=== PATIENT | female | born 1945 | race Caucasian/White ===

== ENCOUNTER → 2019-02-02 | Day surgery (SDC) | payer OTHER | LOC: DS 09:48 | PROVIDERS: ATTEND Internal Medicine | DX: R92.8 Other abnormal and inconclusive findings on diagnostic imaging of breast (principal) ==

== ENCOUNTER 2019-04-12 10:21 | Emergency (ER) | payer OTHER ==
[2019-04-12] MEDS ORDERED: LIDOCAINE 1% MPF 5 ML VIAL ONE (11:06)
[2019-04-12] MEDS ORDERED: TETANUS & DIPHTHERIA TOX,ADULT 0.5 ML VIAL ONE (11:06)
--- NOTE | 2019-04-12 11:23 | RAD REPORT ---
EXAM DESCRIPTION: CT - Head Brain Wo Cont - 04/12/2019 11:11 am CLINICAL HISTORY: TRAUMA Fall, trauma, head injury COMPARISON: Facial Bones W/ Mpr dated 04/12/2019 TECHNIQUE: All CT scans are performed using dose optimization technique as appropriate and may inclu de automated exposure control or mA/KV adjustment according to patient size. FINDINGS: No intracranial hemorrhage, hydrocephalus or extra-axial fluid collection.Mild generalized brain atrophy is present with mild periventricular and deep white matter chronic microvascular ische bull changes.No areas of brain edema or evidence of midline shift. The paranasal sinuses and mastoids are clear. The calvarium is intact. IMPRESSION: No acute intracranial abnormality.
--- NOTE | 2019-04-12 11:27 | RAD REPORT ---
EXAM DESCRIPTION: CT - CTFB CLINICAL HISTORY: FACIAL PAIN Trauma to face with pain and swelling. COMPARISON: No comparisons TECHNIQUE: Axial 2 mm thick images of the face were obtained with sagittal and coronal reconstructio n images. All CT scans are performed using dose optimization technique as appropriate and may include automated exposure control or mA/KV adjustment according to patient size. FINDINGS: Minimal nasal bone fracture is seen with adjacent soft tissue swelling.No additional facia l bone fracture is evident.The mandible is intact. The globes and orbital contents are grossly unremarkable.The paranasal sinuses and mastoids are clear . Carotid atherosclerosis seen. IMPRESSION: Minimal nasal bone fracture.
--- NOTE | 2019-04-12 11:39 | RAD REPORT ---
EXAM DESCRIPTION: RAD - Knee Right 2 View - 04/12/2019 11:05 am CLINICAL HISTORY: PAIN COMPARISON: No comparisons FINDINGS: Subtle lucency is seen in the patella which could represent a hairline fracture if the pat ient is point tender in this region. Elsewhere, no evidence of fracture or joint effusion seen.
--- NOTE | 2019-04-12 11:43 | RAD REPORT ---
EXAM DESCRIPTION: RAD - Knee Left 2 View - 04/12/2019 11:06 am CLINICAL HISTORY: PAIN Trauma, pain COMPARISON: <Comparisons> FINDINGS: No acute fracture or dislocation seen. Trace suprapatellar joint effusion.
--- NOTE | 2019-04-12 12:25 | EDPHYS ---
Physician Documentation [facility] Name: Michela Mata Age: 73 yrs Sex: Female : 1945 Arrival Date: 04/12/2019 Time: 10:24 Bed 13 Private MD: Je Juares F ED Physician Ward Matthews HPI: 04/12 12:25 This 73 yrs old Female presents to ER via Ambulatory with complaints of Fall kb Injury. 12:25 Details of fall: The patient fell from an upright position, while walking. Onset: The kb symptoms/episode began/occurred just prior to arrival. Associated injuries: The patient sustained upper lip, laceration, right knee, abrasion, left knee, abrasion, ecchymosis, swelling, nose, ecchymosis, painful injury, swelling. Severity of symptoms: At their worst the symptoms were moderate, in the emergency department the symptoms are unchanged. The patient has not experienced similar symptoms in the past. The patient has not recently seen a physician. Pt reports she had a nosebleed, slipped in the blood and fell in the bathroom causing laceration to lip and bruising/swelling to nose. Reports she tripped over curb in parking lot and landed on her knees scraping those up as well. Denies LOC, headahce. Historical: - Allergies: 10:40 No Known Allergies; hb - Home Meds: 10:40 aspirin 81 mg Oral chew 1 tab once daily [Active]; hb - Immunization history:: Adult Immunizations up to date. - Social history:: Smoking status: Patient/guardian denies using tobacco. - Ebola Screening: : No symptoms or risks identified at this time. ROS: 12:10 Constitutional: Negative for fever, chills, and weight loss, Eyes: Negative for injury, kb pain, redness, and discharge, Cardiovascular: Negative for chest pain, palpitations, and edema, Respiratory: Negative for shortness of breath, cough, wheezing, and pleuritic chest pain, Abdomen/GI: Negative for abdominal pain, nausea, vomiting, diarrhea, and constipation, Back: Negative for injury and pain, : Negative for injury, bleeding, discharge, and swelling, Neuro: Negative for headache, weakness, numbness, tingling, and seizure. 12:10 ENT: Positive for injury or acute deformity, nose bleed. 12:10 Skin: Positive for abrasion(s), ecchymosis, laceration(s), swelling. Exam: 12:14 Constitutional: This is a well developed, well nourished patient who is awake, alert, kb and in no acute distress. Head/Face: Normocephalic, atraumatic. Chest/axilla: Normal chest wall appearance and motion. Nontender with no deformity. No lesions are appreciated. Cardiovascular: Regular rate and rhythm with a normal S1 and S2. No gallops, murmurs, or rubs. Normal PMI, no JVD. No pulse deficits. Respiratory: Lungs have equal breath sounds bilaterally, clear to auscultation and percussion. No rales, rhonchi or wheezes noted. No increased work of breathing, no retractions or nasal flaring. Abdomen/GI: Soft, non-tender, with normal bowel sounds. No distension or tympany. No guarding or rebound. No evidence of tenderness throughout. MS/ Extremity: Pulses equal, no cyanosis. Neurovascular intact. Full, normal range of motion. Neuro: Awake and alert, GCS 15, oriented to person, place, time, and situation. Cranial nerves II-XII grossly intact. Motor strength 5/5 in all extremities. Sensory grossly intact. Cerebellar exam normal. Normal gait. 12:14 ENT: Nose: clotted blood, in left nare, ecchymosis and swelling noted to bridge ofnose. 12:14 Skin: injury, abrasion(s), small abrasion noted, moderate sized abrasion noted, of the right knee and left knee, laceration(s), the wound is approximately 2 cm(s), of the upper lip, that can be described as clean, no foreign body, irregular, without bleeding. Vital Signs: 10:39 BP 119 / 108; Pulse 110; Resp 16; Temp 98; Pulse Ox 100% ; Weight 83.91 kg; Height 5 hb ft. 6 in. (167.64 cm); Pain 1/10; 10:39 Body Mass Index 29.86 (83.91 kg, 167.64 cm) hb Frontier Coma Score: 10:39 Eye Response: spontaneous(4). Verbal Response: oriented(5). Motor Response: obeys hb commands(6). Total: 15. Trauma Score (Adult): 10:39 Eye Response: spontaneous(1); Verbal Response: oriented(1); Motor Response: obeys hb commands(2); Systolic BP: > 89 mm Hg(4); Respiratory Rate: 10 to 29 per min(4); Frontier Score: 15; Trauma Score: 12 Laceration: 12:23 Wound Repair of 1.5cm ( 0.6in ) subcutaneous laceration to upper lip. Irregularly jr8 shaped.. Minimal bleeding noted.. Distal neuro/vascular/tendon intact. Anesthesia: Local anesthetic administered with 1 mls of 1% lidocaine. Wound prep: Simple cleansing with hibiclenz by ny, Wound irrigation with saline by ny. Skin closed with 4 4-0 Vicryl using simple sutures and sterile technique. Patient tolerated well. MDM: 10:31 Patient medically screened. kb 12:09 Data reviewed: vital signs, nurses notes. Data interpreted: Pulse oximetry: on room air kb is 100 %. Interpretation: normal. Counseling: I had a detailed discussion with the patient and/or guardian regarding: the historical points, exam findings, and any diagnostic results supporting the discharge/admit diagnosis, radiology results, the need for outpatient follow up, an ENT specialist, a family practitioner, to return to the emergency department if symptoms worsen or persist or if there are any questions or concerns that arise at home. 12:27 ED course: No point tenderness on right patella. kb 04/12 10:37 Order name: Knee Right 2 View XRAY; Complete Time: 11:43 kb 04/12 10:37 Order name: Knee Left 2 View XRAY; Complete Time: 11:45 kb 04/12 10:37 Order name: CT Head Brain wo Cont; Complete Time: 11:28 kb 04/12 10:37 Order name: CT Facial Bones W/O Con; Complete Time: 11:28 kb 04/12 10:37 Order name: Vicryl, Sutures; Complete Time: 11:02 kb 04/12 10:37 Order name: Dressing - Wound; Complete Time: 11:02 kb 04/12 10:37 Order name: Gloves, Sterile; Complete Time: 11:03 kb 04/12 10:37 Order name: Setup Suture Tray; Complete Time: 11:03 kb Administered Medications: 11:00 Drug: Tetanus-Diphtheria Toxoid Adult 0.5 ml {Catcher Filter Tip: [employer]. Exp: sg 12/10/2020. Lot #: [id number]. } Route: IM; Site: right deltoid; 11:42 Follow up: Response: No adverse reaction 11:01 Drug: Lidocaine (1 %) 1 vials {Note: medication administered by Dena JC.} Volume: sg 5 ml; Route: Infiltration; 12:36 Drug: Augmentin 875 mg Route: PO; sg Disposition: 17:20 Co-signature as Attending Physician, Ward Matthews MD. rn Disposition: 04/12/19 12:24 Discharged to Home. Impression: Laceration without foreign body of lip, Abrasion of knee, Fracture of nasal bones, Epistaxis, Fall on same level from slipping, tripping and stumbling. - Condition is Stable. - Discharge Instructions: Mouth Laceration, Irab-dp-Hkfe, Fall Prevention in the Home, Decf-jv-[id number], Nasal Fracture, Kgok-py-Vuob, Nosebleed, Loxu-qa-Rkmt. - Prescriptions for Augmentin 875- 125 mg Oral Tablet - take 1 tablet by ORAL route every 12 hours for 10 days; 20 tablet. - Medication Reconciliation Form, Thank You Letter, Antibiotic Education, Prescription Opioid Use form. - Follow up: Private Physician; When: 2 - 3 days; Reason: Recheck today's complaints, Continuance of care, Re-evaluation by your physician. Follow up: Emergency Department; When: As needed; Reason: Worsening of condition. Follow up: Arabella Mahmood MD; When: 2 - 3 days; Reason: Recheck today's complaints. Signatures: Dispatcher [employer] EDMA Kay Chaparro, ELVIE JC-Deondre Fox RN RN Ward Matthews MD MD rn Roszak, Josh, PA PA jr8 Yoli Trotter RN RN hb Corrections: (The following items were deleted from the chart) 13:49 12:24 04/12/2019 12:24 Discharged to Home. Impression: Laceration without foreign body hb of lip; Abrasion of knee; Fracture of nasal bones; Epistaxis; Fall on same level from slipping, tripping and stumbling. Condition is Stable. Forms are Medication Reconciliation Form, Thank You Letter, Antibiotic Education, Prescription Opioid Use. Follow up: Private Physician; When: 2 - 3 days; Reason: Recheck today's complaints, Continuance of care, Re-evaluation by your physician. Follow up: Emergency Department; When: As needed; Reason: Worsening of condition. Follow up: Arabella Mahmood; When: 2 - 3 days; Reason: Recheck today's complaints. kb
--- NOTE | 2019-04-12 12:25 | ER ---
Nurse's Notes [facility] Name: Michela Mata Age: 73 yrs Sex: Female : 1945 Arrival Date: 04/12/2019 Time: 10:24 Bed 13 Private MD: Je Juares F Diagnosis: Laceration without foreign body of lip;Abrasion of knee;Fracture of nasal bones;Epistaxis;Fall on same level from slipping, tripping and stumbling Presentation: 04/12 10:36 Presenting complaint: Had a nosebleed, slipped in the blood, hit face on floor, then hb slipped of a curb landing on knees. Laceration to upper lip and abrasions to bilateral knees noted. Bleeding controlled. Denies LOC. Take ASA. Care prior to arrival: None. Mechanism of Injury: Fall from standing position. Trauma event details: Injury occurred in the [facility], Injury occurred: at home. Injury occurred: April 12, 2019. 10:36 Acuity: ENOCH 2 hb 10:36 Method Of Arrival: Ambulatory hb Trauma Activation: Alert Physician: ED Physician; Name: ; Notified At: ; Arrived At: Physician: General Surgeon; Name: ; Notified At: ; Arrived At: Physician: Radiology; Name: ; Notified At: ; Arrived At: Physician: Respiratory; Name: ; Notified At: ; Arrived At: Physician: Lab; Name: ; Notified At: ; Arrived At: Historical: - Allergies: 10:40 No Known Allergies; hb - Home Meds: 10:40 aspirin 81 mg Oral chew 1 tab once daily [Active]; hb - Immunization history:: Adult Immunizations up to date. - Social history:: Smoking status: Patient/guardian denies using tobacco. - Ebola Screening: : No symptoms or risks identified at this time. Screenin:39 Abuse screen: Denies threats or abuse. Denies injuries from another. Tuberculosis hb screening: No symptoms or risk factors identified. Primary Survey: 10:38 NO uncontrolled hemorrhage observed. A: The patient is alert. Airway: patent, No hb supplemental oxygen in use on arrival. Oral cavity: clear, Trachea midline. Breathing/Chest: Respiratory pattern: regular, Respiratory effort: spontaneous, unlabored, Chest inspection: symmetrical rise and fall of the chest. Circulation: Skin color: pink, Skin temperature: warm, dry. Disability Alert. Exposure/Environment: Obvious injury(ies) are noted at this time: Upper lip laceration, bilateral knee abreasions. Assessment: 11:00 Reassessment: xray at bedside at this time. sg Vital Signs: 10:39 BP 119 / 108; Pulse 110; Resp 16; Temp 98; Pulse Ox 100% ; Weight 83.91 kg; Height 5 hb ft. 6 in. (167.64 cm); Pain 1/10; 10:39 Body Mass Index 29.86 (83.91 kg, 167.64 cm) hb Gildardo Coma Score: 10:39 Eye Response: spontaneous(4). Verbal Response: oriented(5). Motor Response: obeys hb commands(6). Total: 15. Trauma Score (Adult): 10:39 Eye Response: spontaneous(1); Verbal Response: oriented(1); Motor Response: obeys hb commands(2); Systolic BP: > 89 mm Hg(4); Respiratory Rate: 10 to 29 per min(4); Gildardo Score: 15; Trauma Score: 12 ED Course: 10:24 Patient arrived in ED. mr 10:24 Je Juares MD is Private Physician. mr 10:28 Kay Chaparro FNP-C [facility]. kb 10:28 Wrad Matthews MD is Attending Physician. kb 10:37 Triage completed. hb 10:39 Patient has correct armband on for positive identification. hb 10:39 Patient maintains SpO2 saturation greater than 95% on room air. hb 10:40 Deondre Thompson, RN is Primary Nurse. sg 11:06 Knee Right 2 View XRAY In Process Unspecified. EDMS 11:06 Knee Left 2 View XRAY In Process Unspecified. EDMS 11:11 CT Head Brain wo Cont In Process Unspecified. EDMS 11:11 CT Facial Bones W/O Con In Process Unspecified. EDMS 12:24 Arabella Mahmood MD is Referral Physician. kb Administered Medications: 11:00 Drug: Tetanus-Diphtheria Toxoid Adult 0.5 ml {Spool Sander: [employer]. Exp: sg 12/10/2020. Lot #: [id number]. } Route: IM; Site: right deltoid; 11:42 Follow up: Response: No adverse reaction sg 11:01 Drug: Lidocaine (1 %) 1 vials {Note: medication administered by Dena ACUÑA} Volume: sg 5 ml; Route: Infiltration; 12:36 Drug: Augmentin 875 mg Route: PO; sg Outcome: 12:24 Discharge ordered by MD. choudhary 13:49 Patient left the ED. hb Signatures: Dispatcher [employer] EDNC Kay Chaparro FNP-C FNP-Ckb Gay, Steven, RN RN [facility] Yoli Trotter RN RN hb
[2019-04-12] MEDS ORDERED: AMOX/K CLAV 875 MG TAB ONE (12:48)
== END 2019-04-12 13:49 | disposition home or self-care (01) ==
LOC: ER 10:21
PROC: 0CQ03ZZ Repair Upper Lip, Percutaneous Approach (ICD-10-PCS; principal; 2019-04-12)
DX: S01.511A Laceration without foreign body of lip, initial encounter (principal); S80.212A Abrasion, left knee, initial encounter; S80.211A Abrasion, right knee, initial encounter; S02.2XXA Fracture of nasal bones, initial encounter for closed fracture; W01.0XXA Fall on same level from slipping, tripping and stumbling without subsequent striking against object, initial encounter; Y92.002 Bathroom of unspecified non-institutional (private) residence as the place of occurrence of the external cause; Y93.01 Activity, walking, marching and hiking; Y92.481 Parking lot as the place of occurrence of the external cause; R04.0 Epistaxis; Z23 Encounter for immunization
CPT/HCPCS: 70450; 70486; 76377; 90471; 90714; 99284

== ENCOUNTER 2019-08-07 10:59 | Emergency (ER) | payer OTHER ==
[2019-08-07] MEDS ORDERED: ASPIRIN 81 MG CHEWABLE TABLET ONE (11:29)
[2019-08-07] MEDS ORDERED: METOPROLOL TAR 50 MG TAB ONE (11:30)
[2019-08-07 11:35] LABS: Absolute Lymphocytes (CBC) 2.3 K/uL (0.7-4.9); Basophils % 0.7 % (0-1.3); Lymphocytes % 18.3 % (15.3-44.8); MPV 7.4 fL (7.6-11.3); RBC Red Blood Cell Count 4.58 M/uL (3.86-4.86)
[2019-08-07 11:45] LABS: Protime INR 0.96
[2019-08-07 11:56] LABS: ALT/SGPT 22 U/L (12-78); AST/SGOT 20 U/L (15-37); Albumin 3.9 g/dL (3.4-5.0); Alkaline Phosphatase 84 U/L (45-117); BUN Blood Urea Nitrogen 13 mg/dL (7-18); Bicarbonate 26 mmol/L (21-32); Bilirubin Direct 0.2 mg/dL (0-0.2); Bilirubin Total 0.7 mg/dL (0.2-1.0); Glucose Level 120 mg/dL (74-106); Lipase 166 U/L (73-393); NT PRO-BNP 2666 pg/mL (<125); Sodium Level 131 mmol/L (136-145); Troponin (Emerg Dept Use Only) < 0.02 ng/mL (0.0-0.045)
--- NOTE | 2019-08-07 12:07 | RAD REPORT ---
EXAM DESCRIPTION: RAD - Chest Single View - 08/07/2019 11:55 am CLINICAL HISTORY: CHEST PAIN Chest pain. COMPARISON: CHEST PA AND LAT 2 VIEW dated 08/03/2011 FINDINGS: Portable technique limits examination quality. 2-3 cm rounded density is present in the left mid lung, new since comparative study. Differential wou ld include a lung mass or less likely round pneumonia. The heart is upper limit of normal in size. No displaced fractures.CT chest followup assessment suggested.
--- NOTE | 2019-08-07 13:09 | RAD REPORT ---
EXAM DESCRIPTION: CT - Thorax W/ Con - 08/07/2019 12:54 pm CLINICAL HISTORY: Intermittent left-sided chest pain, hypertension, abnormal chest film COMPARISON: Portable chest same date TECHNIQUE: Dynamically enhanced 5 mm thick images of the chest were obtained during administration o f 100 mL non-ionic IV contrast. All CT scans are performed using dose optimization technique as appropriate and may include automated exposure control or mA/KV adjustment according to patient size. FINDINGS: In the anterior mid left lung field there is a 6 centimeter lobulated solid mass. This abu ts the pleura. No chest wall invasion. There are no air bronchograms or calcifications. Mass encircle s vasculature in the anterior mid lung field. This is the correlate to the chest film finding. The ap pearance is that of a malignancy rather than round pneumonia. No adjacent satellite lesions. No abnor mal hilar lymphadenopathy seen. No pleural thickening or pleural effusion. No pneumothorax. No chest wall mass or abnormal axillary lymphadenopathy. No abnormal mediastinal or hilar mass or lymphadenopathy seen. Aortic vascular calcifications are pre sent. Aorta and pulmonary arterial tree enhance normally. No pericardial thickening or effusion. Bony degenerative changes are present. No pathologic bone process seen. IMPRESSION: A lobulated 6 centimeter solid mass is present in the anterior midlung field as a correl ate to the plain film finding. Lateral margin abuts the pleura but is without clear chest wall inva galo. The solid mass has the appearance of malignancy rather than round pneumonia. No abnormal mediastinal or hilar lymphadenopathy.
--- NOTE | 2019-08-07 14:07 | ER ---
Nurse's Notes [facility] Name: Michela Mata Age: 74 yrs Sex: Female : 1945 Arrival Date: 08/07/2019 Time: 11:03 Bed 6 Private MD: Je Juares F Diagnosis: Essential (primary) hypertension;Chest pain on breathing;Chest pain, unspecified-6 cm left chest mass,anterior mid lung field;Tobacco abuse counseling;Tobacco use Presentation: 08/07 11:06 Presenting complaint: Intermittent left sided chest pain x 4 days. Denies hb nausea/cough/SOB. Transition of care: patient was not received from another setting of care. Onset of symptoms was August 03, 2019. Risk Assessment: Do you want to hurt yourself or someone else? Patient reports no desire to harm self or others. Initial Sepsis Screen: Does the patient meet any 2 criteria? No. Patient's initial sepsis screen is negative. Does the patient have a suspected source of infection? No. Patient's initial sepsis screen is negative. Care prior to arrival: None. 11:06 Method Of Arrival: Ambulatory hb 11:06 Acuity: ENOCH 3 hb Historical: - Allergies: 11:10 No Known Allergies; hb - Home Meds: 11:10 aspirin 81 mg Oral chew 1 tab once daily [Active]; hb - PMHx: 11:10 Hypertension; hb - Immunization history:: Adult Immunizations up to date. - Social history:: Smoking status: Patient uses tobacco products, smokes one pack cigarettes per day. - Ebola Screening: : No symptoms or risks identified at this time. - Family history:: not pertinent. Screenin:17 Abuse screen: Denies threats or abuse. Nutritional screening: No deficits noted. tw2 Tuberculosis screening: No symptoms or risk factors identified. Fall Risk Secondary diagnosis (15 points) impaired mobility, Ambulatory Aid- Crutches/Cane/Walker (15 pts). Assessment: 11:16 General: Appears in no apparent distress. Behavior is calm, cooperative, appropriate tw2 for age. Pain: Complains of pain in chest Pain does not radiate. Pain began 2-3 days ago. 11:16 Neuro: Level of Consciousness is awake, alert, obeys commands, Oriented to person, tw2 place, time, situation. Cardiovascular: Reports chest pain, Denies shortness of breath, Heart tones S1 S2 Patient's skin is warm and dry. Respiratory: Airway is patent Respiratory effort is even, unlabored, Respiratory pattern is regular, symmetrical, Breath sounds are clear bilaterally. GI: No signs and/or symptoms were reported involving the gastrointestinal system. Abdomen is flat, Bowel sounds present X 4 quads. : No signs and/or symptoms were reported regarding the genitourinary system. EENT: No signs and/or symptoms were reported regarding the EENT system. Derm: No signs and/or symptoms reported regarding the dermatologic system. Musculoskeletal: Range of motion: intact in all extremities. 12:19 Reassessment: Patient appears in no apparent distress at this time. No changes from tw2 previously documented assessment. Patient and/or family updated on plan of care and expected duration. Pain level reassessed. Patient is alert, oriented x 3, equal unlabored respirations, skin warm/dry/pink. 13:13 Reassessment: Patient appears in no apparent distress at this time. No changes from tw2 previously documented assessment. Patient and/or family updated on plan of care and expected duration. Pain level reassessed. Patient is alert, oriented x 3, equal unlabored respirations, skin warm/dry/pink. Vital Signs: 11:10 BP 198 / 98; Pulse 67; Resp 20; Temp 97.8; Pulse Ox 100% on R/A; Weight 89.36 kg; hb Height 5 ft. 5 in. (165.10 cm); Pain 0/10; 11:38 BP 142 / 95; Pulse 90; Resp 18; Pulse Ox 100% on R/A; sg 12:19 BP 129 / 91; Pulse 77; Resp 20; Pulse Ox 96% on R/A; tw2 13:13 BP 156 / 88; Pulse 76; Resp 19; Pulse Ox 95% on R/A; tw2 14:28 BP 145 / 77; Pulse 71; Resp 19; Pulse Ox 95% on R/A; tw2 11:10 Body Mass Index 32.78 (89.36 kg, 165.10 cm) hb ED Course: 11:03 Patient arrived in ED. mr 11:03 Je Juares MD is Private Physician. mr 11:08 Triage completed. hb 11:10 Arm band placed on. hb 11:16 Cinthya Delarosa, RON is Primary Nurse. tw2 11:17 Bed in low position. Call light in reach. comb tender on. Pulse ox on. NIBP on. tw2 11:17 Patient maintains SpO2 saturation greater than 95% on room air. tw2 11:20 Angel Roe MD is Attending Physician. [facility] 11:20 EKG done, by tool grinding technician. reviewed by Angel Roe MD. at1 11:22 Inserted saline lock: 22 gauge in right forearm, using aseptic technique. Blood tw2 collected. 11:54 XRAY Chest (1 view) In Process Unspecified. EDMS 12:56 CT Chest W/ Con In Process Unspecified. EDMS 14:02 Je Juares MD is Referral Physician. [facility] 14:02 Unruly Tavera MD is Referral Physician. [facility] 14:21 Urine collected: clean catch specimen, clear, cloudy. ms 14:28 No provider procedures requiring assistance completed. IV discontinued, intact, tw2 bleeding controlled, No redness/swelling at site. Pressure dressing applied. Administered Medications: 11:35 Drug: Aspirin 162 mg Route: PO; sg 12:19 Follow up: Response: No adverse reaction tw2 11:38 Drug: Lopressor (metoprolol TARTRATE) 50 mg Route: PO; sg 12:20 Follow up: Response: No adverse reaction; Blood pressure is lowered tw2 14:27 Not Given (Patient Refused): Augmentin 875 mg PO once tw2 14:28 Not Given (Patient Refused): Rocephin 1 grams IV at per protocol once; Given slow IV tw2 push per pharmacy instructions Outcome: 14:06 Discharge ordered by . [facility] 14:28 Discharged to home ambulatory, with family. tw2 14:28 Condition: stable 14:28 Discharge instructions given to patient, family, Instructed on discharge instructions, follow up and referral plans. no drinking with medication, no driving heavy equipment, medication usage, Demonstrated understanding of instructions, follow-up care, medications, Prescriptions given X 3. 14:29 Patient left the ED. tw2 Signatures: Dispatcher [employer] Deondre Pardo, RN Angel Johnson MD MD cha Rivera, Cynthia mr Key, Molly StephensonRobyn, agribusiness professor EKG Tat1 Yoli Trotter RN RN Cinthya Delarosa RN RN tw2
--- NOTE | 2019-08-07 14:07 | EDPHYS ---
Physician Documentation [facility] Name: Michela Mata Age: 74 yrs Sex: Female : 1945 Arrival Date: 08/07/2019 Time: 11:03 Bed 6 Private MD: Je Juares F ED Physician Angel Roe HPI: 08/07 12:43 This 74 yrs old Female presents to ER via Ambulatory with complaints of Chest aaron Pain. 12:43 This 74 yrs old Female presents to ER via Ambulatory with complaints of Chest aaron Pain. 12:43 The patient or guardian reports chest pain that is located primarily in the anterior aaron chest wall, left. Onset: 5 day(s) ago. The pain does not radiate. Associated signs and symptoms: The patient has no apparent associated signs or symptoms. The chest pain is described as a pressure. Duration: The patient or guardian reports multiple episodes, that have now resolved. Severity of pain: At its worst the pain was mild moderate in the emergency department the pain has resolved. The patient has experienced a previous episode, last night. Historical: - Allergies: 11:10 No Known Allergies; hb - Home Meds: 11:10 aspirin 81 mg Oral chew 1 tab once daily [Active]; hb - PMHx: 11:10 Hypertension; hb - Immunization history:: Adult Immunizations up to date. - Social history:: Smoking status: Patient uses tobacco products, smokes one pack cigarettes per day. - Ebola Screening: : No symptoms or risks identified at this time. - Family history:: not pertinent. ROS: 12:43 Constitutional: Negative for fever, chills, and weight loss, Eyes: Negative for injury, aaron pain, redness, and discharge, ENT: Negative for injury, pain, and discharge, Neck: Negative for injury, pain, and swelling, Respiratory: Negative for shortness of breath, cough, wheezing, and pleuritic chest pain, Abdomen/GI: Negative for abdominal pain, nausea, vomiting, diarrhea, and constipation, Back: Negative for injury and pain, : Negative for injury, bleeding, discharge, and swelling, MS/Extremity: Negative for injury and deformity, Skin: Negative for injury, rash, and discoloration, Neuro: Negative for headache, weakness, numbness, tingling, and seizure, Psych: Negative for depression, anxiety, suicide ideation, homicidal ideation, and hallucinations, Allergy/Immunology: Negative for hives, rash, and allergies, Endocrine: Negative for neck swelling, polydipsia, polyuria, polyphagia, and marked weight changes, Hematologic/Lymphatic: Negative for swollen nodes, abnormal bleeding, and unusual bruising. 12:43 Cardiovascular: Positive for chest pain, of the left lateral posterior chest and left lateral anterior chest. Exam: 12:43 Constitutional: This is a well developed, well nourished patient who is awake, alert, aaron and in no acute distress. Head/Face: Normocephalic, atraumatic. Eyes: Pupils equal round and reactive to light, extra-ocular motions intact. Lids and lashes normal. Conjunctiva and sclera are non-icteric and not injected. Cornea within normal limits. Periorbital areas with no swelling, redness, or edema. ENT: Nares patent. No nasal discharge, no septal abnormalities noted. Tympanic membranes are normal and external auditory canals are clear. Oropharynx with no redness, swelling, or masses, exudates, or evidence of obstruction, uvula midline. Mucous membranes moist. Neck: Trachea midline, no thyromegaly or masses palpated, and no cervical lymphadenopathy. Supple, full range of motion without nuchal rigidity, or vertebral point tenderness. No Meningismus. Chest/axilla: Normal chest wall appearance and motion. Nontender with no deformity. No lesions are appreciated. Cardiovascular: Regular rate and rhythm with a normal S1 and S2. No gallops, murmurs, or rubs. Normal PMI, no JVD. No pulse deficits. Respiratory: Lungs have equal breath sounds bilaterally, clear to auscultation and percussion. No rales, rhonchi or wheezes noted. No increased work of breathing, no retractions or nasal flaring. Abdomen/GI: Soft, non-tender, with normal bowel sounds. No distension or tympany. No guarding or rebound. No evidence of tenderness throughout. Back: No spinal tenderness. No costovertebral tenderness. Full range of motion. Skin: Warm, dry with normal turgor. Normal color with no rashes, no lesions, and no evidence of cellulitis. MS/ Extremity: Pulses equal, no cyanosis. Neurovascular intact. Full, normal range of motion. Neuro: Awake and alert, GCS 15, oriented to person, place, time, and situation. Cranial nerves II-XII grossly intact. Motor strength 5/5 in all extremities. Sensory grossly intact. Cerebellar exam normal. Normal gait. Psych: Awake, alert, with orientation to person, place and time. Behavior, mood, and affect are within normal limits. 12:43 Musculoskeletal/extremity: DVT Exam: No signs of deep vein thrombosis. no pain, no swelling, no tenderness, negative Homans' sign noted on exam, no appreciated bluish discoloration, no erythema, no increased warmth. Vital Signs: 11:10 BP 198 / 98; Pulse 67; Resp 20; Temp 97.8; Pulse Ox 100% on R/A; Weight 89.36 kg; hb Height 5 ft. 5 in. (165.10 cm); Pain 0/10; 11:38 BP 142 / 95; Pulse 90; Resp 18; Pulse Ox 100% on R/A; sg 12:19 BP 129 / 91; Pulse 77; Resp 20; Pulse Ox 96% on R/A; tw2 13:13 BP 156 / 88; Pulse 76; Resp 19; Pulse Ox 95% on R/A; tw2 14:28 BP 145 / 77; Pulse 71; Resp 19; Pulse Ox 95% on R/A; tw2 11:10 Body Mass Index 32.78 (89.36 kg, 165.10 cm) hb MDM: 11:20 Patient medically screened. [facility] 12:56 Data reviewed: vital signs, nurses notes, lab test result(s), EKG, radiologic studies, [facility] CT scan, plain films. 08/07 11:21 Order name: Basic Metabolic Panel; Complete Time: 12:36 [facility] 08/07 11:21 Order name: CBC with Diff; Complete Time: 12:36 [facility] 08/07 11:21 Order name: LFT's; Complete Time: 12:36 [facility] 08/07 11:21 Order name: Magnesium; Complete Time: 12:36 [facility] 08/07 11:21 Order name: NT PRO-BNP; Complete Time: 12:36 [facility] 08/07 11:21 Order name: PT-INR; Complete Time: 12:36 [facility] 08/07 11:21 Order name: Troponin (emerg Dept Use Only); Complete Time: 12:36 [facility] 08/07 11:21 Order name: XRAY Chest (1 view); Complete Time: 12:36 [facility] 08/07 11:21 Order name: Lipase; Complete Time: 12:36 [facility] 08/07 12:43 Order name: CT Chest W/ Con; Complete Time: 13:27 [facility] 08/07 12:43 Order name: Blood Culture Adult (2) [facility] 08/07 12:43 Order name: Procalcitonin [facility] 08/07 14:23 Order name: Urine Dipstick--Ancillary (enter results) 08/07 11:14 Order name: EKG; Complete Time: 11:14 08/07 11:21 Order name: Cardiac monitoring; Complete Time: 11:22 [facility] 08/07 11:21 Order name: IV Saline Lock; Complete Time: 11:28 [facility] 08/07 11:21 Order name: Labs collected and sent; Complete Time: 11:28 [facility] 08/07 11:21 Order name: O2 Per Protocol; Complete Time: 11:22 [facility] 08/07 11:21 Order name: O2 Sat Monitoring; Complete Time: 11:22 [facility] 08/07 11:21 Order name: Urine Dipstick-Ancillary (obtain specimen); Complete Time: 14:21 [facility] Administered Medications: 11:35 Drug: Aspirin 162 mg Route: PO; sg 12:19 Follow up: Response: No adverse reaction tw2 11:38 Drug: Lopressor (metoprolol TARTRATE) 50 mg Route: PO; sg 12:20 Follow up: Response: No adverse reaction; Blood pressure is lowered tw2 14:27 Not Given (Patient Refused): Augmentin 875 mg PO once tw2 14:28 Not Given (Patient Refused): Rocephin 1 grams IV at per protocol once; Given slow IV tw2 push per pharmacy instructions Disposition: 08/07/19 14:06 Discharged to Home. Impression: Essential (primary) hypertension, Chest pain on breathing, Chest pain, unspecified - 6 cm left chest mass,anterior mid lung field, Tobacco abuse counseling, Tobacco use. - Condition is Fair. - Discharge Instructions: Nonspecific Chest Pain, Hypertension, Nonspecific Chest Pain, Vidt-ws-Pgog, Hypertension, Wvyr-as-Lyyd, Lung Cancer, Tobacco Use Disorder, How to Take Your Blood Pressure, Gjci-uf-Vwtw, Aspirin and Your Heart, Managing Your Hypertension. - Prescriptions for Norvasc 5 mg Oral Tablet - take 1 tablet by ORAL route once daily; 20 tablet. Tylenol- Codeine #3 300-30 mg Oral Tablet - take 2 tablet by ORAL route every 6 hours As needed; 30 tablet. Augmentin 875- 125 mg Oral Tablet - take 1 tablet by ORAL route every 12 hours for 10 days; 20 tablet. - Medication Reconciliation Form, Thank You Letter, Antibiotic Education, Prescription Opioid Use form. - Follow up: Je Juares MD; When: 2 - 3 days; Reason: Recheck today's complaints, Continuance of care, Re-evaluation by your physician. Follow up: Unruly Tavera MD; When: 2 - 3 days; Reason: Recheck today's complaints, Continuance of care, Re-evaluation by your physician. - Problem is new. - Symptoms have improved. Signatures: Dispatcher [employer] EDMS Deondre Thompson RN RN sg Anderson, Corey, MD MD cha Baxter, Heather, RN RN Cinthya Delarosa RN RN tw2 Corrections: (The following items were deleted from the chart) 14:07 14:06 08/07/2019 14:06 Discharged to Home. Impression: Essential (primary) aaron hypertension; Chest pain on breathing; Chest pain, unspecified - 6 cm left chest mass,anterior mid lung field. Condition is Fair. Forms are Medication Reconciliation Form, Thank You Letter, Antibiotic Education, Prescription Opioid Use. Follow up: Je Juares; When: 2 - 3 days; Reason: Recheck today's complaints, Continuance of care, Re-evaluation by your physician. Follow up: Unruly Tavera; When: 2 - 3 days; Reason: Recheck today's complaints, Continuance of care, Re-evaluation by your physician. Problem is new. Symptoms have improved. aaron 14:29 14:07 08/07/2019 14:06 Discharged to Home. Impression: Essential (primary) tw2 hypertension; Chest pain on breathing; Chest pain, unspecified - 6 cm left chest mass,anterior mid lung field; Tobacco abuse counseling; Tobacco use. Condition is Fair. Discharge Instructions: Nonspecific Chest Pain, Hypertension, Nonspecific Chest Pain, Dkjy-dr-Eudu, Hypertension, Vube-yv-Luiu, Lung Cancer, How to Take Your Blood Pressure, Zszb-ld-Pnsq, Aspirin and Your Heart, Managing Your Hypertension, Tobacco Use Disorder. Prescriptions for Norvasc 5 mg Oral Tablet - take 1 tablet by ORAL route once daily; 20 tablet, Tylenol-Codeine #3 300-30 mg Oral Tablet - take 2 tablet by ORAL route every 6 hours As needed; 30 tablet. and Forms are Medication Reconciliation Form, Thank You Letter, Antibiotic Education, Prescription Opioid Use. Follow up: Je Juares; When: 2 - 3 days; Reason: Recheck today's complaints, Continuance of care, Re-evaluation by your physician. Follow up: Unruly Tavera; When: 2 - 3 days; Reason: Recheck today's complaints, Continuance of care, Re-evaluation by your physician. Problem is new. Symptoms have improved. aaron
[2019-08-07 14:56] LABS: Urine Blood NEGATIVE (NEG); Urine Glucose NEGATIVE (NEG); Urine Protein NEGATIVE (NEG)
--- NOTE | 2019-08-07 15:08 | EKG ---
Test Date: 2019-08-07 Test Time: 11:18:37 Second Time Worker: AFSHIN MEASUREMENT RESULTS: Intervals: Rate: 95 MN: 190 QRSD: 88 QT: 348 QTc: 437 [place]: P: 36 MN: 190 QRS: 1 T: 86 INTERPRETIVE STATEMENTS: Normal sinus rhythm Nonspecific ST and T wave abnormality Abnormal ECG No previous ECG available for comparison Electronically Signed On 08-07-19 15:07:36 [employer]PECTOR [employer] by Angel Somers
[2019-08-07 20:30] VITALS: TEMP 97.8
[2019-08-07 20:34] VITALS: O2SAT 95
[2019-08-07 20:36] VITALS: BP 145/77
== END 2019-08-07 14:29 | disposition home or self-care (01) ==
LOC: ER 10:59
DX: R22.2 Localized swelling, mass and lump, trunk (principal); I10 Essential (primary) hypertension; Z72.0 Tobacco use; Z71.6 Tobacco abuse counseling; Z79.82 Long term (current) use of aspirin
CPT/HCPCS: 93005; 87040 ×2; 85025; 80048; 36415; 83735; 85610; 80076; 81003; 84484; 83690; 84145; 83880; 71260; 71045; 99285; Q9967

== ENCOUNTER 2019-08-10 12:08 | Observation (INO) | payer OTHER ==
--- NOTE | 2019-08-10 12:34 | RAD REPORT ---
EXAM DESCRIPTION: CT - Ct Stroke Brain Wo Cont - 08/10/2019 12:28 pm CLINICAL HISTORY: TIA, stroke-like symptoms, extremity weakness CLINICAL HISTORY: CT head March 2019 TECHNIQUE: Axial 5 millimeter thick images of the head were obtained without IV contrast. All CT scans are performed using dose optimization technique as appropriate and may include automated exposure control or mA/KV adjustment according to patient size. FINDINGS: No intracranial hemorrhage, mass, or cerebral edema. No acute infarction identifiable. Mod erate atrophy and chronic ischemic changes are present. No cortical edema or sulcal effacement. Ventr icles are in proportion to the amount of volume loss. Arterial and physiologic calcifications are pre sent. Intracranial findings are similar to comparison. Visualized portions of the mastoid air cells, paranasal sinuses, and orbits are unremarkable. Findings telephoned to the referring clinician 12:19 p.m. IMPRESSION: No CT evidence of acute intracranial process. Patient does have moderate atrophy and chronic ischemic change. Intracranial findings similar to comp arison. Chronic ischemic changes can mask nonhemorrhagic acute infarction. MR brain followup can be obtained if there is ongoing concern for acute ischemia.
[2019-08-10 12:39] LABS: Absolute Lymphocytes (CBC) 1.2 K/uL (0.7-4.9); Basophils % 0.3 % (0-1.3); Hematocrit 42.8 % (36.0-45.0); Lymphocytes % 7.1 % (15.3-44.8); MPV 7.7 fL (7.6-11.3); RBC Red Blood Cell Count 4.62 M/uL (3.86-4.86)
[2019-08-10 12:52] LABS: Protime INR 0.88
[2019-08-10 12:59] LABS: BUN Blood Urea Nitrogen 11 mg/dL (7-18); Bicarbonate 28 mmol/L (21-32); Glucose Level 119 mg/dL (74-106); Magnesium 2.4 mg/dL (1.8-2.4); Potassium 4.1 mmol/L (3.5-5.1); Sodium Level 134 mmol/L (136-145); Troponin (Emerg Dept Use Only) < 0.02 ng/mL (0.0-0.045)
--- NOTE | 2019-08-10 13:00 | RAD REPORT ---
EXAM DESCRIPTION: Matt Single View08/10/2019 12:55 pm CLINICAL HISTORY: Chest pain COMPARISON: August 07, 2019 FINDINGS: No change in the mid left lung mass. The right lung appears clear of acute infiltrate The heart is mildly enlarged
[2019-08-10 13:04] LABS: Blood Morphology Comment NOT SEEN (NOT SEEN); Platelet Estimate ADEQ
[2019-08-10] MEDS ORDERED: CLOPIDOGREL 75 MG TABLET ONE (13:13)
[2019-08-10] MEDS ORDERED: ASPIRIN 81 MG CHEWABLE TABLET ONE (13:13)
[2019-08-10] MEDS ORDERED: FOLIC ACID 5 MG/ML VIAL ONE (13:14)
--- NOTE | 2019-08-10 13:15 | ER ---
Nurse's Notes [facility] [place], [place] Name: Michela Mata Age: 74 yrs Sex: Female : 1945 Arrival Date: 08/10/2019 Time: 12:16 Bed 3 Private MD: Diagnosis: Transient cerebral ischemic attack, unspecified Presentation: 08/10 12:06 Presenting complaint: EMS states: Sudden onset of feeling weak and slurred speech that ss began at 1100. Son was speaking to patient on the phone when symptoms began, rushed over and by the time he arrived at the patient's home her speech was slightly slurred, but improved. On EMS arrival, patient was reportedly back to baseline and had clear speech. Transition of care: patient was not received from another setting of care. Onset of symptoms was August 10, 2019 at 11:00. Risk Assessment: Do you want to hurt yourself or someone else? Patient reports no desire to harm self or others. Initial Sepsis Screen: Does the patient have a suspected source of infection? No. Patient's initial sepsis screen is negative. Care prior to arrival: Glucose check: 130. 12:06 Acuity: ENOCH 2 ss 12:06 Method Of Arrival: EMS: [facility] ss 12:27 Initial Sepsis Screen: Does the patient meet any 2 criteria? RR > 20 per min. No. sv Patient's initial sepsis screen is negative. Does the patient have a suspected source of infection? No. Patient's initial sepsis screen is negative. Historical: - Allergies: 12:27 No Known Allergies; sv - Home Meds: 12:27 aspirin 81 mg Oral chew 1 tab once daily [Active]; pravastatin oral oral [Active]; sv Coreg Oral [Active]; - PMHx: 12:20 Hypertension; ss - Immunization history:: Adult Immunizations up to date. - Ebola Screening: : No symptoms or risks identified at this time. - Social history:: Smoking status: Patient uses tobacco products, smokes one pack cigarettes per day. Screenin:25 Abuse screen: Denies threats or abuse. Denies injuries from another. Nutritional sv screening: No deficits noted. Tuberculosis screening: No symptoms or risk factors identified. Patient has been NPO before screening. The patient is alert, able to follow commands. The patient does not exhibit slurred or garbled speech The patient is not exhibiting difficulty speaking. The patient does not exhibit difficulty understanding words. The patient is able to swallow own secretions with no drooling or need for suction. Patient tolerated one teaspoon of water. No drooling, immediate coughing, gurgling, or clearing of the throat was noted. The patient tolerated 90mL of water. No drooling, immediate coughing, gurgling, or clearing of the throat was noted. The patient passed the bedside swallow screening. Oral medications may be given as ordered. Contact Physician for further diet orders. Provider notified of bedside swallow screening results: Tomas VERDUZCO. Fall Risk None identified. Assessment: 12:06 Reassessment: Code Stroke called. Pt to CT on EMS stretcher. ss 12:16 Reassessment: Pt back from CT via stretcher with Fatoumata VELASQUEZ. sv 12:20 General: Appears in no apparent distress. comfortable, well developed, Behavior is sv calm, cooperative, appropriate for age. Pain: Denies pain. Neuro: Level of Consciousness is awake, alert, obeys commands, Oriented to person, place, time, situation, School Bus Driver/Custodian are equal bilaterally Moves all extremities. Full function Speech is normal, Facial symmetry appears normal, Facial symmetry: tongue is midline, Pupils are PERRLA. Cardiovascular: Rhythm is sinus rhythm. Respiratory: Airway is patent Respiratory effort is even, unlabored, Respiratory pattern is regular, symmetrical. Derm: Skin is pink, warm \T\ dry. 12:23 Reassessment: BS-119. sv 12:45 Reassessment: Xray at the bedside. sv 14:02 Reassessment: Attempted to call report, nurse to call back. sv 14:19 Reassessment: Attempted to call report. Nurse and charge nurse unavailable, will call sv back. 14:38 Reassessment: Patient appears in no apparent distress at this time. No changes from sv previously documented assessment. Patient and/or family updated on plan of care and expected duration. Pain level reassessed. Patient is alert, oriented x 3, equal unlabored respirations, skin warm/dry/pink. Vital Signs: 12:06 Pulse 87; Temp 97.4(O); ss 12:17 BP 117 / 75; Pulse 92; Resp 24; Temp 97.5; Pulse Ox 99% ; Pain 0/10; sv 12:30 BP 125 / 78; Pulse 97; Resp 28; Pulse Ox 97% ; sv 13:00 BP 95 / 59; Pulse 92; Resp 23; Pulse Ox 95% ; sv 13:30 BP 110 / 66; Pulse 95; Resp 18; Pulse Ox 98% ; sv 14:20 BP 133 / 80; Pulse 99; Resp 14; Pulse Ox 96% on R/A; sv NIH Stroke Scale Scores: 12:20 NIHSS Score: 0 sv 12:23 NIHSS Score: 0 jr8 ED Course: 12:06 Arm band placed on right wrist. ss 12:16 Patient arrived in ED. sv 12:20 Patient has correct armband on for positive identification. Placed in gown. Bed in low sv position. Call light in reach. Side rails up X2. groundwater monitoring technician on. Pulse ox on. NIBP on. Door closed. Warm blanket given. Head of bed elevated. 12:21 Inserted saline lock: 20 gauge in left forearm, using aseptic technique. Blood sv collected. Flushed left forearm with 5 ml normal saline. 12:23 Tomas Aquino PA is PHCP. jr8 12:23 Ward Matthews MD is Attending Physician. jr8 12:25 Arabella Carl, RON is Primary Nurse. sv 12:25 EKG done, by xray tech. reviewed by Tomas VERDUZCO. sv 12:26 Triage completed. ss 12:28 CT Stroke Brain w/o Contrast In Process Unspecified. EDMS 12:33 Awaiting for x-ray. sv 12:35 EKG done, by xray tech. reviewed by Tomas VERDUZCO. at1 12:37 Awaiting lab results. sv 12:55 Stroke CXR 1 View In Process Unspecified. EDMS 13:15 Je Juares MD is Hospitalizing Provider. jr8 13:53 No provider procedures requiring assistance completed. Patient admitted, IV remains in sv place. intact. Administered Medications: 13:20 Drug: foLIC Acid 1 mg Route: IVPB; Site: left forearm; sv 13:20 Drug: PlaVIX 75 mg Route: PO; sv 13:30 CANCELLED (Pt took 1 81 mg tab this morning, ok by Tomas VERDUZCO not to give this dose): sv Aspirin 81 mg PO once Outcome: 13:15 Decision to Hospitalize by Provider. jr8 14:36 Admitted to [facility] via wheelchair, room 213, with chart, Report called to Bren fuentes 14:36 Condition: stable 14:36 Instructed on the need for admit. 14:55 Patient left the ED. NIH Stroke Scale - NIH Stroke Score Date: 08/10/2019 Time: 12:20 Total Score = 0 1a. Level of Consciousness (LOC) - 0(Alert) 1b. Level of Consciousness (LOC) (Year \T\ Age) - 0(Both) 1c. LOC Commands (Open \T\ Closes Eyes/Director Blood Bank) - 0(Both) 2. Best Gaze (Lateral Gaze Paresis) - 0(Normal) 3. Visual Field Loss - 0(No visual loss) 4. Facial Palsy - 0(Normal) 5a. Left Arm: Motor (10-second hold) - 0(No drift) 5b. Right Arm: Motor (10-second hold) - 0(No drift) 6a. Left Leg: Motor (5-second hold - always test supine) - 0(No drift) 6b. Right Leg: Motor (5-second hold - always test supine) - 0(No drift) 7. Limb Ataxia (finger/nose \T\ heel/person - test with eyes open) - 0(Absent) 8. Sensory Loss (pinprick arms/legs/face) - 0(Normal) 9. Best Language: Aphasia (description/naming/reading) - 0(No aphasia) 10. Dysarthria (speech clarity - read or repeat words) - 0(Normal) 11. Extinction and Inattention (visual/tactile/auditory/spatial/personal) - 0(No abnormality) Initials: NIH Stroke Scale - NIH Stroke Score Date: 08/10/2019 Time: 12:23 Total Score = 0 1a. Level of Consciousness (LOC) - 0(Alert) 1b. Level of Consciousness (LOC) (Year \T\ Age) - 0(Both) 1c. LOC Commands (Open \T\ Closes Eyes/Director Blood Bank) - 0(Both) 2. Best Gaze (Lateral Gaze Paresis) - 0(Normal) 3. Visual Field Loss - 0(No visual loss) 4. Facial Palsy - 0(Normal) 5a. Left Arm: Motor (10-second hold) - 0(No drift) 5b. Right Arm: Motor (10-second hold) - 0(No drift) 6a. Left Leg: Motor (5-second hold - always test supine) - 0(No drift) 6b. Right Leg: Motor (5-second hold - always test supine) - 0(No drift) 7. Limb Ataxia (finger/nose \T\ heel/person - test with eyes open) - 0(Absent) 8. Sensory Loss (pinprick arms/legs/face) - 0(Normal) 9. Best Language: Aphasia (description/naming/reading) - 0(No aphasia) 10. Dysarthria (speech clarity - read or repeat words) - 0(Normal) 11. Extinction and Inattention (visual/tactile/auditory/spatial/personal) - 0(No abnormality) Initials: jrElicia Signatures: Dispatcher [employer] Arabella Dey RN Fatoumata Lagunas RN RN ss Roszak, Josh, PA PA jr8 Robyn Stephenson, director of event sales EKG Tat1
--- NOTE | 2019-08-10 13:16 | EDPHYS ---
Physician Documentation [facility] [place] Name: Michela Mata Age: 74 yrs Sex: Female : 1945 Arrival Date: 08/10/2019 Time: 12:16 Bed 3 Private MD: ED Physician Ward Matthews HPI: 08/10 12:24 This 74 yrs old Female presents to ER via Unassigned with complaints of S/S jr8 of Possible Stroke. 12:24 The patient's problem is reported as dysphasia, slurred speech, weakness, that is jr8 generalized. Onset: The symptoms/episode began/occurred acutely, today, at 11:00. Duration: This was a single incident, lasting 30 minute(s). Context: the episode(s) was witnessed, by family, symptoms became apparent at 11:00. occurred at home, occurred while the patient was at rest. The symptoms are alleviated by nothing. The symptoms are aggravated by nothing. Associated signs and symptoms: The patient has no apparent associated signs or symptoms. Severity of symptoms: At their worst the symptoms were moderate in the emergency department the symptoms have resolved. Patient's baseline: Neuro: alert and fully oriented, Motor: no deficits, Ambulation: walks without assistance, Speech: normal. The patient has not experienced similar symptoms in the past. The patient has been recently seen by a physician: with different complaint(s), lab tests were performed, X-rays were performed. Historical: - Allergies: 12:27 No Known Allergies; sv - Home Meds: 12:27 aspirin 81 mg Oral chew 1 tab once daily [Active]; pravastatin oral oral [Active]; sv Coreg Oral [Active]; - PMHx: 12:20 Hypertension; ss - Immunization history:: Adult Immunizations up to date. - Ebola Screening: : No symptoms or risks identified at this time. - Social history:: Smoking status: Patient uses tobacco products, smokes one pack cigarettes per day. ROS: 12:24 Eyes: Negative for injury, pain, redness, and discharge, ENT: Negative for injury, jr8 pain, and discharge, Neck: Negative for injury, pain, and swelling, Cardiovascular: Negative for chest pain, palpitations, and edema, Respiratory: Negative for shortness of breath, cough, wheezing, and pleuritic chest pain, Abdomen/GI: Negative for abdominal pain, nausea, vomiting, diarrhea, and constipation, Back: Negative for injury and pain, MS/Extremity: Negative for injury and deformity, Skin: Negative for injury, rash, and discoloration. 12:24 Neuro: Positive for speech changes, weakness. Exam: 12:23 Radiologist reports: Negative for acute findings jr8 12:23 Constitutional: This is a well developed, well nourished patient who is awake, alert, and in no acute distress. Eyes: Pupils equal round and reactive to light, extra-ocular motions intact. Lids and lashes normal. Conjunctiva and sclera are non-icteric and not injected. Cornea within normal limits. Periorbital areas with no swelling, redness, or edema. ENT: Nares patent. No nasal discharge, no septal abnormalities noted. Tympanic membranes are normal and external auditory canals are clear. Oropharynx with no redness, swelling, or masses, exudates, or evidence of obstruction, uvula midline. Mucous membranes moist. Neck: Trachea midline, no thyromegaly or masses palpated, and no cervical lymphadenopathy. Supple, full range of motion without nuchal rigidity, or vertebral point tenderness. No Meningismus. Cardiovascular: Regular rate and rhythm with a normal S1 and S2. No gallops, murmurs, or rubs. Normal PMI, no JVD. No pulse deficits. Respiratory: Lungs have equal breath sounds bilaterally, clear to auscultation and percussion. No rales, rhonchi or wheezes noted. No increased work of breathing, no retractions or nasal flaring. Abdomen/GI: Soft, non-tender, with normal bowel sounds. No distension or tympany. No guarding or rebound. No evidence of tenderness throughout. Back: No spinal tenderness. No costovertebral tenderness. Full range of motion. Skin: Warm, dry with normal turgor. Normal color with no rashes, no lesions, and no evidence of cellulitis. MS/ Extremity: Pulses equal, no cyanosis. Neurovascular intact. Full, normal range of motion. Neuro: Awake and alert, GCS 15, oriented to person, place, time, and situation. Cranial nerves II-XII grossly intact. Motor strength 5/5 in all extremities. Sensory grossly intact. Cerebellar exam normal. Normal gait. Vital Signs: 12:06 Pulse 87; Temp 97.4(O); ss 12:17 BP 117 / 75; Pulse 92; Resp 24; Temp 97.5; Pulse Ox 99% ; Pain 0/10; sv 12:30 BP 125 / 78; Pulse 97; Resp 28; Pulse Ox 97% ; sv 13:00 BP 95 / 59; Pulse 92; Resp 23; Pulse Ox 95% ; sv 13:30 BP 110 / 66; Pulse 95; Resp 18; Pulse Ox 98% ; sv 14:20 BP 133 / 80; Pulse 99; Resp 14; Pulse Ox 96% on R/A; sv NIH Stroke Scale Scores: 12:20 NIHSS Score: 0 sv 12:23 NIHSS Score: 0 [facility] MDM: 12:23 Patient medically screened. 8 13:14 Data reviewed: vital signs, nurses notes, lab test result(s), EKG, radiologic studies, jr CT scan, plain films. Data interpreted: Pulse oximetry: on room air is 99 %. Interpretation: normal. Counseling: I had a detailed discussion with the patient and/or guardian regarding: the historical points, exam findings, and any diagnostic results supporting the discharge/admit diagnosis, lab results, radiology results, the need for further work-up and treatment in the hospital. ED course: Dr. Sandoval consulted and will see patient . 08/10 12:23 Order name: Troponin (emerg Dept Use Only); Complete Time: 13:05 8 08/10 12:23 Order name: Magnesium; Complete Time: 13:05 8 08/10 12:23 Order name: Basic Metabolic Panel; Complete Time: 13:05 8 08/10 12:23 Order name: CBC with Diff; Complete Time: 13:05 8 08/10 12:23 Order name: Protime (+inr); Complete Time: 12:56 8 08/10 12:23 Order name: Ptt, Activated; Complete Time: 12:56 8 08/10 12:23 Order name: CT Stroke Brain w/o Contrast; Complete Time: 12:40 8 08/10 12:23 Order name: Stroke CXR 1 View; Complete Time: 13:05 8 08/10 12:23 Order name: EKG; Complete Time: 12:24 [facility] 08/10 12:36 Order name: Glucose, Ancillary Testing; Complete Time: 12:40 EDME 08/10 13:04 Order name: Manual Differential; Complete Time: 13:05 EDMS 08/10 12:23 Order name: Accucheck; Complete Time: 12: [facility] 08/10 12:23 Order name: Cardiac monitoring; Complete Time: 12: [facility] 08/10 12:23 Order name: EKG - Nurse/Tech; Complete Time: 12:08/10 12:23 Order name: IV Saline Lock; Complete Time: 12: 08/10 12:23 Order name: Labs collected and sent; Complete Time: 12:08/10 12:23 Order name: NPO; Complete Time: 12:08/10 12:23 Order name: O2 Per Protocol; Complete Time: 12: [facility] 08/10 12:23 Order name: O2 Sat Monitoring; Complete Time: 12: [facility] 08/10 12:23 Order name: Stroke Swallow Screen; Complete Time: 13:51 [facility] 08/10 13:41 Order name: CONS Physician Consult EDMS Administered Medications: 13:20 Drug: foLIC Acid 1 mg Route: IVPB; Site: left forearm; sv 13:20 Drug: PlaVIX 75 mg Route: PO; sv 13:30 CANCELLED (Pt took 1 81 mg tab this morning, ok by Tomas VERDUZCO not to give this dose): sv Aspirin 81 mg PO once Disposition: 16:07 Co-signature as Attending Physician, Ward Matthews MD. rn Disposition: 08/10/19 13:15 Hospitalization ordered by Je Juares for Observation. Preliminary diagnosis is Transient cerebral ischemic attack, unspecified. - Bed requested for Telemetry/MedSurg (observation). - Status is Observation. sv - Condition is Stable. - Problem is new. - Symptoms have improved. UTI on Admission? No NIH Stroke Scale - NIH Stroke Score Date: 08/10/2019 Time: 12:20 Total Score = 0 1a. Level of Consciousness (LOC) - 0(Alert) 1b. Level of Consciousness (LOC) (Year \T\ Age) - 0(Both) 1c. LOC Commands (Open \T\ Closes Eyes/Audit Mgr) - 0(Both) 2. Best Gaze (Lateral Gaze Paresis) - 0(Normal) 3. Visual Field Loss - 0(No visual loss) 4. Facial Palsy - 0(Normal) 5a. Left Arm: Motor (10-second hold) - 0(No drift) 5b. Right Arm: Motor (10-second hold) - 0(No drift) 6a. Left Leg: Motor (5-second hold - always test supine) - 0(No drift) 6b. Right Leg: Motor (5-second hold - always test supine) - 0(No drift) 7. Limb Ataxia (finger/nose \T\ heel/person - test with eyes open) - 0(Absent) 8. Sensory Loss (pinprick arms/legs/face) - 0(Normal) 9. Best Language: Aphasia (description/naming/reading) - 0(No aphasia) 10. Dysarthria (speech clarity - read or repeat words) - 0(Normal) 11. Extinction and Inattention (visual/tactile/auditory/spatial/personal) - 0(No abnormality) Initials: NIH Stroke Scale - NIH Stroke Score Date: 08/10/2019 Time: 12:23 Total Score = 0 1a. Level of Consciousness (LOC) - 0(Alert) 1b. Level of Consciousness (LOC) (Year \T\ Age) - 0(Both) 1c. LOC Commands (Open \T\ Closes Eyes/Audit Mgr) - 0(Both) 2. Best Gaze (Lateral Gaze Paresis) - 0(Normal) 3. Visual Field Loss - 0(No visual loss) 4. Facial Palsy - 0(Normal) 5a. Left Arm: Motor (10-second hold) - 0(No drift) 5b. Right Arm: Motor (10-second hold) - 0(No drift) 6a. Left Leg: Motor (5-second hold - always test supine) - 0(No drift) 6b. Right Leg: Motor (5-second hold - always test supine) - 0(No drift) 7. Limb Ataxia (finger/nose \T\ heel/person - test with eyes open) - 0(Absent) 8. Sensory Loss (pinprick arms/legs/face) - 0(Normal) 9. Best Language: Aphasia (description/naming/reading) - 0(No aphasia) 10. Dysarthria (speech clarity - read or repeat words) - 0(Normal) 11. Extinction and Inattention (visual/tactile/auditory/spatial/personal) - 0(No abnormality) Initials: jr8 Signatures: Dispatcher [employer] Arabella Dey RN RN Ward Matthews MD MD rn Smirch, Shelby, RN RN Tomas Vargas PA PA jr8 Laura Martinez Corrections: (The following items were deleted from the chart) 13:30 13:08 Aspirin 81 mg PO once ordered. jr8 sv 13:30 13:30 Aspirin 81 mg PO once ordered. sv sv 13:49 13:15 Hospitalization Ordered by Je Juares MD for Observation. Preliminary eb diagnosis is Transient cerebral ischemic attack, unspecified. Bed requested for Telemetry/MedSurg (observation). Status is Observation. Condition is Stable. Problem is new. Symptoms have improved. UTI on Admission? No. jr8 14:55 13:49 08/10/2019 13:15 Hospitalization Ordered by Je Juares MD for sv Observation. Preliminary diagnosis is Transient cerebral ischemic attack, unspecified. Bed requested for Telemetry/MedSurg (observation). Status is Observation. Condition is Stable. Problem is new. Symptoms have improved. UTI on Admission? No. eb
--- NOTE | 2019-08-10 14:12 | EKG ---
Test Date: 2019-08-10 Test Time: 12:25:59 Adult Nurse Practitioner: AFSHIN MEASUREMENT RESULTS: Intervals: Rate: 92 CT: 186 QRSD: 86 QT: 360 QTc: 445 [employer]: P: 0 CT: 186 QRS: 12 T: 75 INTERPRETIVE STATEMENTS: Normal sinus rhythm Nonspecific ST abnormality Abnormal ECG Compared to ECG 08/07/2019 11:18:37 No significant changes Electronically Signed On 08-10-19 14:11:34 COMPUTER GAME DESIGNER by Rohan Stephens
[2019-08-10] MEDS: NA CHLORIDE 0.9% 1,000 ML IV SCH (14:59)
[2019-08-10 16:43] VITALS: BMI 32.8
[2019-08-10] MEDS ORDERED: ALPRAZOLAM 0.5 MG TABLET PO ONE (19:00)
--- NOTE | 2019-08-10 22:29 | RAD REPORT ---
EXAM DESCRIPTION: MRI - Brain W/Wo Cont - 08/10/2019 8:32 pm CLINICAL HISTORY: tia COMPARISON: August 10, [address] TECHNIQUE: Axial, sagittal, and coronal magnetic images of the brain were obtained. 20 cc MultiHance administered intravenously FINDINGS: Mioderate signal within periventricular, deep and subcortical white matter probably ischem ic changes secondary to small vessel disease The ventricles are normal in caliber. Diffusion-weighted/ ADC mapping sequences do not demonstrate evidence of an acute infarction. No abnormal enhancement within the brain is seen. An extra-axial fluid collection is not noted. Fluid within the sinuses/mastoids is not seen IMPRESSION: No acute abnormality displayed
--- NOTE | 2019-08-10 22:32 | RAD REPORT ---
EXAM DESCRIPTION: MRI - MRA Head Wo Cont - 08/10/2019 8:32 pm CLINICAL HISTORY: TIA COMPARISON: none TECHNIQUE: Magnetic resonance angiogram was performed. 3D MIPS reconstruction performed FINDINGS: The anterior cerebral, middle cerebral, posterior cerebral, distal internal carotid and ba silar arteries do not demonstrate a significant stenosis. An aneurysm is not displayed. origin of right posterior cerebral artery is present IMPRESSION: No significant abnormalities displayed
--- NOTE | 2019-08-10 22:39 | RAD REPORT ---
EXAM DESCRIPTION: MRI - MRA Neck W/Wo Cont - 08/10/2019 8:32 pm CLINICAL HISTORY: TIA COMPARISON: None. TECHNIQUE: Magnetic resonance angiogram of the neck was performed. 20 cc MultiHance was administered intravenously. 3D MIPS reconstruction performed FINDINGS: Mild plaque is present within the right and left common carotid arteries Moderate plaque is present within the proximal left external carotid artery. Moderate plaque is present within the left carotid bulb. Severe plaque is present within the right carotid bulb. The vertebral arteries are codominant without visualization of an abnormality. IMPRESSION: Moderate stenosis left carotid bulb Severe stenosis right carotid bulb NASCET criteria used. Mild 0-49% stenosis Moderate 50-69% stenosis Severe 70-99% stenosis
--- NOTE | 2019-08-10 22:43 | RAD REPORT ---
EXAM DESCRIPTION: USCarotid Artery Dwgrmpeev23/21/2019 9:55 pm CLINICAL HISTORY: TIA COMPARISON: MRA neck August 10, 2019 FINDINGS: The velocity of the right internal carotid artery equals 110 cm/sec. The right ICA/CCA rat io 1.1 The velocity of the left internal carotid artery equals 198cm/sec. The left ICA/CCA ratio 1.7 Severe plaque is present within the right carotid bulb Moderate plaque is present within left carotid bulb. . The vertebral arteries demonstrate antegrade flow IMPRESSION: Combining the MRA neck and this ultrasound the patient appears to have severe plaque wit hin the right carotid bulb resulting in an approximately 75% stenosis Moderate plaque within the left carotid bulb NASCET criteria used. Mild 0-49% stenosis Moderate 50-69% stenosis Severe 70-99% stenosis
[2019-08-10 23:33] VITALS: O2SAT 100
[2019-08-11] MEDS: NA CHLORIDE 0.9% 1,000 ML IV SCH (04:19)
[2019-08-11 05:22] LABS: Urine Appearance CLEAR; Urine Bilirubin NEGATIVE (NEG); Urine Blood NEGATIVE (NEG); Urine Color YELLOW; Urine Glucose NEGATIVE (NEG); Urine Protein NEGATIVE (NEG); Urine Urobilinogen 0.2 mg/dL (0.2-1.0); Urine pH 6.5 (5.0-7.0)
[2019-08-11 05:29] LABS: Urine Microscopic Reflex NO UMIC
[2019-08-11 06:08] LABS: Absolute Lymphocytes (CBC) 2.1 K/uL (0.7-4.9); Basophils % 0.9 % (0-1.3); Hematocrit 35.2 % (36.0-45.0); Lymphocytes % 22.2 % (15.3-44.8); MPV 7.7 fL (7.6-11.3); RBC Red Blood Cell Count 3.85 M/uL (3.86-4.86)
[2019-08-11 06:23] LABS: BUN Blood Urea Nitrogen 9 mg/dL (7-18); Bicarbonate 27 mmol/L (21-32); Glucose Level 95 mg/dL (74-106); Potassium 3.5 mmol/L (3.5-5.1); Sodium Level 138 mmol/L (136-145)
[2019-08-11] MEDS ORDERED: ASPIRIN EC 81 MG TAB PO SCH (09:00)
[2019-08-11] MEDS ORDERED: CLOPIDOGREL 75 MG TABLET PO SCH (09:00)
[2019-08-11] MEDS ORDERED: FOLIC ACID 1 MG in NA CHLORIDE 0.9% 50 ML IV SCH (09:00)
[2019-08-11] MEDS ORDERED: FOLIC ACID 5 MG/ML VIAL IVP SCH (09:00)
--- NOTE | 2019-08-11 10:57 | P.CNS ---
Date of Consult: 08/11/19 Chief Complaint: Chest pain History of Present Illness: Patient is a pleasant 74-year-old lady who is a former smoker over a half a pack a day admitted with left-sided chest pain for the past 2 weeks denies any fever chills was found to have a very large left-sided lung mass denies any fever chills cough sputum hemoptysis patient admitted with slurred speech there is no evidence of stroke Allergies No Known Allergies Allergy (Verified 08/10/19 14:53) Home Medications: Amlodipine [Norvasc*] 1 tab PO DAILY 08/10/19 Codeine/APAP [Tylenol #3*] 1 tab PO Q6H PRN 08/10/19 Pravastatin Sodium [Pravachol] 1 tab PO BEDTIME 08/10/19 Ropinirole HCl [Requip*] 1 tab PO BEDTIME 08/10/19 carvediloL [Carvedilol] 1 tab PO BID 08/10/19 - Past Medical/Surgical History Diabetic: No -: Hypertension -: Restless leg syndrome - Social History Smoking Status: Current every day smoker Alcohol use: Yes CD- Drugs: No Caffeine use: Yes Place of Residence: Home Review of Systems 10-point ROS is otherwise unremarkable Physical Examination Temp Pulse Resp BP Pulse Ox 97.4 F 90 16 124/70 95 08/11/19 08:00 08/11/19 08:00 08/11/19 08:00 08/11/19 08:00 08/11/19 08:00 General: Alert, In no apparent distress, Oriented x3 Respiratory: Clear to auscultation bilaterally, Diminished, Friction rub Cardiovascular: Regular rate/rhythm, Normal S1 S2 Gastrointestinal: Normal bowel sounds, Soft and benign Laboratory Data (last 24 hrs) 08/10/19 12:25: PT 10.4, INR 0.88, APTT 32.0 08/10/19 12:25: WBC 17.4 H D, Hgb 14.6, Hct 42.8, Plt Count 394 08/10/19 12:25: Sodium 134 L, Potassium 4.1, BUN 11, Creatinine 0.99, Glucose 119 H, Magnesium 2.4 - Problems (1) Lung mass Current Visit: Yes Status: Acute Plan: Patient is 74 years of age admitted with left-sided chest pain she has a very large lung mass abutting the chest wall no evidence of mediastinal adenopathy MRI of the brain is negative. Patient is a heavy smoker denies any prior history of COPD or any heart problems patient can be discharged home will see her as a follow up arrange for a biopsy most likely a fine-needle biopsy outpatient lung function test and a PET scan labs reviewed consider discharge (2) TIA (transient ischemic attack) Current Visit: Yes Status: Acute Plan: Possible TIAs she has significant carotid artery stenosis patient to continue taking aspirin
[2019-08-11 11:29] LABS: ALT/SGPT 21 U/L (12-78); AST/SGOT 18 U/L (15-37); Alkaline Phosphatase 55 U/L (45-117); Bilirubin Direct 0.1 mg/dL (0-0.2); Bilirubin Total 0.4 mg/dL (0.2-1.0); Protein, Total 5.8 g/dL (6.4-8.2)
[2019-08-11 12:53] VITALS: BP 132/77; TEMP 98.1
--- NOTE | 2019-08-11 13:08 | CON ---
Reason For Consultation: Consultation called by Dr. Juares because of transient ischemic attack. History Of Present Illness: Ms. Mata is a 74-year-old right-handed patient with dyslipi demia and reportedly hypertension, who comes into [facility] after about a 30-minute episode of TIA like symptoms. Yesterday, , she was speaking to her son on the phone around 11 a.m. when he reportedly noted she has slurred speech and could not get her words right. She was not sure what was going on. She did not think anything was abnormal and she subsequently was seen by her son as cherry simons rushed over. At that point, she began to improve her slurred speech and confusion. The emergency medical services were summoned. By the time they arrived, she was back to normal, moving the arms an d legs along with her face normally and her speech was normal. She came into [facility] mayra und 12:16. The event occurred at 11 a.m. That was an hour and 16 minutes later, but the symptoms be ken to resolve. Her brain CT scan showed chronic ischemic change, but no acute ischemic or hemorrhag ic change. Subsequent brain MRI ruled out the presence of acute stroke. There was moderate perivent ricular and deep subcortical white matter small vessel ischemic disease. The patient's brain MRA was unremarkable. However, her neck magnetic resonance angiogram identified 75% blockage in the right c arotid bulb region and that was consistent with the carotid artery ultrasound study, which also ident ified high-grade stenosis of around 75% in the right carotid bulb. The patient said she was taking a n aspirin on a daily basis while this event occurred and she had fluctuations in blood pressures, whe re at times blood pressures were elevated and then subsequently blood pressures would be low. In the event, her blood pressure on admission at one point was down to 95/59. Currently, she does have nor mal blood pressure of 124/70. Since hospitalization, she has had no additional events. Past Medical History: As indicated. Medical history of hypertension, dyslipidemia. Allergies: NO KNOWN DRUG ALLERGIES. Medications: Aspirin 81 mg daily, pravastatin at night, and Coreg. Family History: Noncontributory. Social History: The patient smokes 1 pack cigarettes daily. Denies alcohol use. Review of Systems: No recent chills, fevers. No nausea, vomiting, myalgias, arthralgias, headache, weight change, rash, psychiatric complaints, gastrointestinal or genitourinary complaints. Physical Examination: Vital Signs: Blood pressure 124/70, pulse 90, respiratory rate 16, temperature 97.4. Oxygen saturat ion 100% on room air. Weight 197 pounds, height 5 feet 5 inches, BMI 32.8. General: Ms. Mata is resting in bed. She is in no acute distress. She is normocephalic, atrauma tic. Her sclerae are anicteric. Oropharynx is pink and moist. Neck: Supple. Chest: Clear. Heart: Regular. Extremities: Show no edema, cyanosis, or clubbing. Neurological: She is alert and oriented to situation, place, and person. Follows commands appropria tely. She has no expressive or receptive aphasias. Cranial nerves 2 through 12 are intact by examin ation. Motor examination upper and lower extremities 5/5 proximally and distally. Sensory examinati on intact in the upper and lower extremities. Coordination intact in upper and lower extremities. R eflexes 2+ in the upper extremities at the biceps, triceps, patellae; 1 at the heels. Gait, she has good stance, right arm swing. Laboratory Studies: Complete blood count with differential while on admission was around 17.4 white blood cell count with 86% neutrophils yesterday, today it is 9.6 WBCs with neutrophils 62.4%, hemoglo bin 12.1, hematocrit 35.2. Coagulation panel is normal. INR 0.88. Chemistries show normal electrol yte panel. Normal liver function studies. HDL cholesterol is 88, LDL cholesterol is 40, total alia sterol 138. The cholesterol to HDL ratio is 1.57. Albumin is slightly low at 3. Total protein slig htly low at 5.8. Urinalysis is normal. Her electrocardiogram shows normal sinus rhythm with nonspec ific ST abnormalities, unchanged over 3 days. Assessment: Ms. Mata is a 74-year-old patient with a transient ischemic attack of slurred speech and mild expressive aphasia while taking aspirin and with a history of hypertension and dyslipidemia that is well controlled and significant right carotid bulb stenosis of around 75%. Plan: 1.Add Plavix to the aspirin, that is 81 mg aspirin, 75 mg Plavix daily. 2.The patient may have angioplasty and stent procedure with Dr. Stephens as Dr. Juares did refer the patient to Dr. Stephens for potential angioplasty of the carotid bulb stenosis. 3.Continue with management of hypertension and dyslipidemia. 4.Further, the patient does have class 1 obesity and would benefit from weight loss program includin g regular exercise for 30 minutes daily. 5.She was instructed on hydrating with 8 glasses of water daily and she is instructed to follow up [facility] clinic 1 month after discharge. LILIANA/JEANIE Voice ID: [id number] Report ID: [id number]
--- NOTE | 2019-08-12 02:46 | SS ---
Date of Discharge: 08/11/2019 History Of Present Illness: A 74-year-old female with history of hypertension, hyperlipidemia, prese nted to the emergency room with a complaint that she was at home, she has not been feeling well for t he past few weeks; however, the day of her presentation to the emergency room, she felt like she is t oo tired to even speak and the transient ischemic attack was considered as her admission for [facility]. The patient herself at the time of interview, she was speaking well and had no focal symptoms. The patient denies any nausea or vomiting. The patient gives history that she has been having chest discomfort continuous with no relief for the past many weeks. She did not describe it as pain; bingham tuyet, the patient has been having also gradual increase in shortness of breath. The patient voiced no other complaints. Review of Systems: Respiratory: As above. Neurological: As above. Cardiovascular: No palpitations and no other complaints. Gastrointestinal: No complaints. Genitourinary: No complaints. Skeletomuscular: No complaints. Neurological: As above. Past Medical History: 1.Hypertension. 2.Hyperlipidemia. 3.Restless legs syndrome. 4.The patient is a heavy smoker with COPD. Social History: As mentioned, the patient is a heavy smoker for many years. No alcohol or IV drug a buse history. Family History: Noncontributing. Medications: Include, amlodipine 5 mg p.o. daily, carvedilol 12.5 mg p.o. b.i.d., pravastatin 20 mg p.o. at bedtime, and Requip 0.25 mg p.o. at bedtime. Allergies: NO KNOWN DRUG ALLERGIES. Physical Examination: Vital Signs: Blood pressure 124/70, pulse 90, temperature 97.4. Heart: Regular rate and rhythm. Chest: Clear to auscultation. Abdomen: Soft, nontender. No hepatosplenomegaly. Bowel sounds are normoactive. Extremities: No edema. No cyanosis. Peripheral pulses are felt. Neurological: Alert and oriented, grossly intact. The patient had no focal. Her motor power is 5/5 . Sensory is intact. Cranial nerves 2 through 12 intact. Negative Babinski. Diagnostic Data: EKG showed normal sinus rhythm with nonspecific ST abnormality. No significant aaron nges from the previous one. Chest x-ray showed mid left lung mass, the mass is about 6 cm in the lef t lung field. Malignancy is considered. Laboratory Data: Head CT; no acute pathology. No bleeding. Brain MRI and MRA showed stenosis of th e right carotid bulb with an ultrasound of the carotids about 75% stenosis for the right carotid bulb . CBC noted and chemistry noted. Troponin less than 0.02. Lipid profile noted with an HDL of 88 an d LDL of 40. Urinalysis is noted. Hospital Course: 1.The patient was admitted to the hospital for observation. Neuro checks as per protocol. The prosper ent remained stable neurologically and clinically she was doing well. I asked Dr. Tavera to see th e patient for her lung mass and he will do a biopsy with a fine-needle likely. I will arrange for at as an outpatient. 2.Possible TIA. Dr. Sandoval will see the patient, and if it is okay with him, we will go ahead and discharge the patient. He can follow her up as an outpatient. I will also see the patient on y and we will refer her also to Cardiology for further workup and management of her right carotid anshu nosis. Meanwhile, the patient to continue current medicines. Workup by Dr. Sandoval appreciated. Look orders for detail. MFS/MODL Voice ID: [id number] Report ID: [id number]
== END 2019-08-11 12:55 | disposition home or self-care (01) ==
LOC: ER 12:08 → ERHOLD 13:39 → 2ND 14:02
PROVIDERS: ADMIT Internal Medicine; ATTEND Internal Medicine
DX: G45.9 Transient cerebral ischemic attack, unspecified (principal); R47.01 Aphasia; R91.8 Other nonspecific abnormal finding of lung field; E78.5 Hyperlipidemia, unspecified; I10 Essential (primary) hypertension; Z87.891 Personal history of nicotine dependence; Z79.82 Long term (current) use of aspirin
CPT/HCPCS: 93005; 85025 ×2; 80048 ×2; 36415; 83735; 85610; 80061; 82947; 80076; 85730; 81003; 84484; 70450; 71045; 93880; 70553; 70544; 70549; 96374; 99285; A9577; J7030; G0378 ×3

== ENCOUNTER 2019-10-12 09:25 | Inpatient (IN) | payer OTHER ==
[2019-10-12 09:57] LABS: MPV 7.2 fL (7.6-11.3)
[2019-10-12 10:05] LABS: Protime INR 0.89
[2019-10-12] MEDS ORDERED: Ringers Lactate 1,000 ML IV ONE (10:12)
[2019-10-12 10:49] VITALS: BMI 29.0
[2019-10-12] MEDS ORDERED: MIDAZOLAM HCL 2 MG/2 ML INJ ONE (10:57)
[2019-10-12] MEDS ORDERED: FENTANYL CITR 100 MCG/2 ML ONE (10:57)
[2019-10-12] MEDS ORDERED: FLUMAZENIL 0.1 MG/ML (5 mL VIAL) IV ONE (10:58)
[2019-10-12] MEDS ORDERED: NALOXONE 0.4 MG/ML VIAL ONE (10:58)
--- NOTE | 2019-10-12 13:03 | RAD REPORT ---
EXAM DESCRIPTION: RAD - Chest Single View - 10/12/2019 12:51 pm CLINICAL HISTORY: POST BXcommon pneumothorax COMPARISON: Lung Biopsy Perc w/CT dated 10/12/2019None. TECHNIQUE: AP portable chest image was obtained 10/12/2019 12:51 pm . FINDINGS: Approximately 20- 25% left pneumothorax is present. Tip of the left upper lobe is at the f ourth inner costal space. No pleural fluid collection. No parenchymal hemorrhage around the mass. Hea rt and vasculature are normal. No measurable pleural effusion and no pneumothorax. No acute bony abno rmality seen. No acute aortic findings suspected. Findings telephoned to Dr. Tavera at 12:50 p.m. IMPRESSION: Approximately 20-25% left pneumothorax.
--- NOTE | 2019-10-12 13:34 | RAD REPORT ---
EXAM DESCRIPTION: CT - Lung Biopsy Perc w/CT - 10/12/2019 12:49 pm CLINICAL HISTORY: LT LUNG MASS COMPARISON: Ct Skull/Thigh dated 09/07/2019; Thorax W/ Con dated 08/07/2019 TECHNIQUE: Patient presents for CT-guided lung biopsy of a mid to lower left lung field mass. Prior imaging studies were reviewed. Patient is off aspirin therapy for 7 days. Patient has no known drug a llergies. The procedure, risks and alternatives were discussed with the patient in detail. After answering all questions, both oral and written consent were obtained. IV access and physiologic monitors were in place. Patient was placed on the CT table and preliminary images were obtained. Left anterolateral access site was selected. The patient was pre-medicated with worse at 1.0 milligrams IV and fentanyl 100 micrograms IV. Skin was prepped and draped in the usual sterile fashion. Skin and deeper tissues were anesthetized with 1% lidocaine. Under CT guidance an introducer needle was advanced to the chest wall. Patient had some difficulty ma intaining positioning for the examination. Repositioning limited optimal access site. To the introduc er was advanced across the pleura into the lateral margin of the lesion. On placement of the needle t ip, a small pneumothorax developed. Attempts to advance the needle and place the 18 gauge biopsy need le were limited. Three biopsies were obtained along the inferior margin of the mass. However, these w ere not definitive for being within the substance of the mass. Small fragments of tissue were obtaine d and retained for cytology/ histology evaluation. Attempts to reposition the needle further displace the pleura and mass. Additional attempts to access the mass were felt to be most likely unsuccessful and likely to further contribute to the pneumothorax. Needle was withdrawn and sterile bandage placed to the puncture site. Post biopsy imaging showed appr oximately 20-25% left pneumothorax. No parenchymal hemorrhage was seen. The patient's vital signs were stable throughout the procedure. Patient was transferred to same-day surgery for post biopsy care. The referring physician was contact ed and it was determined to admit the patient to the hospital for monitoring of the pneumothorax. Adm [facility] service was contacted as well. Conscious sedation time was 1 hour. IMPRESSION: CT-guided biopsy was performed as detailed. Exam was limited due to immediate developmen t of a pneumothorax upon needle placement. Small fragments of tissue were obtained but are questionable as adequate sampling of the mass. Approximately 20- 25% pneumothorax post biopsy. Patient was returned today surgery with plans for adm ission for monitoring of the pneumothorax.
[2019-10-12] MEDS ORDERED: carvediloL 6.25 MG TAB PO ONE (13:45)
--- NOTE | 2019-10-12 14:29 | RAD REPORT ---
EXAM DESCRIPTION: RAD - Chest Single View - 10/12/2019 2:04 pm CLINICAL HISTORY: pneumothorax COMPARISON: Chest Single View dated 10/12/2019 TECHNIQUE: AP portable chest image was obtained 10/12/2019 2:04 pmin expiration . FINDINGS: Expiration film shows left pneumothorax stable from the prior examination. Tip of the left upper lobe superimposed on the fourth intercostal space. Heart and vasculature are normal. IMPRESSION: Expiration chest film shows left pneumothorax not substantially different. Tip of the le ft upper lobe remains superimposed on the fourth intercostal space. The left-side pneumothorax may be slightly better than the earlier examination. The comparison immedi ate post biopsy chest film was not done in expiration.
[2019-10-12] MEDS ORDERED: D5 0.9 NS 1,000 ML IV SCH ×2 (16:00→18:00)
[2019-10-12 17:29] LABS: Absolute Lymphocytes (CBC) 2.3 K/uL (0.7-4.9); Basophils % 0.6 % (0-1.3); Hematocrit 38.2 % (36.0-45.0); Lymphocytes % 17.1 % (15.3-44.8); MPV 7.1 fL (7.6-11.3); RBC Red Blood Cell Count 4.13 M/uL (3.86-4.86)
[2019-10-12 17:44] LABS: BUN Blood Urea Nitrogen 9 mg/dL (7-18); Bicarbonate 29 mmol/L (21-32); Glucose Level 114 mg/dL (74-106); Potassium 4.1 mmol/L (3.5-5.1); Sodium Level 133 mmol/L (136-145)
[2019-10-12] MEDS: carvediloL 6.25 MG TAB PO SCH (21:48)
[2019-10-12] MEDS: ROPINIROLE HCL 0.25 MG TAB PO SCH (21:48)
[2019-10-12] MEDS: ATORVASTATIN 10 MG TAB PO SCH (21:49)
[2019-10-13] MEDS ORDERED: AMLODIPINE 10 MG TAB PO SCH (09:00)
[2019-10-13] MEDS: carvediloL 6.25 MG TAB PO SCH ×2 (09:00→20:34)
--- NOTE | 2019-10-13 09:06 | RAD REPORT ---
EXAM DESCRIPTION: RAD - Chest Pa And Lat (2 Views) - 10/13/2019 5:39 am CLINICAL HISTORY: pneumothorax Chest pain. COMPARISON: Chest Single View dated 10/12/2019; Chest Single View dated 10/12/2019; Chest Single View dated 08/10/2019; Chest Single View dated 08/07/2019 FINDINGS: Large left mid lung mass is again noted. Left-sided pneumothorax is again seen, appearing mildly decreased in size since prior study, although prior exam was performed during expiration. Over all, pneumothorax is estimated to represent 15% of lung volume. The heart is mildly enlarged. No disp laced fractures. IMPRESSION: Left apical pneumothorax as detailed.
[2019-10-13] MEDS ORDERED: NA CHLORIDE 0.9% 1,000 ML ONE (10:00)
[2019-10-13] MEDS ORDERED: NA CHLORIDE 0.9% 500 ML IV ONE ×4 (10:02→11:58)
[2019-10-13] MEDS ORDERED: NA CHLORIDE 0.9% 500 ML ONE (10:13)
--- NOTE | 2019-10-13 10:34 | P.CNS ---
Date of Consult: 10/13/19 Reason for Consult: Pneumothorax after procedure Chief Complaint: Pneumothorax History of Present Illness: Patient is 74 years of age developed a pneumothorax after the procedure and was admitted here for observation she is currently doing well no complaints of blood pressure is low as been no change in her medications no narcotics given hemothorax is not progressed patient denies any shortness of breath or chest pain Allergies No Known Allergies Allergy (Verified 08/10/19 14:53) Home Medications: Pravastatin Sodium [Pravachol] 1 tab PO BEDTIME 08/10/19 Ropinirole HCl [Requip*] 1 tab PO BEDTIME PRN 08/10/19 Aspirin 81 mg PO DAILY #30 tab.chew 08/11/19 Amlodipine [Norvasc*] 1 tab PO DAILY 10/12/19 carvediloL [Carvedilol] 1 tab PO BID 10/12/19 - Past Medical/Surgical History Diabetic: No -: Hypertension -: Restless leg syndrome -: Left-sided lung mass nondiagnostic FNA - Social History Smoking Status: Current every day smoker Alcohol use: Yes CD- Drugs: No Caffeine use: Yes Place of Residence: Home Review of Systems 10-point ROS is otherwise unremarkable Physical Examination Temp Pulse Resp BP Pulse Ox 98.3 F 81 16 60/40 L 98 10/13/19 08:00 10/13/19 09:00 10/13/19 08:00 10/13/19 09:27 10/13/19 08:00 General: Alert, Oriented x3 Neck: Supple Respiratory: Clear to auscultation bilaterally Cardiovascular: No edema, Regular rate/rhythm, Normal S1 S2 Capillary refill: >2 Seconds Gastrointestinal: Soft and benign Laboratory Data (last 24 hrs) 10/12/19 17:15: Sodium 133 L, Potassium 4.1, BUN 9, Creatinine 0.56, Glucose 114 H 10/12/19 17:15: WBC 13.4 H, Hgb 12.9, Hct 38.2, Plt Count 421 H - Problems (1) Lung mass Current Visit: No Status: Acute Plan: Patient is 74 years of age admitted for observation after pneumothorax doing much better pneumothorax is not progress blood pressure is low or continue to monitor will give her a fluid bolus been no change in her medications patient is on amlodipine and Coreg PET scan did not show any evidence of metastatic disease MRI of the brain was also negative once the blood pressure has improved possibly discharged today for a blood pressure medications I have informed the patient about the nondiagnostic biopsy due to the pneumothorax will really x- ray regaining my office this week plan for bronchoscopy the following week of discuss with the patient the risks and benefit again which include bleeding infection and lung collapse
--- NOTE | 2019-10-13 10:42 | P.PN ---
Subjective Date of Service: 10/13/19 Chief Complaint: Pneumothorax Subjective: Improving (Patient remains asymptomatic) Physical Examination - Vital Signs Temperature: 98.3 F Blood Pressure: 60/40 Pulse: 81 Respirations: 16 Pulse Ox (%): 98 - Physical Exam General: Alert, In no apparent distress, Cooperative Respiratory: Clear to auscultation bilaterally, Normal air movement - Studies Laboratory Data (last 24 hrs) 10/12/19 17:15: Sodium 133 L, Potassium 4.1, BUN 9, Creatinine 0.56, Glucose 114 H 10/12/19 17:15: WBC 13.4 H, Hgb 12.9, Hct 38.2, Plt Count 421 H Assessment And Plan - Current Problems (Diagnosis) (1) Pneumothorax after biopsy Current Visit: Yes Status: Acute Plan: Pneumothorax continues to improve on imaging patient remains asymptomatic, remove oxygen and ambulate - no surgical intervention, continue plan per Dr. Holley
[2019-10-13] MEDS: NA CHLORIDE 0.9% 1,000 ML IV SCH (10:50)
--- NOTE | 2019-10-13 14:46 | CON ---
Date of Consultation: 10/13/2019 History Of Present Illness: The patient is a 74-year-old white female who presents after developing a small pneumothorax after attempted left pulmonary mass biopsy. She had no complaints, but a pneumo thorax is appreciated immediately. She was given oxygen supplementally and had no symptoms throughou t the procedure and postprocedurally. Past Medical History: Significant for hypertension, restless legs syndrome, left lung mass. Past Surgical History: Negative. Home Medications: Include Pravachol, Requip, aspirin, Norvasc, carvedilol. Social History: She smokes every day. She drinks alcohol recreationally. She denies any recreation al drug use. Physical Examination: Vital Signs: At time of my examination, blood pressure 108/64, pulse is 99, respiratory rate 18, tem perature 97.8. General: She is awake, alert, and oriented. Psychiatric: Appropriate. Conversive. HEENT: She is normocephalic. Sclerae anicteric. Mucous members are moist. Oropharynx clear. Neck: Supple. No JVD. Chest: Normal expansion and excursion. Equal breath sounds bilaterally. No wheezing, rhonchi, or r ales appreciated at this time. She has good inspiratory effort. Remainder of the chest examination is unremarkable. Laboratory Data: Reveals a white blood count of 13.4, hemoglobin is 12.9, hematocrit of 38.2, platel et count was 421. She had a chest x-ray performed on 10/12 which was officially read as approximately 20% to 25% left p neumothorax present. She had a postprocedural pneumothorax shortly thereafter, which showed left-ilan ed pneumothorax slightly better than earlier examination. The comparison immediately post biopsy cheyanne m was not done on exploration. Assessment And Plan: This is a 74-year-old female who comes in with a likely small pneumothorax. 1.Continue medical management. 2.Place the patient on high-flow oxygen. 3.Serial chest x-rays. If there is improvement in potential resolution of this pneumothorax, no nee d for intervention, however, should her pneumothorax worsen or she becomes symptomatic, I have explai alicia the risks, benefits, and alternatives of placement of a left chest thoracostomy tube, including b ut not limited to bleeding, infection, damage to surrounding tissues, need for further operation and procedures. She agrees to proceed as indicated. I will continue with serial chest x-rays and serial exams and close monitoring of SpO2. FERMÍN/JEANIE Voice ID: [id number] Report ID: [id number]
[2019-10-13] MEDS: ATORVASTATIN 10 MG TAB PO SCH (20:33)
[2019-10-13] MEDS: ROPINIROLE HCL 0.25 MG TAB PO SCH (20:33)
--- NOTE | 2019-10-13 21:06 | HP ---
Date of Admission: 10/13/2019 History Of Present Illness: The patient is a 74-year-old female who was doing lung biopsy for a lung mass in the left upper lung field. The patient has had from the procedure left apical pneumothorax and so we went ahead and admitted the patient for observation from that standpoint. The pneumothorax was mild and by x-ray about 50% of lung volume. The patient at this time denies any chest pain or i ncreased shortness of breath and she voiced no other complaints. Review of Systems: Respiratory: As above. Cardiovascular: No complaints. Genitourinary: No complaints. Skeletomuscular: No complaint. Gastrointestinal: No complaint. Neurological: No complaint. Past Medical History: 1.As above, lung mass on the left side. 2.Hypertension. 3.Hyperlipidemia. 4.Restless legs syndrome. 5.The patient also has COPD, being a heavy smoker. Social History: Patient is a heavy smoker. Denies alcohol or drug abuse history. Family History: Noncontributing. Medications: Include amlodipine 5 mg p.o. daily, carvedilol 12.5 mg p.o. b.i.d., pravastatin 20 mg p .o. daily, and Requip 0.25 mg p.o. at bedtime. Allergies: NO KNOWN DRUG ALLERGIES. Physical Examination: HEART: Regular rate and rhythm. CHEST: Clear to auscultation. ABDOMEN: Soft, nontender. No hepatosplenomegaly. Bowel sounds are normoactive. Extremities: No edema. No cyanosis. Peripheral pulses are felt. Neurological: Alert, oriented, nonfocal. Grossly intact. Laboratory Data: Chest x-ray, left apical pneumothorax, as mentioned 50% estimated. CBC; white cell count 13.4, hemoglobin 12.9, hematocrit 38.2, and platelets 421. PT/INR noted. Chemistry; sodium 1 33, glucose 114. Assessment And Plan: Postprocedural left apical pneumothorax. At this time, patient is requiring no chest tube and her pulse oximetry as above is 90%, put her for observation. However, the patient al so while in the hospital, her blood pressure systolic have dropped to about systolic 60-70, so we gabriel t ahead and put her on IV fluids and we gave her also wide open 2 L of IV fluid and now her systolic blood pressure is above 90 and she is doing well. We will continue monitoring the patient and should patient do well, we will consider discharging her tomorrow. At this time, also her blood pressure m edicines have been held. Look orders for details. FRANSICO/JEANIE Voice ID: [id number]
--- NOTE | 2019-10-13 21:09 | HP ---
Date of Admission: 10/13/2019 Addendum: Also, we have consulted Dr. Tavera, Pulmonary and Dr. Beck, General Surgery, and we w ill follow the recommendation. MFS/MODL Voice ID: [id number]
[2019-10-14] MEDS: NA CHLORIDE 0.9% 1,000 ML IV SCH ×2 (00:41→12:40)
--- NOTE | 2019-10-14 11:52 | RAD REPORT ---
EXAM DESCRIPTION: RAD - Chest Single View - 10/14/2019 11:39 am CLINICAL HISTORY: Pneumothorax COMPARISON: Chest Pa And Lat (2 Views) dated 10/13/2019; Chest Single View dated 10/12/2019; Chest Sin gle View dated 10/12/2019; Chest Single View dated 08/10/2019 FINDINGS: Portable technique limits examination quality. No significant change is seen in the left apical pneumothorax since preceding day's study (10-15% of total lung volume). Left base opacification rounded left lower lung mass again seen. Opacification of the left base appears mildly progressive in may represent atelectasis or infiltrate. The heart is up per limit normal in size. No displaced fractures. IMPRESSION: Stable size of the left apical pneumothorax since yesterday's examination.
--- NOTE | 2019-10-14 12:22 | DS ---
History: A 74-year-old female. Michela Mata was admitted to the hospital because she encountered left apical lung pneumothorax about 15% pressure done a procedure for the biopsy of her lung mass. Past Medical History: As per admit note. Social History: As per admit note. Family History: As per admit note. Medications: As per admit note. Allergies: PER ADMIT NOTE. Physical Examination: As per admit note. Diagnostic Data: As per admit note. Hospital Course: The patient was admitted to the hospital. She did not require a chest tube and ciara firtz also on Dr. Tavera were consulted and followed up the case with us. Her pneumothorax with ser ial x-rays showed it was resolving and improving. During her hospital stay, her blood pressure systo lic was noted to have dropped to about 60 systolic and giving the patient IV fluids. The patient's s ystolic blood pressure stabilized and went up and was above 100. The patient even with her blood pre ssure being low, she was asymptomatic. She was feeling well, so the patient remained stable and with stabilization of her blood pressure and with her improving of her pneumothorax, the patient was stab le to be discharged. We will hold on her home blood pressure medicines for now and we will follow he r up as an outpatient and resume as indicated. Meanwhile, the patient followup with me and to follow up with Dr. Tavera. Look discharge orders for details. MFS/MODL Voice ID: [id number] Report ID: [id number]
[2019-10-14 13:52] VITALS: O2SAT 92
[2019-10-14 15:00] VITALS: BP 118/75; TEMP 97.7
== END 2019-10-14 13:19 | disposition home or self-care (01) | DRG 201 ==
LOC: DS 09:25 → 2ND 13:51 → OBSVTOIN 10-13 18:35
PROVIDERS: ADMIT Internal Medicine; ATTEND Internal Medicine
PROC: 0BBL3ZX Excision of Left Lung, Percutaneous Approach, Diagnostic (ICD-10-PCS; principal; 2019-10-12)
DX: J95.811 Postprocedural pneumothorax (principal); Y84.8 Other medical procedures as the cause of abnormal reaction of the patient, or of later complication, without mention of misadventure at the time of the procedure; Y78.3 Surgical instruments, materials and radiological devices (including sutures) associated with adverse incidents; Y92.238 Other place in hospital as the place of occurrence of the external cause; I10 Essential (primary) hypertension; G25.81 Restless legs syndrome; R91.8 Other nonspecific abnormal finding of lung field; F17.210 Nicotine dependence, cigarettes, uncomplicated
CPT/HCPCS: 32405; 36415; 71045; 71046; 77012; 80048; 85025; 85049; 85610; 85730; 88305; G0378; G0379; J2250; J2310; J3010; J7030; J7040; J7042; J7120

== ENCOUNTER 2019-11-01 07:04 | Day surgery (SDC) | payer OTHER ==
--- OUTSIDE RECORDS SUMMARY | 2019-11-01 07:06 | XMS REPORT ---
:1945 [facility] Address [address] [place] [address] Care Team Providers Name Role Phone Unavailable Unavailable Unavailable Problems This patient has no known problems. Allergies, Adverse Reactions, Alerts This patient has no known allergies or adverse reactions. Medications This patient has no known medications.
[2019-11-01] MEDS ORDERED: LIDOCAINE VISCOUS 2% SOLN 15 ML UDC ONE (07:18)
[2019-11-01] MEDS ORDERED: LIDOCAINE 1% MPF 30 ML VIAL ONE ×2 (07:18→07:46)
[2019-11-01] MEDS ORDERED: Ringers Lactate 1,000 ML IV ONE (07:24)
[2019-11-01] MEDS ORDERED: Phenylephrine HCl 10 MG/ML 1 ML VIAL ONE (07:33)
[2019-11-01] MEDS ORDERED: FENTANYL CITR 100 MCG/2 ML ONE (07:45)
[2019-11-01] MEDS ORDERED: propofoL 200 MG/20 ML VIAL IV ONE (07:45)
--- NOTE | 2019-11-01 08:45 | P.OP ---
Date of Service: 11/01/19 (Bronchoscopy with left lower lobe biopsies) Findings and Operative Technique patient is 74 years of patient of age evaluated my me for a large left lower lobe lung mass previously nondiagnostic FNA complicated by a pneumothorax After obtaining informed consent from the patient she was premedicated by anesthesia finding normal vocal cords normal trachea normal right and left- sided bronchial anatomy no endobronchial lesions visible the mucosa looked perfectly normal The triple biopsies were obtained from the left lower lobe lung mass this is a wire brushing and BAL patient did not experience anion hemodynamic abnormalities or hypoxemia
--- NOTE | 2019-11-01 10:36 | RAD REPORT ---
EXAM DESCRIPTION: RAD - Chest Single View - 11/01/2019 10:06 am CLINICAL HISTORY: POST BRONSCHOSCOPY COMPARISON: Chest Single View dated 10/14/2019 TECHNIQUE: AP portable chest image was obtained 11/01/2019 10:06 am . FINDINGS: No post bronchoscopy pneumothorax identified. No measurable pulmonary hemorrhage seen. The left lung mass is again noted. Left costophrenic angle blunting has not changed. No new right lung f ield finding. IMPRESSION: No post bronchoscopy pneumothorax identified.
[2019-11-01 10:47] VITALS: BP 101/78; TEMP 97.5; O2SAT 96
--- NOTE | 2019-11-01 11:42 | RAD REPORT ---
EXAM DESCRIPTION: RAD - FLUORO-GUIDE FOR BRONCH UPT1HR - 11/01/2019 9:09 am CLINICAL HISTORY: BRONCH, fluoroscopic guidance COMPARISON: No comparisons FINDINGS: There were 14 portable C-arm views submitted from a fluoroscopic guided bronchoscopy. No s uspicious or unexpected finding. Fluoro time was 6.8 minutes.
== END 2019-11-01 10:16 | disposition home or self-care (01) ==
LOC: OR 07:04
PROVIDERS: ATTEND Internal Medicine Sleep Medicine
PROC: 0B9J8ZX Drainage of Left Lower Lung Lobe, Via Natural or Artificial Opening Endoscopic, Diagnostic (ICD-10-PCS; 2019-11-01)
PROC: 0BBB8ZX Excision of Left Lower Lobe Bronchus, Via Natural or Artificial Opening Endoscopic, Diagnostic (ICD-10-PCS; principal; 2019-11-01 08:00)
DX: R91.8 Other nonspecific abnormal finding of lung field (principal); I10 Essential (primary) hypertension; G25.81 Restless legs syndrome; Z87.891 Personal history of nicotine dependence; Z79.82 Long term (current) use of aspirin
CPT/HCPCS: 88108 ×2; 88305 ×3; 87015; 87206; 87116; 87102; 71045; 76000; 31625; 31624; J2704; J2370; J3010; J7120

== ENCOUNTER 2020-07-12 06:38 | Day surgery (SDC) | payer OTHER ==
[2020-07-09 12:02] LABS: Absolute Lymphocytes (CBC) 0.5 K/uL (0.7-4.9); Basophils % 0.5 % (0-1.3); Hematocrit 26.5 % (36.0-45.0); Lymphocytes % 10.6 % (15.3-44.8); MPV 7.1 fL (7.6-11.3)
[2020-07-09 12:05] LABS: Protime INR 0.91
--- NOTE | 2020-07-09 12:15 | RAD REPORT ---
EXAM DESCRIPTION: RAD - Chest Pa And Lat (2 Views) - 07/09/2020 11:54 am CLINICAL HISTORY: pre op Chest pain. COMPARISON: Chest Single View dated 11/01/2019; Chest Single View dated 10/14/2019; Chest Pa And Lat ( 2 Views) dated 10/13/2019; Chest Single View dated 10/12/2019; Chest Single View dated 10/12/2019; Lung Biopsy Perc w/CT dated 10/12/2019; CT-RAD THERAPY FLD PLACE-CHEST dated 04/17/2020 FINDINGS: Emphysematous changes are present throughout the lungs. Round mass is noted left mid lung, appearing moderately reduced in size relative to several comparative studies. Tiny area of nodularit y is seen in the right base, appearing similar DISH comparative studies. The heart is normal in size. Mild aortic atherosclerosis.
[2020-07-09 12:32] LABS: Potassium 4.2 mmol/L (3.5-5.1)
[2020-07-09 12:58] LABS: Anisocytosis 2+; Blood Morphology Comment NOTED (NOT SEEN); Macrocytosis 2+; Platelet Estimate ADEQ; White Blood Cell Scan OK (OK)
--- OUTSIDE RECORDS SUMMARY | 2020-07-12 06:40 | XMS REPORT | Clinical Summary ---
:1945 Author Organization [facility] Address [address] [place] [address] Care Team Providers Name Role Phone Je Juares MD Primary Care Provider Allergies No Known Active Allergies Medications Medication Sig Dispensed Refills Start Date End Date Status pravastatin (PRAVACHOL) Take 20 mg by 0 08/31/2019 Active 20 MG tablet mouth daily. rOPINIRole (REQUIP) Take 0.25 mg by 0 Active 0.25 MG tablet mouth 3 (three) times a day. amLODIPine (NORVASC) Take 2.5 mg by 0 12/01/2019 Active 2.5 mg tablet mouth daily. Active Problems Not on file Encounters Date Type Specialty Care Team Description 03/05/2020 Orders Only Cardiothoracic Linda, Malignant keri plasm of Surgery RADHA Najera unspecified par t of unspecified bro nchus or lung (HCC) ( Primary Dx) 02/22/2020 Telephone Cardiothoracic Koby Bird Surgery MD Fernando 02/19/2020 Anesthesia Event Cardiothoracic Mario Vásquez Surgery MD Ashley Carcamo Roy, MD 02/19/2020 Surgery Cardiothoracic Koby Bird FLEXIBLE BRON CHOSCOPY, Surgery MD Fernando USING ELECTROMA GNETIC NAVIGATION WITH BIOPSY 02/19/2020 [facility] Cardiooracic Koby Bird Malignant keri plasm of Encounter Surgery MD Fernando unspecified par t of unspecified bro nchus or lung (HCC) 02/19/2020 Hospital Radiology Koby Bird Lung mass Encounter MD Fernando 02/19/2020 Travel 02/15/2020 Telephone Cardiothoracic Emmanuel, Surgery RADHA Kelly 02/14/2020 Lab Lab Koby Bird Lung mass; MD Fernando Pre-operative l aboratory examination 02/14/2020 Travel 02/13/2020 Telephone Cardiothoracic Linda, Surgery [place], [place] 02/08/2020 Travel 01/28/2020 [facility] Radiology Koby Bird Canceled (Cance led via Encounter MD Fernando Automated Remin lilian System) 01/18/2020 Orders Only Cardiothoracic Creede, Lung mass (Pr imary Dx); Surgery RADHA Najera Pre-operative l aboratory examination 01/17/2020 Travel 01/17/2020 Orders Only Cardiothoracic Meisenbach, Lung mass (Pr imary Dx) Surgery Carmen Roldan, VIRTUALIZATION ENGINEER 01/16/2020 [facility] Cardiothoracic Koby Bird Lung mass (Primary Dx) Review Surgery MD Fernando 01/15/2020 Telephone Cardiothoracic Linda, Surgery [place], RADHA 01/12/2020 Telephone Cardiothoracic Barrett, Surgery [place], [place] 01/11/2020 Telephone Cardiothoracic Linda, Surgery [place] 12/04/2019 Telephone Cardiothoracic Emmanuel, Surgery [place], [place] 12/04/2019 Orders Only Cardiothoracic Provider, Sarahy Ibarra MD 12/01/2019 [facility] Radiology Koby iBrd Malignant neopl asm of upper lobe of left lung (HCC); Encounter MD Fernando Preop examinati on 11/30/2019 Travel 11/30/2019 Telephone Cardiothoracic Meisenbach, Lung mass (Pr imary Dx) Surgery Carmen Roldan, VIRTUALIZATION ENGINEER 11/30/2019 Telephone Cardiothoracic Randolph, Surgery Carmen Roldan, VIRTUALIZATION ENGINEER 11/29/2019 Travel 11/28/2019 Telephone Cardiothoracic Randolph, Surgery Carmen Roldan, VIRTUALIZATION ENGINEER 11/24/2019 Telephone Cardiothoracic Barrett, Surgery [place], [place] 11/24/2019 Orders Only Cardiothoracic Linda, 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) (Primary Dx); Surgery RADHA Najera Preop examinati on 11/24/2019 Orders Only Cardiothoracic Koby Bird Surgery MD Fernando 11/23/2019 [facility] Radiology Koby Bird Encounter MD Fernando 11/23/2019 Office Visit Cardiothoracic Koby Bird Malignant keri plasm of Surgery MD Fernando upper lobe of l eft lung (HCC) (Sagrario marilee Dx) 11/15/2019 Orders Only Cardiothoracic Provider, Sarahy Ibarra MD 11/14/2019 Telephone Cardiothoracic Emmanuel, Sarahy Kelly MA after 07/12/2019 Surgical History Surgery Date Site/Laterality Comments BRONCHOSCOPY, USING 02/19/2020 Chest/N/A Procedure: F LEXIBLE ELECTROMAGNETIC NAVIGATION [facility] HOSCOPY, USING ELECTROMAGNETIC NAVIGATION WITH BIOPSY; Bruce rgeon: Koby Bird MD; Location: [facility]; Service: Thoracic; Later ality: N/A; US, ENDOBRONCHIAL 02/19/2020 N/A Procedure: EBU S WITH BIOPSY; Surgeon: Jass Bird MD; Location: [facility]; Service: Thoraci c; Laterality: N/A; Medical History Medical History Date Comments Allergic Lung nodule Cancer (HCC) Blocked artery Social History Tobacco Use Types Packs/Day Years Used Date Former Smoker Cigarettes 0.5 15 Quit: 1964 Smokeless Tobacco: Never Used Tobacco Cessation: Counseling Given: Yes Alcohol Use Drinks/Week oz/Week Comments Yes 5 Cans of beer 5.0 Sex Assigned at Date Recorded Not on file Last Filed Vital Signs Vital Sign Reading Time Taken Comments Blood Pressure 159/66 02/19/2020 5:13 PM CDT Pulse 89 02/19/2020 5:13 PM CDT Temperature 36.4 C (97.5 F) 02/19/2020 5:13 PM CDT Respiratory Rate 17 02/19/2020 5:13 PM CDT Oxygen Saturation 97% 02/19/2020 5:13 PM CDT Inhaled Oxygen Concentration - - Weight 82.6 kg (182 lb) 02/19/2020 8:36 AM CDT Height 167.6 cm (5' 6") 02/19/2020 8:36 AM CDT Body Mass Index 29.38 02/19/2020 8:36 AM CDT Plan of Treatment Health Maintenance Due Date Last Done Comments BREAST CANCER SCREENING 1995 COLONOSCOPY SCREENING 1995 SHINGLES VACCINES (#1) 1995 65+ PNEUMOCOCCAL VACCINE (1 of 1 - PPSV23) 2010 INFLUENZA VACCINE 04/20/2020 Procedures Procedure Name Priority Date/Time Associated Comments Diagnosis XR CHEST 1 VW PORTABLE STAT 02/19/2020 3:36 R esults for this PM CDT procedure are i n the results section. CYTOLOGY Routine 02/19/2020 3:13 Results for this (NON-GYNECOLOGICAL) PM CDT procedur e are in REQUEST the results section. CYTOLOGY Routine 02/19/2020 3:09 Results for this (NON-GYNECOLOGICAL) PM CDT procedur e are in REQUEST the results section. CYTOLOGY Routine 02/19/2020 3:07 Results for this (NON-GYNECOLOGICAL) PM CDT procedur e are in REQUEST the results section. CYTOLOGY Routine 02/19/2020 3:07 Results for this (NON-GYNECOLOGICAL) PM CDT procedur e are in REQUEST the results section. CYTOLOGY Routine 02/19/2020 3:07 Results for this (NON-GYNECOLOGICAL) PM CDT procedur e are in REQUEST the results section. CYTOLOGY Routine 02/19/2020 2:49 Results for this (NON-GYNECOLOGICAL) PM CDT procedur e are in REQUEST the results section. CYTOLOGY Routine 02/19/2020 2:48 Results for this (NON-GYNECOLOGICAL) PM CDT procedur e are in REQUEST the results section. WV AN EMERGENT Routine 02/19/2020 1:08 Results f or this ENDOTRACHEAL AIRWAY PM CDT procedur e are in the results section. CT CHEST WO CONTRAST Routine 02/19/2020 8:11 Lung mass Res ults for this AM CDT procedure are i n the results section. ESTIMATED GFR Routine 02/14/2020 11:15 Results fo r this AM CDT procedure are i n the results section. PARTIAL THROMBOPLASTIN Routine 02/14/2020 11:15 Lung mas s Results for this TIME (PTT) AM CDT Pre-operative procedure are in laboratory the results examination section. PROTHROMBIN TIME WITH Routine 02/14/2020 11:15 Lung mass Results for this INR AM CDT Pre-operative procedure are in laboratory the results examination section. HC COMPLETE BLD COUNT Routine 02/14/2020 11:15 Lung mass Results for this W/AUTO DIFF AM CDT Pre-operative procedure are in laboratory the results examination section. COMPREHENSIVE METABOLIC Routine 02/14/2020 11:15 Lung ma ss Results for this PANEL AM CDT Pre-operative procedure are in laboratory the results examination section. COVID-19 QUALITATIVE Routine 02/14/2020 11:05 Lung mass Results for this PCR AM CDT Pre-operative procedure are in laboratory the results examination section. CT CHEST WO CONTRAST Routine 12/01/2019 11:05 Malignant neopla sm Results for this AM CDT of upper lobe of procedure a re in left lung (HCC) the results Preop examination section. CBC WITH PLATELET AND Routine 11/24/2019 3:27 Re sults for this DIFFERENTIAL AM [employer] procedure are i n the results section. PROTHROMBIN TIME WITH Routine 11/24/2019 3:27 Re sults for this INR AM [employer] procedure are i n the results section. PARTIAL THROMBOPLASTIN Routine 11/24/2019 3:27 R esults for this TIME (PTT) AM [employer] procedure are i n the results section. COMPREHENSIVE METABOLIC Routine 11/24/2019 3:27 Results for this PANEL AM [employer] procedure are i n the results section. PET CT WHOLE BODY Routine 09/07/2019 10:11 Result s for this EXTERNAL STUDY AM [employer] procedure are in the results section. PET CT SKULL BASE TO Routine 09/07/2019 MID THIGH PULMONARY FUNCTION TEST Routine 08/29/2019 MRA HEAD WO CONTRAST Routine 08/10/2019 MRI BRAIN W WO CONTRAST Routine 08/10/2019 after 07/12/2019 Results XR Chest 1 Vw Portable (02/19/2020 3:36 PM CDT) Specimen Narrative Performed At SINGLE VIEW CHEST, 02/19/2020 [facility] Clinical History: Status post biopsy and bronchoscopy. Technique: Single, portable AP view ches t. Comparison: CT chest 02/19/2020 at 0749 ho urs. Impression: 1.No pneumothorax. 2.Large lingular mass seen to better advantage on CT c hest of the same date. 3.Clear right lung with mild air trappin g from emphysema. 4.No pleural effusion. 5.Normal heart size. 6.Intact skeleton. Procedure Note Interface, Radiology Results Incoming - 02/19/2020 3:42 PM CDT SINGLE VIEW CHEST, 02/19/2020 Clinical History: Status post biopsy and bronchoscopy. Technique: Single, portable AP view ches t. Comparison: CT chest 02/19/2020 at 0749 ho urs. Impression: 1.No pneumothorax. 2.Large lingular mass seen to better adv antage on CT chest of the same date. 3.Clear right lung with mild air trappin g from emphysema. 4.No pleural effusion. 5.Normal heart size. 6.Intact skeleton. Performing Organization Address City/State/ZIP Code Phon e Number [facility] [address] [facility] [place] [address] Cytology (non-gynecological) request (02/19/2020 3:13 PM CDT)Only the most recent of7 resultswithin the time period is included. [facility] DEPARTMENT OF PATHOLOGY AND GENOMIC MEDICINE Cytology See link below [facility] DEPARTMENT OF (non-gynecological) for PDF Lab PATHOLOGY AND report Report GENOMIC MEDICINE Result status This is Final [facility] DEPARTMENT OF Report for PATHOLOGY AND [id number] GENOMIC MEDICINE Specimen Performing Organization Address City/State/ZIP Code Phon e Number [facility] DEPARTMENT OF PATHOLOGY AND [address] [place] [address] GENOMIC MEDICINE Airway (02/19/2020 1:08 PM CDT) Narrative Performed At Praveen Leon 02/19/2020 1:32 P M Airway Performed by: Arabella Germain M D Authorized by: Jay Ramirez MD Location: OR Urgency: Emergent Difficult Airway: No Anesthesiologist: Arabella Germain MD Resident/CHILD HEALTH ASSOCIATE/AA: Emmanuel Lara MD Performed by: resident/CHILD HEALTH ASSOCIATE/AA Consent Given By: Patient Preoxygenated with 100% O2: Yes C-spine Precautions Maintained Throughou t: Yes Mask Ventilation: Easy mask Final Airway Type: Endotracheal airway Final Endotracheal Airway: ETT Technique Used: Direct laryngoscopy Devices/Methods Used in Placement: Int ubating stylet Insertion Site: Oral Blade Type: Bunny Laryngoscope Blade/Videolaryngoscope Adolfo de Size: 3 ETT Size (mm): 8.0 Measured from: Lips ETT to Lips (cm): 23 Placement Verified by: CO2 detection Laryngoscopic view: Grade IIa - partia l view of glottis Rapid Sequence Induction (RSI): No Modified RSI: No Number of Attempts at Approach: 1 CT Chest Wo Contrast (02/19/2020 8:11 AM CDT)Only the most recent of2 results within the time period is included. Specimen Narrative Performed At EXAMINATION: CT CHEST WO CONTRAST [facility] CLINICAL HISTORY: R91.8 Other nonspecific abnormal fin ding of lung field, lung mass TECHNIQUE: Multi-detector computed axial tomography (C AT) of the chest was performed without IV iodinated contrast. Computed axial tomography of the chest was performed with thin slice sections du ring supine inspiration, supine expiration, and pron e inspiration. Coronal maximum intensity projections o f the chest, and sagittal and coronal computerized reformatted images o f the chest were created at a workstation and archived fo r review. DOSE REDUCTION: CT imaging was performed with iterativ e reconstruction technique and/or automated exposure cont rol to reduce radiation dose. COMPARISON: CT chest December 01, 2019. IMPRESSION: 1.Enlarging solid mass in the lingula consistent with primary lung malignancy until proven otherwise. FINDINGS: Enlarging 6.8 x 6.1 x 5.6 cm solid mass in t he anterior left upper lobe with associated postobstructive subsegmenta l atelectasis, previously measuring 5.8 x 5.8 x 5.2 cm. Mass occludes the anterior left upper lobe segmental bronchus, extends t o the pleural surfaces, and there is a broad area of co ntact with the mediastinum. Mass may also extend to the hilum at the level of the superior pulmonary vein and left upper l obar bronchus. Mild to moderately severe centrilobular emphysema. Foc i of linear scarring within the lung bases. Right middle lobe calc ified granuloma and calcified peribronchial lymph node. No abnormality of the airways. No pleural effusion. Heart is normal in size. Focal calcification of the pr oximal left circumflex coronary artery. No abnormali ty of the pericardium. Aorta is nonaneurysmal and there is diffuse and severe atherosclerotic disease with involvement of the arch great vessels. Pr oximal left subclavian artery is occluded by dense calcified plaqu e, and there is dense calcified plaque narrowing the pro ximal and mid segments of the right subclavian artery. Pulmo nary artery is normal in diameter. No mediastinal mass, thoracic lymphadenopathy, suspici ous thyroid nodule, or abnormality of the esophagus. Images of the upper abdomen show calcified granulomas in the spleen, scarring of the kidneys, and diverticulo sis of the colon. Degenerative changes in the spine. Healed posterolater al right sixth rib fracture with residual deformity. No acute or suspicio us osseous lesion is identified. [facility]-[id number] Procedure Note Hm Interface, Radiology Results - 02/19/2020 8:35 AM CDT EXAMINATION: CT CHEST WO CONTRAST CLINICAL HISTORY: R91.8 Other nonspecifi c abnormal finding of lung field, lung mass TECHNIQUE: Multi-detector computed axial tomography (CAT) of the chest was performed without IV iodinated contrast. Computed axial tomography of the chest was performed with thin slice sections during supine inspiration, supine expiration, and prone inspiration. Coronal maximum intensity projections of the chest, and sagittal and coronal computerized reformatted images of the chest were created at a workstation and archived for review. DOSE REDUCTION: CT imaging was performed with iterative reconstruction technique and/or automated exposure control to reduce radiation dose. COMPARISON: CT chest December 01, 2019. IMPRESSION: 1.Enlarging solid mass in the lingula co nsistent with primary lung malignancy until proven otherwise. FINDINGS: Enlarging 6.8 x 6.1 x 5.6 cm s olid mass in the anterior left upper lobe with associated postobstructive subsegmental atelectasis, previously measuring 5.8 x 5.8 x 5.2 cm. Mass occludes the anterior left upper lobe segmental bronchus, extends t o the pleural surfaces, and there is a br oad area of contact with the mediastinum. Mass may also extend to the hilum at the level of the superior pulmonary vein and left upper lobar bronchus. Mild to moderately severe centrilobular emphysema. Foci of linear scarring within the lung bases. Right middle lobe calcified granuloma and calcified peribronchial lymph node. No abnormality of the airways. No pleural effusion. Heart is normal in size. Focal calcifica tion of the proximal left circumflex coronary artery. No abnormality of the pericardium. Aorta is nonaneurysmal and there is diff use and severe atherosclerotic disease with involvement of the arch great vessels. Proximal left subclavian artery is occluded by dense calcified plaque, and there is dense calcified plaque narrowing the pro ximal and mid segments of the right subclavian artery. Pulmonary artery is normal in diameter. No mediastinal mass, thoracic lymphadeno faraz, suspicious thyroid nodule, or abnormality of the esophagus. Images of the upper abdomen show calcifi ed granulomas in the spleen, scarring of the kidneys, and diverticulosis of the colon. Degenerative changes in the spine. Heale d posterolateral right sixth rib fracture with residual deformity. No acute or suspicious osseous lesion is identified. [facility]-[id number] Performing Organization Address City/State/ZIP Code Phon e Number [facility] [address] [place] [address] Estimated GFR (02/14/2020 11:15 AM CDT) Estimated GFR 85 mL/min/1.73 PAGE JEW Comment: [address] Catergory Units Interpretation G1 >=90 Normal or high G2 60-89 Mildly decreased G3a 45-59 Mildly to moderately decreas ed G3b 30-44 Moderately to severely decre ased G4 15-29 Severely decreased G5 <15 Kidney failure The eGFR was calculated using the Chronic Kidney Disea se Epidemiology Collaboration (CKD-EPI) equation. Interpretation is based on recommendations of the National Kidney Foundation-Kidney Disease Outcomes Radhames lity Initiative (NKF-KDOQI) published in 2014. Specimen Performing Organization Address City/[facility] Phon e Number [facility] DEPARTMENT OF PATHOLOGY AND [address] [place] [phone] Partial thromboplastin time, activated (02/14/2020 11:15 AM CDT)Only the most recent of2 resultswithin the time period is included. Pathologist [facility] PTT 33.3 23.0 - 36.0 CAMILO GARCIA Comment: [facility] PTT therapeutic range for unfractionated heparin is 61.0-112.0 seconds which corresponds to Anti-Xa 0.3-0.7 U/ml. Specimen Blood Performing Organization Address [facility] Phon e Number [facility] DEPARTMENT OF PATHOLOGY AND [address] [place] [phone] Prothrombin time with INR (02/14/2020 11:15 AM CDT)Only the most recent of2 resultswithin the time period is included. Pathologist [facility] Prothrombin time 12.3 11.5 - 14.5 [facility] INR 0.9 OMAHA Comment: JEW The International Normalized Ratio (INR) is a therapeu [facility] HOSPITAL monitoring tool for patients who are stable on oral anticoagulant therapy. An INR of 2.0-3.0 is suggested for deep vein thrombosis/pulmonary embolism. Specimen Blood Performing Organization Address [facility] Phon e Number [facility] DEPARTMENT OF PATHOLOGY AND [address] [place] [address] [phone] [address] CBC with platelet and differential (02/14/2020 11:15 AM CDT)Only the most recent of2 resultswithin the time period is included. WBC 11.00 4.50 - 11.00 [facility] k/uL HOSPITAL RBC 4.75 4.20 - 5.50 [facility] m/uL HOSPITAL HGB 14.6 12.0 - 16.0 [facility] g/dL [facility] HCT 44.5 37.0 - 47.0 % [facility] MCV 93.7 82.0 - 100.0 [facility] MCH 30.7 27.0 - 34.0 pg [facility] MCHC 32.8 31.0 - 37.0 [facility] g/dL [facility] RDW - SD 41.0 37.0 - 55.0 fL [facility] MPV 8.7 (L) 8.8 - 13.2 fL [facility] Platelet count 385 150 - 400 k/uL [facility] Nucleated RBC 0.00 /100 WBC [facility] Neutrophils 66.5 39.0 - 69.0 % [facility] Lymphocytes 21.7 (L) 25.0 - 45.0 % [facility] Monocytes 8.5 0.0 - 10.0 % [facility] Eosinophils 1.8 0.0 - 5.0 % [facility] Basophils 0.9 0.0 - 1.0 % [facility] Immature granulocytes 0.6Comment: 0.0 - 1.0 % [facility] "Immature [facility] granulocytes" (promyelocytes , myelocytes, metamyelocytes ) Specimen Blood Performing Organization Address City/State/ZIP Code Phon e Number [facility] DEPARTMENT OF PATHOLOGY AND [address] [place] [phone] GENOMIC MEDICINE [address] [address] Comprehensive metabolic panel (02/14/2020 11:15 AM CDT)Only the most recent of2 resultswithin the time period is included. Sodium 133 (L) 135 - 148 [facility] mEq/L [facility] Potassium 4.3 3.5 - 5.0 [facility] mEq/L [facility] Chloride 95 (L) 98 - 112 [facility] mEq/L [facility] CO2 25 24 - 31 mEq/L [facility] Anion gap 13@ANIO 7 - 15 mEq/L [facility] BUN 10 8 - 23 mg/dL [facility] Creatinine 0.69 0.50 - 0.90 [facility] mg/dL [facility] Glucose 124 (H) 65 - 99 mg/dL [facility] Calcium 10.3 (H) 8.8 - 10.2 [facility] mg/dL [facility] Protein 7.9 6.3 - 8.3 [facility] Comment: g/dL HOSPITAL - 4.6-7.0 g/dL 1 week 4.4-7.6 g/dL 7 months-1year 5.1-7.3 g/dL 1-2 years 5.6-7.5 g/dL >3 years 6.0-8.0 g/dL 18-150 6.3-8.3 g/dL Albumin 4.1 3.5 - 5.0 [facility] g/dL [facility] A/G ratio 1.1 0.7 - 3.8 [facility] Alkaline phosphatase 103 35 - 104 U/L [facility] AST 33 10 - 35 U/L [facility] ALT 24 5 - 50 U/L [facility] Total bilirubin 0.5 0.0 - 1.2 [facility] mg/dL HOSPITAL Specimen Blood Performing Organization Address City/[facility] Phon e Number [facility] DEPARTMENT OF PATHOLOGY AND [address] [place] [address] COVID-19 qualitative PCR (02/14/2020 11:05 AM CDT) Interpretation Negative results do not prec lude 2019-nCoV infection and should not be used as the sole basis for treatment or other patient management decisions. Negative results must be combined with clinical observations, patient history, and epidemiological OMAHA information. [facility] COVID-19 qualitative Not-Detected Not-Detecte OMAHA PCR result d [facility] COVID-19 qualitative See link below for OMAHA PCR PDF Lab JEW ReportComment: Case HOSPITAL Number: [id number] Specimen Performing Organization Address City/[facility] Phon e Number [facility] DEPARTMENT OF PATHOLOGY AND [address] [place] [address] PET/CT Whole Body External Study (09/07/2019 10:11 AM [employer]) Specimen Narrative Performed At This exam [facility] not [facility] and has not been HM [facility] interpreted by a Shinto Provider. T he exam was imported into our imaging system. Performing Organization Address City/State/ZIP Code Phon e Number JANET [facility] [address] [place] [address] PET/CT Skull Base To Mid Thigh (09/07/2019) Narrative Performed At This result has an attachment that is no t available. Pulmonary function tests, complete (08/29/2019) Narrative Performed At This result has an attachment that is no t available. MRI Brain W Wo Contrast (08/10/2019) Narrative Performed At This result has an attachment that is no t available. MRA Head Wo Contrast (08/10/2019) Narrative Performed At This result has an attachment that is no t available. after 07/12/2019 Advance Directives For more information, please contact: [phone] Type Date Recorded Patient Con[employer]or [employer] on Advance Directives, Living Will and Medical Power of Search Engine Optimizer
--- OUTSIDE RECORDS SUMMARY | 2020-07-12 06:41 | XMS REPORT | Encounter Summary ---
:1945 Author Care Team Providers Name Role Phone Dr. Je Juares Primary Care Provider [phone] Reason for Visit TELE-AWV Annual Wellness Visit Female Instructions 1. Advance directive discussed w ith patient advance care planning: car e instructions 2. Depression screening learning about depression 3. Essential hypertension 4. Hypercholesterolemia 5. Restless legs 6. Atherosclerosis of aorta 7. Nicotine dependence stopping smoking: care ins tructions Discussion Note Patient advice to take meds as dire cted. Patient report that she see's her pcp a month ago and all went well. Patient enc ouraged to notify pcp for any continues fever,cough, and sob. Patient verbalized understanding. Plan of Care Patient Instructions It was good to speak with you iveth ramey today for your Medicare Annual Wellness Visit. You have been provided some information on healthy nutrition, including a diet rich in fruits and vegetables, minimizing simple carbohydrates, salt, and saturated fats. I want to encourage regular cardiovascular exercise such as walking at least 30 minutes daily, 5 times per week. Please remember to schedule any prevent roland health measures that we talked about today. You have also been provided education on fall prevention and community- based lifestyle interventions to help reduc e health risks and promote healthy livin g in your Annual Wellness folder. Screening Recommendations 1. Vaccines Pneumonia: Recommended toda y Influenza: Recommended today 2. Mammography Screening: Recommended today 3. Colorectal Cancer Screening: Colonoscopy (every 10 years) Recommended today 4. Annua l Depression Screening 5. Annual Alcohol Screening 6. Annual Fall Risk Screening 7. Annual Health Risk Assessment Reminders Provider Appointments None recorded. Lab None recorded. Referral None recorded. Procedures None recorded. Surgeries None recorded. Imaging None recorded. Medications Name Start Date amlodipine 5 mg tablet Take 1 tablet every day by oral route. aspirin 81 mg tablet,delayed release Take 1 tablet every day by oral route. pravastatin 20 mg tablet 08/10/2019 1 tablet by oral route. ropinirole 0.25 mg tablet 08/10/2019 1 tablet by oral route. Medications Administered None recorded. Vitals Height Weight BMI 5 ft 6 in 175 lbs 28.2 kg/m2 Results Lab Results None recorded. Allergies None recorded. Problems Name Status Onset Date Source Hypercholesterolemia Active 06/24/2020 Restless Legs Active 06/24/2020 Essential Hypertension Active 06/24/2020 Nicotine Dependence Active 06/26/2020 Procedures None recorded. Vaccine List None recorded. Social History Tobacco Smoking Status Heavy Tobacco Smoker (1/2 PPD) Past Encounters 06/24/2020 Advance Directive Discussed with Patient ; Depression Screening; Essential Hypertension; Hypercholesterolemia; Restless Legs; Atherosclerosis of Aorta; Nicotine Dependence Paula Booker, INTERNAL AUDIT MANAGER: [id number] [facility], [address], [place] [address], Ph. History of Present Illness Mini Cog Reported By: Patient Functional Ability: Personal/Social/ 3 word reca ll: Your nurse or doctor will ask you to remember 3 words. In 5 m inutes, they will ask you to repeat them. Patient recalled 3 w ords Opioid Use Assessment Reported By: Patient Opioid Use Assessment:: Current Use of Opioids : no use of opioids (no further questions required) Note: I confirm that I received verbal consent from the patient for the virtual visit.
This telemedicine encounter was performed using live {{video and audio|audio only because either patient did not have technology or unable to connect due to technical problems*}}.
<strong>(for a udio only)</strong> Total time spent with patient: {{55#| }} minutes.<div>[facility] ( MIRANDA: _Paula Booker ) reviewed the Virtual Care consent form verbally withpatient. Patient {{did*|did not}} have questions. Any and all patient questions were addressed. Patient consented to health care services provided via [facility]. Patient was directed to the [facility] website to review the form in greater detail. Patient was informed that a physical copy of the consent would be mailed to his/her home. Patient confirmed that, upon receipt of the consent, that he/she will sign and return the form in the pre-addressed and stamped envelope.</div> Review of Systems Comprehensive General Adult ROS Reported By: Patient Constitutional: Constitutional: no fever, no night sweats, no significant weight gain, no significant weight loss, no exercise intolerance Eyes: Eyes: no dry eyes, no vision change, no irritation ENMT: Ears: no difficulty hearing, no ear pain. Nose: no frequent nosebleeds, no nose problems , no sinus problems. Mouth/Throat: no sore throat, no bleeding gums, no snoring, no dry mouth, no mouth ulcers, no oral abnorm alities, no teeth problems Cardiovascular: Cardiovascular: no chest gregory n, no arm pain on exertion, no shortness of breath when wal mary, no shortness of breath when lying down, no palpitations, no known heart murmur, no lightheadedness Respiratory: Respiratory: no cough, no wh eezing, no shortness of breath, no coughing up blood, no sleep apnea Gastrointestinal: Gastrointestinal: no abdomin al pain, no nausea, no vomiting, no constipation, normal appe tite, no diarrhea, not vomiting blood, no dyspepsia, no GERD Genitourinary: Genitourinary: no incontinen ce, no difficulty urinating, no hematuria, no increased freq uency Musculoskeletal: Musculoskeletal: no muscle a ches, no muscle weakness, no arthralgias/joint pain, no b ack pain, no swelling in the extremities Integumentary: Skin: no abnormal mole, no j aundice, no rashes, no laceration Neurologic: Neurologic: no loss of consc iousness, no weakness, no numbness, no seizures, no di zziness, no migraines, no headaches, no tremor Psychiatric: Psych: no depression, no sle ep disturbances, feeling safe in a relationship, no alcohol abu se, no anxiety, no hallucinations, no suicidal thoughts Endocrine: Endocrine: no fatigue Hematologic/Lymphatic: Hematologic/Lymphatic no swo llen glands, no bruising, no excessive bleeding Allergic/Immunologic: Allergy/Immunologic: no runn y nose, no sinus pressure, no itching, no hives, no freque nt sneezing Physical Exam Telemedicine/Virtual Visit Reported By: Patient Constitutional: Level of Distress: NAD. Ambu lation: ambulating normally Psychiatric: Insight: good judgement. Men earnestine Status: active and alert, normal mood, normal affect. Orienta tion: to time, to place, to person. Memory: recent memory normal , remote memory normal"
--- OUTSIDE RECORDS SUMMARY | 2020-07-12 06:41 | XMS REPORT | Continuity of Care Document ---
:1945 Author Organization [facility] t Address [address] [place] [address] Care Team Providers Name Role Phone Blanquita CAMPOS, Tracy Primary Care Physician Linda GARCIA Attending Clinician Unavailable Pelon CAMPOS, Y.H. Attending Clinician Carlos Alberto Vásquez MD Attending Clinician Ashley CAMPOS Attending Clinician Emmanuel GARCIA Attending Clinician Unavailable Randolph MONTEJO M. Attending Clinician Barrett GARCIA Attending Clinician Unavailable Provider Attending Clinician Radiology Attending Clinician Unavailable Doctor Unassigned, Name Attending Clinician Unavailable PELON Admitting Clinician Unavailable Payers Payer Name Policy Type Policy Effective Expiration Source Number Date Date TEXANPLUSTEXANPLUS [id number] 2019 Adelina canales [id number] 2019-Pr 00:00:00 M ethodist esentHMO Problems Condition Condition Condition Status Onset Resolution Last Treating Co mments Source Name Details Category Date Date Treatment Clinician Date Nicotine Nicotine Problem Active 2019-09 Flores ge dependence Dependence 0-07 Fa juan 00:00: Practic 00 e Hyperchole Hyperchole Problem Active 2019-09 [facility] sterolemia sterolemia 0-05 Fa juan 00:00: Practic 00 e Restless Restless Problem Active 2019-09 Flores ge legs Legs 0-05 Family 00:00: Practic 00 e Essential Essential Problem Active 2019-09 Adria jeanne hypertensi Hypertensi 0-05 Fa juan on on 00:00: Practic 00 e Allergies, Adverse Reactions, Alerts This patient has no known allergies or adverse reactions. Social History Social Habit Start Date Stop Date Quantity Comments Source History of tobacco Current smoker Figueroa segura [facility]ism use Sex Assigned At Alvaro Giraldo ethodist Cigarettes smoked 2020-02-21 2020-02-21 Alvaro Montoya current (pack per 00:00:00 00:00:00 day) - Reported Cigarette 2020-02-21 2020-02-21 Alvaro Posey ist pack-years 00:00:00 00:00:00 Tobacco use and 2020-02-21 2020-02-21 Never used Alvaro Giraldo ethodist exposure 00:00:00 00:00:00 Alcohol intake 2020-02-21 2020-02-21 Current drinker [place] on [facility] 00:00:00 00:00:00 of alcohol (finding) Smoking Status Start Date Stop Date Source Heavy Tobacco Smoker [place] [facility] Practice Former smoker 2020-02-21 00:00:00 2020-02-21 00:00:00 John [facility] Medications Ordered Filled Start Stop Current Ordering Indication Dosage Frequency Signature Comments Components Source Medication Medication Date Date Medication? Clinician (SIG) Name Name rOPINIRole Yes .25mg Q.[id number] Take 0.25 Alvaro (REQUIP) 6-01 [id number] mg by Meth victor manuel 0.25 MG 18:06: 3D mouth 3 st tablet 39 (three) times a day. amLODIPine Yes 2.5mg QD Take 2.5 Ho imelda (NORVASC) 3-13 mg by Methodi 2.5 mg 00:00: mouth st tablet 00 daily. pravastatin 2018-09 Yes 20mg QD Take 20 mg John (PRAVACHOL) 2-12 by mouth Meth victor manuel 20 MG 00:00: daily. st tablet 00 pravastatin pravastatin 2018-09 No 1TAB pravastati [facility] 20 mg 20 mg 1-21 n 20 mg Family tablet 1 tablet 1 00:00: tablet 1 Practic tablet by tablet by 00 tablet by e oral route. oral route. oral route. ropinirole ropinirole 2018-09 No 1TAB ropinirole [facility] 0.25 mg 0.25 mg 1-21 0.25 mg Family tablet 1 tablet 1 00:00: tablet 1 Practic tablet by tablet by 00 tablet by e oral route. oral route. oral route. amlodipine amlodipine No 1 Q1D amlodipine [facility] 5 mg tablet 5 mg tablet 5 mg F amily Take 1 Take 1 tablet Practic tablet tablet Take 1 e every day every day tablet by oral by oral every day route. route. by oral route. aspirin 81 aspirin 81 No 1 Q1D aspirin 81 Village mg mg mg Family tablet,daljit tablet,daljit tablet,del Practic yed release yed release ayed e Take 1 Take 1 release tablet tablet Take 1 every day every day tablet by oral by oral every day route. route. by oral route. Vital Signs Vital Name Observation Time Observation Value Comments Source Height 2020-06-24 00:00:00 66 [in_i] [facility] BMI (Body Mass 2020-06-24 00:00:00 28.2 kg/m2 [facility]) Practice Body Weight 2020-06-24 00:00:00 175 [lb_av] [facility] Systolic blood 2020-02-19 17:13:00 159 mm[Hg] Adelina n Sikhism pressure Diastolic blood 2020-02-19 17:13:00 66 mm[Hg] [place] on [facility] pressure Heart rate 2020-02-19 17:13:00 89 /min [facility] Body temperature 2020-02-19 17:13:00 36.39 Latasha Edin ton Sikhism Respiratory rate 2020-02-19 17:13:00 17 /min Edin suresh Sikhism Oxygen saturation in 2020-02-19 17:13:00 97 /min Alvaro Poseyist Arterial blood by Pulse oximetry Body height 2020-02-19 08:36:00 167.6 cm John [facility] Body weight 2020-02-19 08:36:00 82.555 kg John [facility] BMI 2020-02-19 08:36:00 29.38 kg/m2 Alvaro Montoya Procedures Procedure Date / Time Performing Clinician Source Performed XR CHEST 1 VW PORTABLE 2020-02-19 15:36:06 Garland [place] on [facility] CYTOLOGY 2020-02-19 15:13:00 Koby Bird Va [facility]odist (NON-GYNECOLOGICAL) REQUEST CYTOLOGY 2020-02-19 15:09:00 Koby Bird Va thodist (NON-GYNECOLOGICAL) REQUEST CYTOLOGY 2020-02-19 15:07:00 Koby Bird Va thodist (NON-GYNECOLOGICAL) REQUEST CYTOLOGY 2020-02-19 14:49:00 Koby Bird Me thodist (NON-GYNECOLOGICAL) REQUEST CYTOLOGY 2020-02-19 14:48:00 Koby Bird Me thodist (NON-GYNECOLOGICAL) REQUEST WI AN EMERGENT 2020-02-19 13:08:32 Arabella Germain Meth odist ENDOTRACHEAL AIRWAY [facility] CT CHEST WO CONTRAST 2020-02-19 08:11:52 Koyb Bird on Sikhism COMPREHENSIVE METABOLIC 2020-02-14 11:15:00 Koby Bird S[facility]ism PANEL HC COMPLETE BLD COUNT 2020-02-14 11:15:00 Koby Bird S[facility]ism W/AUTO DIFF PROTHROMBIN TIME WITH INR 2020-02-14 11:15:00 Koby Bird PARTIAL THROMBOPLASTIN 2020-02-14 11:15:00 Koby Bird S[facility]ism TIME (PTT) ESTIMATED GFR 2020-02-14 11:15:00 Koby Bird Va [facility]odist COVID-19 QUALITATIVE PCR 2020-02-14 11:05:[address] CHEST WO CONTRAST 2019-12-01 11:05:55 Koby Bird on [facility]ism COMPREHENSIVE METABOLIC 2019-11-24 03:27:00 Koby Bird [facility] PANEL PARTIAL THROMBOPLASTIN 2019-11-24 03:27:00 Koby Bird TIME (PTT) PROTHROMBIN TIME WITH INR 2019-11-24 03:27:00 Koby Bird CBC WITH PLATELET AND 2019-11-24 03:27:00 Koby Bird [facility]ism DIFFERENTIAL PET CT WHOLE BODY EXTERNAL 2019-09-07 10:11:00 Koby Bird STUDY PET CT SKULL BASE TO MID 2019-09-07 00:00:00 Dejah Rivera THIGH PULMONARY FUNCTION TEST 2019-08-29 00:00:00 Stacey Rivera MRI BRAIN W WO CONTRAST 2019-08-10 00:00:00 Stacey Rivera MRA HEAD WO CONTRAST 2019-08-10 00:00:00 Provider, Historical Figueroa [facility] Sikhism Plan of Care Planned Activity Planned Date Details Comments Source Future Scheduled Test 2020-04-20 INFLUENZA VACCINE formerly [facility] Sikhism 00:00:00 [code = INFLUENZA VACCINE] Future Scheduled Test 2010 65+ PNEUMOCOCCAL [facility] Sikhism 00:00:00 VACCINE (1 of 1 - PPSV23) [code = 65+ PNEUMOCOCCAL VACCINE (1 of 1 - PPSV23)] Future Scheduled Test 1995 BREAST CANCER [place] [facility] 00:00:00 SCREENING [code = BREAST CANCER SCREENING] Future Scheduled Test 1995 COLONOSCOPY SCREENING [place] [facility] 00:00:00 [code = COLONOSCOPY SCREENING] Future Scheduled Test 1995 SHINGLES VACCINES formerly [facility] S[facility]ism 00:00:00 (#1) [code = SHINGLES VACCINES (#1)] Instructions [facility] Encounters Start End Encounter Admission Attending Care Care Encounter Source Date/Time Date/Time Type Type Clinicians Facility Department ID 2020-06-24 2020-06-24 Paula [facility] [place] - [id number] V illage 00:00:00 00:00:00 [facility] carlyn massey UNDER TRIMMER: Medical - Practi c [email or web address]@_ [facility], [address], [place] [address] , Ph. 2020-02-19 2020-02-19 Outpatient [facility], [facility] [id number] [place] 00:00:00 00:00:[address] EDWARD [address] 2020-02-19 2020-02-19 Outpatient [facility] [id number] [place] 00:00:00 00:00:00 EDWARD [address] 2020-02-14 2020-02-14 Outpatient [facility] [id number] [place] 00:00:00 00:00:00 EDWARD [address] 2020-01-28 2020-01-28 Outpatient [facility], [facility] [id number] [place] 00:00:00 00:00:00 EDWARD [address] 2019-12-01 2019-12-01 Outpatient [facility] [id number] [place] 00:00:00 00:00:00 EDWARD [address] 2019-11-23 2019-11-23 Outpatient BIRD, [facility] [id number] [place] 00:00:00 00:00:00 EDWARD 551 [address] i 2019-11-23 2019-11-23 Outpatient BIRD, [facility] [id number] [place] 00:00:00 00:00:00 EDWARD 676 [address] i 2019-10-23 2019-10-23 [facility] Radiology [facility] [id number] 13:45:00 23:59:00 Encounter [place] [id number] [place] [id number] [place] [id number] 2019-10-23 2019-10-23 Orders Doctor PAVEL [id number] 00:00:00 00:00:00 Only Unassigned, ALE [id number] [place] [facility] [id number] Results Test Description Test Time Test Comments Results Result Comments Source Cytology (non-gynecological) request 2020-02-20 18:17:11 Test Item Value Reference Range Interpretation Comme nts Case number (test code = [id number]) [id number] Cytology (non-gynecological) report (test See link below for PDF La b Report code = 1178) Result status (test code = 9474355) This is Final Report for [id number] 2338-9 [facility] Chest 1 Vw [id number] 15:39:41Hm Interface, Radiology Results - 02/19/2020 3:42 PM CDTSINGLE VIEW CHEST, 02/19/2020Clinical History: Status post biopsy and bronchoscopy.Technique: Single, portable AP view chest.Comparison: CT chest 02/19/2020 at 0749 hours.Impression:1.No pneumothorax.2.Large lingular mass seen to better adva ntage on CT chest of the same date.3.Clear right lung with mild air trapping from emphysema.4.No pleural effusion.5.Normal heart size.6.Intact skeleton. [place] [id number] 13:08:32MoralPraveen guerrier 02/19/2020 1:32 PMAirwayPerformed by: Arabella Germain, MDAuthorized by: Jay Ramirez MD Location: ORUrgency: EmergentDifficult Airway: No Anesthesiologist: Arabella Germain MDResident/INTELLIGENCE OFFICER BASIC/AA: Emmanuel Lara MDPerformed by: resident/INTELLIGENCE OFFICER BASIC/AAConsent Given By: PatientPreoxygenated with 100% O2: Yes C- spine Precautions Maintained Throughout: Yes Mask Ventilation: Easy maskFinal Airway Type: Endotracheal airwayFinal Endotracheal Airway: ETTTechnique Used: Direct laryngoscopyDevices/Methods Used in Placement: Intubating styletInsertion Site: OralBlade Type: MacintoshLaryngoscope Blade/Videolaryngoscope Blade Size: 3ETT Size (mm): 8.0Measured from: LipsETT to Lips (cm): 23Placement Verified by: CO2 detection Laryngoscopic view: Grade IIa - partial view of glottisRapid Sequence Induction (RSI): No Modified RSI: No Number of Attempts at Approach: 1[facility] MethodistCT Chest Wo Contrast 2020-02-19 08:32:41Hm Interface, Radiology Results 02/19/2020 8:35 AM CDTEXAMINATION: CT CHEST WO CONTRASTCLINICAL HISTORY: R91.8 Other nonspecific abnormal finding of lung field, lung massTECHNIQUE: Multi-detector computed axial tomography (CAT) of the chest was performed without IV iodinated contrast. Computed axial tomography of the chest was performed with thin slice sections during supine inspiration, supine expiration, and prone inspiration. Coronal maximum intensity projections of the chest, and sagittal and coronal computerized reformatted images of the chest were created at a workstation and archived for review.DOSE REDUCTION: CT imaging was performed with iterative reconstruction technique and/or automated exposure control to reduce radiation dose.COMPARISON: CT chest December 01, 2019.IMPRESSION: 1.Enlarging solid mass in the lingula consistent with primary lung malignancy until proven otherwis e.FINDINGS: Enlarging 6.8 x 6.1 x 5.6 cm solid mass in the anterior left upper lobe with associated postobstructive subsegmental atelectasis, previously measuring 5.8 x 5.8 x 5.2 cm. Mass occludes the anterior left upper lobe segmental bronchus, extends to the pleural surfaces, and there is a broad area of contact with the mediastinum. Mass may also extend to the hilum at the level of the superior pulmonary vein and left upper lobar bronchus.Mild to moderately severe centrilobular emphysema. Foci oflinear scarring within the lung bases. Right middle lobe calcified granuloma and calcified peribronchial lymph node. No abnormality of the airways. No pleural effusion.Heart is normal in size. Focal calcification of the proximal left circumflex coronary artery. No abnormality of the pericardium.Aorta is nonaneurysmal and there is diffuse and severe atherosclerotic disease with involvement of the archgreat vessels. Proximal left subclavian artery is occluded by dense calcified plaque, and there is dense calcified plaque narrowing the proximal and mid segments of the right subclavian artery. Pulmonary artery is normal in diameter.No mediastinal mass, thoracic lymphadenopathy, suspicious thyroid nodule, or abnormality of the esophagus.Images of the upper abdomen show calcified granulomas in the spleen, scarring of the kidneys, and diverticulosis of the colon.Degenerative changes in the spine. Healed posterolateral right sixth rib fracture with residual deformity. No acute or suspicious osseous lesion is identified.[id number] [facility] MethodistCOVID-19 qualitative [id number] 15:44:17 Test Item Value Reference Range Interpretation Comments Interpretation (test Negative results do code = 8197894) not preclude 2019-nCoV infection and should not be used as the sole basis for treatment or other patient management decisions. Negative results must be combined with clinical observations, patient history, and epidemiological information. COVID-19 qualitative Not-Detected Not-Detected PCR result (test code = 38746-0) COVID-19 qualitative See link below for C ase Number: PCR (test code = PDF Lab Report [id number]) [facility] MethodistComprehensive metabolic [id number] 12:25:40 Test Item Value Reference Range Interpretation Comments Sodium (test code = 133 135- 148 mEq/L L 2951-2) Potassium (test code = 4.3 3.5- 5.0 mEq/L 2823-3) Chloride (test code = 95 98- 112 mEq/L L 2075-0) CO2 (test code = 2027-9) 25 24- 31 mEq/L Anion gap (test code = 13@ANIO 7- 15 mEq/L 98692-5) BUN (test code = 3094-0) 10 mg/dL 8-23 Creatinine (test code = 0.69 mg/dL 0.5-0.9 2160-0) Glucose (test code = 124 mg/dL 65-99 H 2345-7) Calcium (test code = 10.3 mg/dL 8.8-10.2 H 63064-8) Protein (test code = 7.9 g/dL 6.3-8.3 -[place] n 2885-2) 4.6-7.0 g/dL1 week 4.4-7 .6 g/dL7 months-1y ear 5.1-7 .3 g/dL1-2 years 5.6-7 .5 g/dL>3 years 6.0-8 .0 g/dO81-605 6.3-8 .3 g/dL Albumin (test code = 4.1 g/dL 3.5-5 1751-7) A/G ratio (test code = 1.1 0.7-3.8 1759-0) Alkaline phosphatase 103 U/L 35-104 (test code = 6768-6) AST (test code = 1920-8) 33 U/L 10-35 ALT (test code = 1742-6) 24 U/L 5-50 Total bilirubin (test 0.5 mg/dL 0-1.2 code = 1974-2) Lab Interpretation (test Abnormal code = 79119-0) Alvaro MethodistEstimated [id number] 12:25:39 Test Item Value Reference Range Interpretation Comments Estimated GFR (test 85 mL/min/1.73 m2 [facility] Units code = 5488) InterpretationG 1 >=90 Normal or highG2 60-89 Mildly javfsncsuD7d 45-59 Mildly to mode rately pdxhbettbS6r 30-44 Moderately to severely decreasedG4 15-29 Severely decre asedG5 <15 Kidn ey failureThe eGFR was calculated usin g the Chronic Kidney Disease Epidemiology Co llaboration (CKD-EPI) equat ion. Interpretation is based on recommendations of the National Kidney Foundation-Kidn ey Disease Outcomes Qualit y Initiative (NKF-KDOQI) pub lished in 2014. Alvaro MethodistPartial thromboplastin time, [id number] 12:04:22 Test Item Value Reference Range Interpretation Comments PTT (test code = 33.3 23.0- 36.0 [place] [address]-4) unfractionated heparin is61.0-112.0 se conds which corresponds to Anti-Xa0.3-0.7 U/ml. Alvaro MethodistProthrombin time with [id number] 12:03:38 Test Item Value Reference Range Interpretation Comments Prothrombin time (test 12.3 11.5- 14.5 sec code = 5902-2) INR (test code = 0.9 The Interna tional 72199-1) Normalized Rati o (INR) is a therapeutic m onitoring tool for patien ts who are stable on oral anticoagulant t herapy. An INR of 2.0-3.0 is suggested for d eep vein thrombosis/pulm onary embolism. Alvaro MethodistCBC with platelet and [id number] 11:44:38 Test Item Value Reference Range Interpretation Comments WBC (test code = 49134-8) 11.00 4.50- 11.00 k/uL RBC (test code = 28257-7) 4.75 m/uL 4.2-5.5 HGB (test code = 718-7) 14.6 g/dL 12-16 HCT (test code = 4544-3) 44.5 % 37-47 MCV (test code = 787-2) 93.7 fL 82-100 MCH (test code = 785-6) 30.7 pg 27-34 MCHC (test code = 786-4) 32.8 g/dL 31-37 RDW - SD (test code = 41.0 fL 37-55 73331-6) MPV (test code = 64049-3) 8.7 fL 8.8-13.2 L Platelet count (test code 385 150- 400 k/uL = 83210-5) Nucleated RBC (test code 0.00 /100 WBC = 99325-2) Neutrophils (test code = 66.5 % 39-69 39945-5) Lymphocytes (test code = 21.7 % 25-45 L 09981-2) Monocytes (test code = 8.5 % 0-10 46963-9) Eosinophils (test code = 1.8 % 0-5 04683-7) Basophils (test code = 0.9 % 0-1 51185-7) Immature granulocytes 0.6 % 0-1 "Immat ure (test code = 77704-3) granul ocytes" (promyelocytes, myelocytes, metamyelocytes) Lab Interpretation (test Abnormal code = 51051-2) Alvaro MontoyaPET/CT Whole Body External [id number] 15:30:22This exam was not acquired at a Sikhism facility and has not been interpreted by a Sikhism Provider. The exam was imported into our imaging system.Alvaro Montoya
[2020-07-12] MEDS ORDERED: LIDOCAINE 1% 20 ML MDV ONE (06:59)
[2020-07-12] MEDS ORDERED: HEPA 1000U/500MLS 1,000 UNIT/500 ML BAG IV ONE (06:59)
[2020-07-12] MEDS ORDERED: NA CHLORIDE 0.9% 500 ML ONE (07:16)
[2020-07-12] MEDS ORDERED: MIDAZOLAM HCL 2 MG/2 ML INJ ONE ×3 (07:39→08:09)
[2020-07-12] MEDS ORDERED: FENTANYL CITR 100 MCG/2 ML ONE (07:40)
[2020-07-12] MEDS ORDERED: ATROPINE SULF 1 MG/10 ML SYR IV ONE (07:41)
[2020-07-12] MEDS ORDERED: METOPROLOL TARTRATE 5 MG/5 ML INJ IV ONE (07:52)
[2020-07-12 09:36] VITALS: TEMP 97.1
[2020-07-12 15:00] VITALS: BP 123/84; O2SAT 96
--- NOTE | 2020-07-14 05:10 | OP ---
Date of Procedure: 07/12/2020 Surgeon: Rohan Stephens MD Parts Counterman: Juarez Bowman. We held pressure on both groins for hemostasis because of the severe peripheral arterial disease bila terally. I believe if she needs any workup from that standpoint, I think a CT angiography with contr ast of her abdomen and lower extremity would be in order. The patient will go home. I will set up a n outpatient endarterectomy on her in the near future, but I would like her to have a Lexiscan before that. Procedure: Selective bilateral carotid angiogram for abnormal carotid Doppler. Description Of Procedure: Ms. Mata is 75-year-old, has had a history of CAD, PAD, CVD, documented severe stenosis on the right carotid by Doppler, brought into the [facility] as an outpatient, prepped and draped in routine sterile fashion and given Versed for sedation and fentanyl. A 6-Malay sheath was introduced initially in the right common femoral artery despite very weak pulses. I was unable to access the aorta. Angiography there showed 100% occlusion of the right common iliac artery. We s witched to the left groin and I was able to get through to the carotid. A JR4 was used to select the right common carotid artery and the left common carotid artery. She was found to have a normal comm on carotid bilaterally, normal external carotid bilaterally. Her ICA on the left had a 40% to 50% st enosis. Her right internal carotid artery had a 90% stenosis. The patient tolerated the procedure w ell. There were no complications. Blood Loss: 5 mL. Total Conscious Sedation: 45 minutes. Postoperative Diagnosis: Severe cerebrovascular disease. Right carotid endarterectomy is planned. We have to do a cardiac clearance prior to this. Ms. Mata is not having any claudication in the right lower extremity and I leave t hat alone for now. MARIANO/JEANIE Voice ID: [id number] Report ID: [id number]
== END 2020-07-12 15:01 | disposition home or self-care (01) ==
LOC: CCL 06:38
DX: I65.23 Occlusion and stenosis of bilateral carotid arteries (principal); I70.201 Unspecified atherosclerosis of native arteries of extremities, right leg; I25.10 Atherosclerotic heart disease of native coronary artery without angina pectoris; I10 Essential (primary) hypertension; E78.5 Hyperlipidemia, unspecified; F17.200 Nicotine dependence, unspecified, uncomplicated; Z85.118 Personal history of other malignant neoplasm of bronchus and lung; Z20.828 Contact with and (suspected) exposure to other viral communicable diseases
CPT/HCPCS: 85025; 80048; 36415; 85610; 85730; 71046; 36222; U0002; C1893; J2250 ×2; J3010; J7040; J1644

== ENCOUNTER 2023-05-05 06:27 | Day surgery (SDC) | payer OTHER ==
[2023-05-05] MEDS ORDERED: Phenylephrine HCl 10 MG/ML 1 ML VIAL ONE (07:30)
[2023-05-05] MEDS ORDERED: GLYCOPYRROLATE 0.2 MG/ML SYR ONE (07:30)
[2023-05-05] MEDS: Ringers Lactate 1,000 ML IV ONE ×2 (07:30→08:00)
[2023-05-05] MEDS: LIDOCAINE 4% TOP SOLUTION ONE ×2 (07:35→08:16)
[2023-05-05] MEDS ORDERED: LIDOCAINE 1% MPF 30 ML VIAL ONE (07:43)
[2023-05-05] MEDS ORDERED: propofoL 200 MG/20 ML VIAL IV ONE (08:10)
[2023-05-05] MEDS ORDERED: LIDOCAINE 1% MPF 5 ML VIAL ONE (08:10)
--- NOTE | 2023-05-05 10:41 | RAD REPORT ---
EXAM DESCRIPTION: RADChest Single View05/05/2023 9:47 am CLINICAL HISTORY: R/O PNEUMOTHORAX COMPARISON: Chest Pa And Lat (2 Views) dated 07/09/2020; Chest Single View dated 11/01/2019; Chest Si ngle View dated 10/14/2019; Chest Pa And Lat (2 Views) dated 10/13/2019; Ct Skull/Thigh dated 03/18/2023 TECHNIQUE: Portable AP view of the chest. FINDINGS: Lung rounded masslike opacity is stable. Adjacent airspace opacification, as well as a lay ering small left pleural effusion with underlying airspace disease, likely atelectasis, are probably stable compared to the prior PET-CT. Hazy right basilar airspace opacification may be new. Possibilit y of superimposed pneumonia cannot be entirely excluded. No pneumothorax. The cardiomediastinal conto urs are unremarkable. IMPRESSION: No pneumothorax. Left mid lung masslike airspace opacity, small left effusion, and bilat eral airspace opacification as above.
[2023-05-05 11:15] VITALS: O2SAT 100
[2023-05-05 11:18] VITALS: TEMP 97
[2023-05-05 11:19] VITALS: BP 113/68
--- NOTE | 2023-05-05 11:56 | RAD REPORT ---
EXAM DESCRIPTION: RAD - FLUORO-GUIDE FOR BRONCH UPT1HR - 05/05/2023 9:25 am CLINICAL HISTORY: RIGHT UPPER LOBE BRONCH COMPARISON: None available. FINDINGS: One image was sent to PACS, documenting hardware positions during an image guided bronchos copy procedure. No radiologist was available for the procedure, nor will any image interpretation he provided. Please refer to the procedural report for additional details. Fluoroscopy time: 121.6 seconds. IMPRESSION: Documentation of fluoroscopy utilization as above.
--- NOTE | 2023-05-05 12:03 | P.OP ---
Date of Service: 05/05/23 (Coloscopy with BAL, wire brushings and endobronchial biopsies) Findings and Operative Technique Patient is 78 years of age with a history of left lung cancer was treated developed a new lesion in the right hilar area stable endobronchial lesion has the reason for bronchoscopy Obtaining informed consent from the patient she was premedicated by anesthesia findings normal vocal cords normal trachea normal left-sided bronchial anatomy right upper lobe I am not sure if there is an endobronchial lesion in the posterior segment of the right upper lobe and he has multiple biopsies while brushings and a BAL was performed from the right upper lobe posterior segment. His superior segments look normal right middle lobe right lower lobe were all Left-sided anatomy appeared to be all normal no endobronchial lesions visible patient did not experience any complications pneumothorax to be discharged home
== END 2023-05-05 10:39 | disposition home or self-care (01) ==
LOC: OR 06:27
PROVIDERS: ATTEND Internal Medicine Sleep Medicine
PROC: 0B9C8ZX Drainage of Right Upper Lung Lobe, Via Natural or Artificial Opening Endoscopic, Diagnostic (ICD-10-PCS; 2023-05-05)
PROC: 0BBC8ZX Excision of Right Upper Lung Lobe, Via Natural or Artificial Opening Endoscopic, Diagnostic (ICD-10-PCS; principal; 2023-05-05 08:00)
DX: J98.4 Other disorders of lung (principal); R91.1 Solitary pulmonary nodule; C34.92 Malignant neoplasm of unspecified part of left bronchus or lung
CPT/HCPCS: 31624; 31625; 88108 ×2; 88305 ×2; 71045; 76000; J2704; J2001 ×2; J2371; J7120

== ENCOUNTER 2024-11-15 09:38 | Emergency (ER) | payer OTHER ==
[2024-11-15] MEDS ORDERED: HYDROCODONE/APAP 5/325 MG TAB ONE (10:22)
--- NOTE | 2024-11-15 11:31 | RAD REPORT ---
EXAMINATION: CT LUMBAR SPINE WITHOUT CONTRAST CLINICAL INDICATION: Female, 79 years old. PAIN TECHNIQUE: Axial CT images were obtained through the lumbar spine in soft tissue and bone windows wit hout intravenous contrast. Coronal and Sagittal reformatted images were created from the data set. One or more of the following dose reduction techniques were used: Automated exposure control, adjustm ent of the mA and/ or kV according to patient size, and/or iterative reconstruction. Unless otherwise specified, incidental findings do not require dedicated imaging follow-up. COMPARISON: PET/CT 03/18/2023 FINDINGS: For purposes of this dictation, it is assumed that there are 5 non rib-bearing lumbar type vertebrae, and the most caudal fully segmented lumbar vertebra is labeled L5. ALIGNMENT: The lumbar spine demonstrates normal alignment without scoliosis or spondylolisthesis. BONES: Inferior endplate compression deformity at L1, stable to mildly progressive since the prior PE T/CT. No significant buckling of the posterior cortex. Other vertebral body heights are preserved. No aggressive osseous lesions. DISCS: Intervertebral disc space heights are maintained. LEVELS: No significant disc herniation or canal stenosis at T12-L1 and L2-L3. Plate and facet remodel ing at L1-2 contributes to mild to moderate bilateral neural foraminal narrowing. Broad-based posterior disc bulge at L3-4 contributes to mild bilateral neural foraminal narrowing. Asymmetric pos terior disc bulge with additional right subarticular/foraminal components of protrusion at L4-5 contributes to right [id number] and left mild neural foraminal narrowing. Disc height loss with posterior disc osteophyte complex formation and disc vacuum phenomenon at L5-S1 contributes to bilateral moderate neural foraminal narrowing worse on the left. Central canal is overall patent. SOFT TISSUE: No soft tissue abnormalities. IMPRESSION: Inferior endplate compression deformity at L1, may be stable or mildly progressive compared to the pr ior PET/CT. No other acute lumbar spine abnormalities. Multilevel proliferative changes as above.
--- NOTE | 2024-11-15 11:46 | EDPHYS ---
Physician Documentation [facility] Name: Michela Mata Age: 79 yrs Sex: Female : 1945 Arrival Date: 11/15/2024 Time: 09:38 Bed 8 Private MD: ED Physician Jett Leiva HPI: 11/15 14:51 This 79 yrs old Female presents to ER via Ambulatory with complaints of Back Pain. rt 14:51 Patient presents to the ED with low back pain. Patient states that she tripped rt yesterday, caught herself on a table but did hyperextend her back while doing that, reports of pain to the lower back, nonradiating, aching nature, worse on the right compared to the left. Denies numbness, tingling, acute complaints, symptoms are moderate in severity, aching nature, no other aggravating or alleviating factors.. Historical: - PMHx: 10:11 Hypertension; ap3 - Immunization history:: Client reports receiving the 2nd dose of the Covid vaccine, Flu vaccine is up to date. - Infectious Disease History:: Denies. - Social history:: Smoking status: Patient denies any tobacco usage or history of. - Family history:: not pertinent. ROS: 14:51 Constitutional: Negative for fever, chills, and weight loss, Cardiovascular: Negative rt for chest pain, palpitations, and edema, Respiratory: Negative for shortness of breath, cough, wheezing, and pleuritic chest pain, Abdomen/GI: Negative for abdominal pain, nausea, vomiting, diarrhea, and constipation, MS/Extremity: Negative for injury and deformity, Skin: Negative for injury, rash, and discoloration, 14:51 Back: Positive for pain at rest, pain with movement, Exam: 14:51 Constitutional: This is a well developed, well nourished patient who is awake, alert, rt and in no acute distress. Head/Face: Normocephalic, atraumatic. Neck: Trachea midline, no thyromegaly or masses palpated, and no cervical lymphadenopathy. Supple, full range of motion without nuchal rigidity, or vertebral point tenderness. No Meningismus. Chest/axilla: Normal chest wall appearance and motion. Nontender with no deformity. No lesions are appreciated. Cardiovascular: Regular rate and rhythm with a normal S1 and S2. No gallops, murmurs, or rubs. Normal PMI, no JVD. No pulse deficits. Respiratory: Lungs have equal breath sounds bilaterally, clear to auscultation and percussion. No rales, rhonchi or wheezes noted. No increased work of breathing, no retractions or nasal flaring. Abdomen/GI: Soft, non-tender, with normal bowel sounds. No distension or tympany. No guarding or rebound. No evidence of tenderness throughout. Skin: Warm, dry with normal turgor. Normal color with no rashes, no lesions, and no evidence of cellulitis. MS/ Extremity: Pulses equal, no cyanosis. Neurovascular intact. Full, normal range of motion. Neuro: Awake and alert, GCS 15, oriented to person, place, time, and situation. Cranial nerves II-XII grossly intact. Motor strength 5/5 in all extremities. Sensory grossly intact. Cerebellar exam normal. Normal gait. 14:51 Back: Mild tenderness to the bilateral lower lumbar paraspinal regions, no midline tenderness, no step-offs, Vital Signs: 10:09 BP 144 / 69; Pulse 88; Resp 18; Temp 97.3; Pulse Ox 95% ; ap3 11:53 BP 145 / 70; Pulse 80; Resp 17; Temp 97.7; Pulse Ox 96% ; ap3 MDM: 10:07 Medical Screening Exam initiated rt 14:51 Differential diagnosis: Mechanical back pain, compression fracture, disc disease. Data rt reviewed: vital signs, nurses notes, radiologic studies. I considered the following discharge prescriptions or medication management in the emergency department Medications were administered in the Emergency Department. See MAR. Independent interpretation of the following test(s) in the Emergency Department CT Scan: My interpretation is L1 compression fracture syndrome interpretation of CT scan images. Test considered but Not performed: Other Details Stable vital signs, no urinary symptoms, urinalysis, blood work did not indicated. Care significantly affected by the following chronic conditions: Hypertension. Counseling: I had a detailed discussion with the patient and/or guardian regarding the historical points, exam findings, and any diagnostic results supporting the discharge/admit diagnosis, radiology results, the need for outpatient follow up. Response to treatment: the patient's symptoms have mildly improved after treatment. 11/15 10:15 Order name: CT Lumbar Spine Wo Con; Complete Time: 11:33 rt Administered Medications: 10:58 Drug: HYDROcodone-acetaminophen PO 5 mg-325 mg 1 tabs PO once Route: PO; ld1 Disposition Summary: 11/15/24 11:45 Discharge Ordered Notes: Location: Home rt Problem: new rt Symptoms: have improved rt Condition: Stable rt Diagnosis - Low back pain rt Followup: rt - With: Private Physician - When: 2 - 3 days - Reason: Discharge Instructions: - Discharge Summary Sheet rt - Acute Back Pain, Adult rt Forms: - Medication Reconciliation Form rt - Antibiotic Education rt - Prescription Opioid Use rt - Patient Portal Instructions rt - Leadership Thank You Letter rt Prescriptions: - Tramadol 50 mg Oral Tablet - take 1 tablet ORAL route every 8 hours as needed; 12 tablet; Refills: 0, rt Product Selection Permitted - Medrol (Bolivar) 4 mg Oral Tablets, Dose Pack - take 1 tablet ORAL route as directed - follow package instructions; 1 packet; rt Refills: 0, Product Selection Permitted Signatures: Dispatcher [employer] Robyn Nielsen RN RN ap3 Xiomara Whatley RN RN ld1 Jett Leiva MD MD rt
--- NOTE | 2024-11-15 11:46 | ER ---
Nurse's Notes [facility] Name: Michela Mata Age: 79 yrs Sex: Female : 1945 Arrival Date: 11/15/2024 Time: 09:38 Bed 8 Private MD: Diagnosis: Low back pain Presentation: 11/15 10:09 Chief complaint: Patient states: she tripped into a cabinet last night and it made her ap3 back bend back. patient reports that she is not on blood thinners and there was no LOC. Coronavirus screen: At this time, the client does not indicate any symptoms associated with coronavirus-19. Ebola Screen:. Initial Sepsis Screen: Does the patient meet any 2 criteria? No. Patient's initial sepsis screen is negative. Does the patient have a suspected source of infection? No. Patient's initial sepsis screen is negative. Risk Assessment: Do you want to hurt yourself or someone else? Patient reports no desire to harm self or others. Onset of symptoms was November 14, 2024. 10:09 Method Of Arrival: Ambulatory ap3 10:09 Acuity: ENOCH 4 ap3 Triage Assessment: 10:12 General: Appears in no apparent distress. Behavior is calm, cooperative, appropriate ap3 for age. Pain: Complains of pain in low back area. Neuro: Level of Consciousness is awake, alert, obeys commands, Oriented to person, place, time, situation, Appropriate for age. Respiratory: Airway is patent Respiratory effort is even, unlabored, Respiratory pattern is regular, symmetrical. Musculoskeletal: Reports pain in low back area. Historical: - PMHx: 10:11 Hypertension; ap3 - Immunization history:: Client reports receiving the 2nd dose of the Covid vaccine, Flu vaccine is up to date. - Infectious Disease History:: Denies. - Social history:: Smoking status: Patient denies any tobacco usage or history of. - Family history:: not pertinent. Screenin:13 Abuse screen: Denies threats or abuse. Nutritional screening: No deficits noted. ap3 Tuberculosis screening: No symptoms or risk factors identified. 11:53 [facility] ED Fall Risk Assessment (Adult) History of falling in the last 3 months, ap3 including since admission Yes- single mechanical fall (1 pt) Confusion or Disorientation No (0 pts) Intoxicated or Sedated No (0 pts) Impaired Gait No (0 pts) Mobility Assist Device Used No (0 pt) Altered Elimination No (0 pt) Score/Fall Risk Level 0 - 2 = Low Risk Oriented to surroundings, Maintained a safe environment, Educated pt \T\ family on fall prevention, incl call for assistance when getting out of bed, Assessed \T\ reinforced patient's understanding of fall precautions, Hourly rounding (assess needs \T\ fall precautionary measures) done, Used ambulatory aids as needed (educated on \T\ assisted with). Vital Signs: 10:09 BP 144 / 69; Pulse 88; Resp 18; Temp 97.3; Pulse Ox 95% ; ap3 11:53 BP 145 / 70; Pulse 80; Resp 17; Temp 97.7; Pulse Ox 96% ; ap3 ED Course: 09:41 Patient arrived in ED. mr 09:44 Jett Leiva MD is Attending Physician. rt 10:10 Geovani Pan, RN is Primary Nurse. bp 10:11 Triage completed. ap3 10:13 Arm band placed on right wrist. ap3 10:29 CT Lumbar Spine Wo Con In Process Unspecified. EDMS 11:54 Patient has correct armband on for positive identification. Provided Education on: ap3 discharge instructions. 11:54 No provider procedures requiring assistance completed. Patient did not have IV access ap3 during this emergency room visit. Administered Medications: 10:58 Drug: HYDROcodone-acetaminophen PO 5 mg-325 mg 1 tabs PO once Route: PO; ld1 Medication: 11:54 VIS not applicable for this client. ap3 Outcome: 11:45 Discharge ordered by . rt 11:54 Discharged to home via wheelchair, with family, ap3 11:54 Condition: good 11:54 Discharge instructions given to patient, Instructed on discharge instructions, follow up and referral plans. medication usage, Demonstrated understanding of instructions, follow-up care, medications, Prescriptions given X 2, 11:54 Patient left the ED. ap3 Signatures: Dispatcher [employer] EDOH Piter Cynthia, Reg Reg mr Geovani Pan, RN RN bp Robyn Kenny RN RN ap3 Xiomara Whatley RN RN ld1 Jett Leiva MD MD rt
[2024-11-15 12:01] VITALS: BP 145/70; TEMP 97.7; O2SAT 96
== END 2024-11-15 11:54 | disposition home or self-care (01) ==
LOC: ER 09:38
DX: M54.50 Low back pain, unspecified (principal)
CPT/HCPCS: 72131; 99283

== ENCOUNTER 2025-01-03 16:46 | Inpatient (IN) | payer OTHER ==
[2025-01-03] MEDS ORDERED: NA CHLORIDE 0.9% 1,000 ML ONE (17:36)
[2025-01-03 17:48] LABS: Absolute Eosinophils 0.1 K/uL (0-0.5); Absolute Lymphocytes (CBC) 0.9 K/uL (0.7-4.9); Absolute Neutrophil 10.7 K/uL (1.8-8.0); Basophils % 0.4 % (0-1.3); Hematocrit 36.7 % (36.0-45.0); Hemoglobin 13.1 g/dL (12.0-15.0); Lymphocytes % 6.9 % (15.3-44.8); MCHC 35.6 g/dL (32.0-36.0); MPV 7.9 fL (7.6-11.3); Monocytes % 7.9 % (3.3-12.3); Neutrophils % 83.8 % (41.7-73.7); Platelets 419 thou/uL (152-406); RBC Red Blood Cell Count 4.22 M/uL (3.86-4.86); Red Cell Distribution Width 12.9 % (12.1-15.2)
--- NOTE | 2025-01-03 17:50 | RAD REPORT ---
EXAM: CT brain without contrast HISTORY: Confusion COMPARISON: 2019 TECHNIQUE: Multiple contiguous axial images were obtained and a CT of the brain without contrast.. Sagittal and coronal reconstruction performed. Automated exposure control, adjustment of the mA and/or kV according to patient size, and/or iterative reconstruction. Unless otherwise specified, incidental f indings do not require dedicated imaging follow-up FINDINGS: An intracranial bleed is not seen Ventricles are normal caliber No extra-axial fluid collection noted Mild to moderate low-density paraventricular, deep and subcortical white matter probably ischemic aaron nges secondary to small vessel disease. Mild to moderate atrophy. Cerebellar vermis atrophy is present. No fluid within the visualized sinuses or mastoids noted. IMPRESSION: No acute intracranial abnormality noted. If the patient continues to have symptoms to suggest an acute intracranial abnormality then MRI of th e brain would be recommended.
[2025-01-03 17:51] LABS: Sqamous Epithelial <5 /HPF (None Seen); Urine Bacteria <20 /HPF (<20); Urine Crystals Unidentified Few /HPF (None Seen); Urine Mucus Slight /HPF (None Seen); Urine RBC <5 /HPF (None Seen); Urine WBC >50 /HPF (<5); Urine WBC Clump Rare /HPF (None Seen)
[2025-01-03 17:52] LABS: Specific Gravity 1.011 (1.005-1.030); Urine Bilirubin NEGATIVE (Negative); Urine Blood Trace (Negative); Urine Clarity Extremely Turbid (Clear); Urine Color Yellow (Yellow); Urine Culture Reflex Order REFLEXED; Urine Glucose NEGATIVE (Negative); Urine Ketones 1+ (Negative); Urine Microscopic Reflex YN NO UMIC; Urine Nitrite NEGATIVE (Negative); Urine Protein 2+ (Negative); Urine Urobilinogen Normal (Normal); Urine pH 6.5 (5.0-7.0)
[2025-01-03 17:53] LABS: PT Prothrombin Time 11.5 SECONDS (10-13.0); PTT, Activated Partial Thromb 32.5 SECONDS (27.2-37.4); Protime INR 1.01
[2025-01-03 18:03] LABS: Albumin 3.6 g/dL (3.4-5.0); Albumin/Globulin Ratio 0.9 (1.1-1.8); Bilirubin Total 1.2 mg/dL (0.2-1.0); Protein, Total 7.6 g/dL (6.4-8.2)
--- NOTE | 2025-01-03 18:05 | RAD REPORT ---
Procedure: Chest Single View HISTORY: Cough COMPARISON: 2022 FINDINGS: Patient has a known mass/opacity left upper lobe without obvious change. Left lung base is hazy without significant change which may represent chronic atelectasis. There is scarring right lung No significant pleural effusion noted. The heart is mildly enlarged. .
[2025-01-03] MEDS ORDERED: CEFTRIAXONE 2000 MG/VIAL ONE (18:37)
[2025-01-03] MEDS ORDERED: NA CHLORIDE 0.9% 50 ML ONE (18:38)
[2025-01-03] MEDS ORDERED: HYDRALAZINE HCL 20 MG/ML VIAL ONE (19:20)
[2025-01-03] MEDS ORDERED: POTASSIUM 25 MEQ EFFERV TAB ONE (19:21)
[2025-01-03] MEDS ORDERED: ONDANSETRON 4 MG/2 ML VIAL IV PRN (19:40)
--- NOTE | 2025-01-03 19:44 | P.HP ---
Certification for Inpatient Patient admitted to: Inpatient With expected LOS: >2 Midnights Practitioner: I am a practitioner with admitting privileges, knowledge of patient current condition, hospital course, and medical plan of care. Services: Services provided to patient in accordance with Admission requirements found in Title 42 Section 412.3 of the Code of Federal Regulations Patient History Date of Service: 01/04/25 Reason for admission: AMS History of Present Illness: 79 yo female with past medical history of hypertension was brought to ER with generalized weakness and altered mental status.Her family found her at home speaking incoherently and not answering the phone. Patient is a poor historian and altered hence could not provide any history. Hence most of the history is obtained from the chart review and also talking with the ER physician. She lives alone in a snf apartment. She also experiencing significant weakness, making it difficult for her to transfer independently. She reports feeling more confused over the past few days. No fever or chills. No nausea vomiting or diarrhea. Patient was assessed in the ER was found to have CT which was negative for any acute stroke And was admitted for further management of UTI and altered mental status Allergies No Known Allergies Allergy (Verified 05/05/23 09:37) Home medications list reviewed: Yes Home Medications: Pravastatin Sodium [Pravachol] 1 tab PO BEDTIME 08/10/19 Ropinirole HCl [Requip*] 1 tab PO BEDTIME 08/10/19 Amlodipine [Norvasc] 5 mg PO DAILY 07/09/20 Aspirin Chewable [Aspirin Chewable*] 81 mg PO DAILY 07/09/20 Albuterol Inhaler [Ventolin Inhaler] 2 puff IH Q6H PRN 04/21/23 Calcium Carbonate [Calcium] 600 mg PO DAILY 04/21/23 Cholecalciferol (Vitamin D3) [Vitamin D 1000 Iu Tab] 1,000 unit PO DAILY 04/21/23 Gabapentin [Neurontin] 100 mg PO BID 04/21/23 Levothyroxine Sodium 100 mcg PO BEDTIME 04/21/23 Lorata/Pseudoeph 12Hr [Claritin-D 12 Hour] 1 tab PO DAILY 04/21/23 Metoprolol Tartrate [Lopressor] 25 mg PO DAILY 04/21/23 - Past Medical/Surgical History Diabetic: No Past Medical History: Reviewed- Non-Contributory -: Hypertension -: Restless leg syndrome -: Left-sided lung mass nondiagnostic FNA Past Surgical History: Reviewed- Non-Contributory - Family History Family History: Reviewed- Non-Contributory - Social History Smoking Status: Never smoker Alcohol use: Yes CD- Drugs: No Caffeine use: Yes Review of Systems is unable to be obtained Physical Examination - Vital Signs Temperature: 98.8 F Blood Pressure: 140/108 Pulse: 120 Respirations: 18 Pulse Ox (%): 94 - Physical Exam General: Alert, Mild distress, Confused HEENT: Atraumatic, Normocephalic Neck: Supple, No Thyromegaly Respiratory: Clear to auscultation bilaterally, Normal air movement Cardiovascular: Regular rate/rhythm, Normal S1 S2 Capillary refill: <2 Seconds Gastrointestinal: Soft and benign, W/out hepatosplenomegaly Musculoskeletal: No clubbing Integumentary: No rashes Neurological: Other (Confused ) Lymphatics: No axilla or inguinal lymphadenopathy - Studies Laboratory Data (last 24 hrs) 01/03/25 01/03/25 01/03/25 17:30 17:30 17:30 WBC 12.70 H Hgb 13.1 Hct 36.7 Plt Count 419 H PT 11.5 INR 1.01 APTT 32.5 Sodium 121 L Potassium 3.0 L BUN 13 Creatinine 0.77 Glucose 100 Total Bilirubin 1.2 H AST 21 ALT 18 Alkaline Phosphatase 82 Assessment and Plan - Plan Acute encephalopathy possibly metabolic versus UTI Monitor closely in health care sanitary technician neuro vital signs closely CT head negative for any acute changes UTI Started on IV antibiotic Will obtain cultures Change antibiotic as per sensitivity. Hypokalemia Hyponatremia Dehydration Started on IV hydration Monitor electrolytes and replace accordingly Hypertension Antihypertensives titrated Continue home medications and titrate as needed Hyperlipidemia Continue statin GI/DVT prophylaxis Advanced directive full code Discharge Plan: Penitentiary Plan to discharge in: 48 Hours - Advance Directives Does patient have a Living Will: No Does patient have a Durable POA for Healthcare: No - Code Status/Comfort Care Code Status: Full Code Time Spent Managing Pts Care (In Minutes): 48
--- NOTE | 2025-01-03 19:53 | EDPHYS ---
Physician Documentation [facility] Name: Michela Mata Age: 79 yrs Sex: Female : 1945 Arrival Date: 01/03/2025 Time: 16:46 Bed 14 Private MD: ED Physician Erwin Graham HPI: 01/03 17:17 Chief Complaint: Altered mental status and weakness. History of Present Illness: Michela costello was brought to the emergency department after her family found her at home speaking incoherently and not answering the phone. She lives alone in a alf apartment. Upon arrival, Michela was found to be tachycardic and had a systolic blood pressure of 110, which is considered low for her, given her history of hypertension. She has not taken her antihypertensive medications. Michela is also experiencing significant weakness, making it difficult for her to transfer independently. She reports feeling more confused over the past few days. There is a concern for a urinary tract infection given her symptoms. Michela does not report any pain. Review of Systems: - Neurological: Altered mental status, confusion over the past few days. - Cardiovascular: Tachycardia. - General: Weakness. ROS otherwise negative. . Historical: - Allergies: 16:59 No Known Allergies; db - PMHx: 16:59 Hypertension; db - Immunization history:: Adult Immunizations unknown. - Infectious Disease History:: Denies. - Social history:: Smoking status: Patient/guardian denies using tobacco, but has a distant history of tobacco abuse. Exam: 17:17 Constitutional: This is a well developed, well nourished patient who is awake, alert, jr11 and in no acute distress. Head/Face: Normocephalic, atraumatic. Eyes: Extra-ocular motions intact. Lids and lashes normal. Conjunctiva and sclera are non-icteric and not injected. Cornea within normal limits. Periorbital areas with no swelling, redness, or edema. ENT: Nares patent. No nasal discharge, no septal abnormalities noted. Oropharynx with no redness, swelling, or masses, exudates, or evidence of obstruction, uvula midline. Mucous membranes moist. Neck: Trachea midline, no thyromegaly or masses palpated, and no cervical lymphadenopathy. Supple, full range of motion without nuchal rigidity, or vertebral point tenderness. No Meningismus. Chest/axilla: Normal chest wall appearance and motion. Nontender with no deformity. No lesions are appreciated. Cardiovascular: tachy regular Respiratory: diminished at bases Skin: Warm, dry with normal turgor. Normal color with no rashes, no lesions, and no evidence of cellulitis. MS/ Extremity: Pulses equal, no cyanosis. Neurovascular intact. Full, normal range of motion. Neuro: Alert, knows month and year, name, president, moving ext x 4 Vital Signs: 16:50 BP 146 / 122; Pulse 120; Resp 18; Temp 98.8; Pulse Ox 95% ; Weight 72.57 kg; Height 5 db ft. 6 in. ; 18:44 BP 156 / 106; Pulse 108; Resp 18; Pulse Ox 97% on R/A; ph 19:13 BP 211 / 134; Pulse 112; Resp 18; Pulse Ox 95% on R/A; Pain 0/10; rg5 19:40 BP 128 / 60; Pulse 120; Resp 18; Pulse Ox 97% on R/A; Pain 0/10; rg5 20:00 BP 112 / 63; Pulse 122; Resp 18; Pulse Ox 95% on R/A; Pain 0/10; rg5 21:00 BP 107 / 61; Pulse 115; Resp 18; Pulse Ox 95% on R/A; Pain 0/10; rg5 22:00 BP 110 / 65; Pulse 112; Resp 18; Pulse Ox 97% on R/A; Pain 0/10; rg5 16:50 Body Mass Index 25.82 (72.57 kg, 167.64 cm) db 19:13 Pain Scale: Adult rg5 19:40 Pain Scale: Adult rg5 20:00 Pain Scale: Adult rg5 21:00 Pain Scale: Adult rg5 22:00 Pain Scale: Adult rg5 MDM: 17:05 Medical Screening Exam initiated jr11 17:17 Differential Diagnosis: Medical Decision Making: Given Michela's presentation of altered jr11 mental status, tachycardia, and weakness, I am considering several differential diagnoses. The most common possibilities include a urinary tract infection, especially given her age and confusion. Delirium secondary to polypharmacy or medication non-compliance, such as missing her antihypertensive medications, is also possible. Less likely but more life-threatening considerations include a cerebrovascular accident or sepsis. Further evaluation, including a septic workup and possibly imaging, is warranted to rule out these conditions. Plan: - Initiate a septic workup, including urinalysis and cultures. - Monitor vital signs closely. - Administer IV fluids to address potential dehydration. - Consider catheterization if indicated. - Adjust medications as needed based on the findings. - Notify family about her condition and update them regularly. . 18:16 ED course: EKG interpreted by me shows sinus tachycardia, normal axis, normal jr11 intervals, no acute ST changes. panel monitor interpreted by me shows normal sinus rhythm rate of 100. 19:51 ED course: Dr Velarde accepted . [facility] 01/03 17:06 Order name: Blood Culture Adult (2) [facility] 01/03 17:06 Order name: CBC with Diff; Complete Time: 18:24 [facility] 01/03 17:06 Order name: CMP; Complete Time: 18:24 [facility] 01/03 17:06 Order name: Lactate w/ 2H reflex if indic.; Complete Time: 18:24 [facility] 01/03 17:06 Order name: Protime (+inr); Complete Time: 18:24 [facility] 01/03 17:06 Order name: Ptt, Activated; Complete Time: 18:24 [facility] 01/03 17:06 Order name: Urinalysis w/ reflexes; Complete Time: 18:24 [facility] 01/03 17:55 Order name: Urine Culture [facility] 01/03 19:45 Order name: CBC with Automated Diff [facility] 01/03 19:45 Order name: CBC with Automated Diff [facility] 01/03 19:45 Order name: Comprehensive Metabolic Panel [facility] 01/03 19:45 Order name: Comprehensive Metabolic Panel [facility] 01/03 17:06 Order name: Chest Single View XRAY; Complete Time: 18:24 [facility] 01/03 17:06 Order name: CT Head Brain wo Cont; Complete Time: 18:24 [facility] 01/03 17:06 Order name: EKG; Complete Time: 17:07 [facility] 01/03 17:06 Order name: Accucheck; Complete Time: 17:41 [facility] 01/03 17:06 Order name: Cardiac monitoring; Complete Time: 18:16 [facility] 01/03 17:06 Order name: Cath; Complete Time: 17:41 [facility] 01/03 17:06 Order name: EKG - Nurse/Tech; Complete Time: 18:13 [facility] 01/03 17:06 Order name: IV Saline Lock - Large Bore; Complete Time: 17:41 01/03 17:06 Order name: Labs collected and sent; Complete Time: 17:41 01/03 17:06 Order name: O2 Per Protocol; Complete Time: 17:41 01/03 17:06 Order name: O2 Sat Monitoring; Complete Time: 17:41 01/03 17:06 Order name: Vital Signs; Complete Time: 17:41 Administered Medications: 18:15 Drug: NS 0.9% IV 1000 ml IV at 1000 ml once; to be given as a bolus over 60 minutes ph Route: IV; Rate: 1000 ml; Site: left antecubital; 19:10 Follow up: IV Status: Completed infusion; IV Intake: 1000ml rg5 18:44 Drug: Rocephin IV 2 grams IV at calculated rate once; Given slow IV push per pharmacy ph instructions Route: IV; Rate: calculated rate; Site: left antecubital; 19:08 Follow up: Response: No adverse reaction; IV Status: Completed infusion ph 19:23 Drug: hydrALAZINE IVP 10 mg IVP once Route: IVP; Site: left antecubital; rg5 21:20 Follow up: Response: No adverse reaction; Blood sugar is lowered rg5 19:23 Drug: Potassium PO Effervescent Tablet 50 mEq PO once; dissolve in 4 ounces of water or rg5 juice Route: PO; 21:21 Follow up: Response: No adverse reaction rg5 Disposition Summary: 01/03/25 19:53 Hospitalization Ordered Notes: Hospitalization Status: Inpatient Admission [facility] Provider: Kennedy Velarde [facility] Location: Telemetry/[facility] (Inpatient) [facility] Condition: Stable [facility] Problem: new 11 Symptoms: are unchanged [facility] Bed/Room Type: Standard [facility] Room Assignment: 431(01/03/25 22:17) jb4 Diagnosis - Altered mental status, unspecified jr - hyponatremia [facility] Forms: - Medication Reconciliation Form 11 - SBAR form 11 - Leadership Thank You Letter [facility] Signatures: Dispatcher [employer] Radha Burr RN RN Manoj Daly RN RN jb4 Erwin Graham MD MD 11 Mellissa Adam RN RN Kumar, Moy, RN RN rg5 Corrections: (The following items were deleted from the chart) 17: 17:06 BLOOD CULTURE*+BA.LAB.BRZ ordered. EDMS EDMS 17: 17:06 CBC+H.LAB.BRZ ordered. EDMS EDMS 17: 17:06 COMPREHENSIVE METABOLIC PANEL+C.LAB.BRZ ordered. EDMS EDMS 17: 17:06 LACTATE+C.LAB.BRZ ordered. EDMS EDMS : 17:06 PROTIME (+INR)+COAG.LAB.BRZ ordered. EDMS EDMS 17: 17:06 PTT, ACTIVATED+COAG.LAB.BRZ ordered. EDMS EDMS 17: 17:06 Urinalysis+U.LAB.BRZ ordered. EDMS EDMS 17: 17:07 Chest Single View+RAD.RAD.BRZ ordered. EDMS EDMS 22:17 19:53 jr11 jb4
--- NOTE | 2025-01-03 19:53 | ER ---
Nurse's Notes [facility] Name: Michela Mata Age: 79 yrs Sex: Female : 1945 Arrival Date: 01/03/2025 Time: 16:46 Bed 14 Private MD: Diagnosis: Altered mental status, unspecified;hyponatremia Presentation: 01/03 16:50 Chief complaint: EMS states: AMS FAMILY FOUND PT ALTERED NOT SPEAKING CLEARLY. PT db ANSWERS QUESTIONS APPROPRIATELY BUT IS NOT AT BASELINE PER FAMILY. Coronavirus screen: Client denies travel out of the [place] in the last 14 days. At this time, the client does not indicate any symptoms associated with coronavirus-19. Ebola Screen: Patient negative for fever greater than or equal to 101.5 degrees Fahrenheit, and additional compatible Ebola Virus Disease symptoms Patient denies exposure to infectious person. Patient denies travel to an Ebola-affected area in the 21 days before illness onset. No symptoms or risks identified at this time. Initial Sepsis Screen: Does the patient meet any 2 criteria? HR > 90 bpm. No. Patient's initial sepsis screen is negative. Does the patient have a suspected source of infection? No. Patient's initial sepsis screen is negative. Risk Assessment: Do you want to hurt yourself or someone else? Patient reports no desire to harm self or others. Onset of symptoms was January 03, 2025. 16:50 Method Of Arrival: EMS: [facility] db 16:50 Acuity: ENOCH 2 db Triage Assessment: 16:59 General: Appears in no apparent distress. uncomfortable, Behavior is calm, cooperative. db Pain: Denies pain. Neuro: Level of Consciousness is awake, alert, obeys commands, Oriented to person, place, time, situation. Respiratory: Airway is patent Respiratory effort is even, unlabored, Respiratory pattern is regular, symmetrical. Historical: - Allergies: 16:59 No Known Allergies; db - PMHx: 16:59 Hypertension; db - Immunization history:: Adult Immunizations unknown. - Infectious Disease History:: Denies. - Social history:: Smoking status: Patient/guardian denies using tobacco, but has a distant history of tobacco abuse. Screenin:40 [facility] ED Fall Risk Assessment (Adult) History of falling in the last 3 months, ph including since admission No falls in past 3 months (0 pts) Confusion or Disorientation Yes (5 pts) Intoxicated or Sedated No (0 pts) Impaired Gait No (0 pts) Mobility Assist Device Used Yes (1 pt) Altered Elimination Yes (1 pt) Score/Fall Risk Level 3 or more points = High Risk Oriented to surroundings, Maintained a safe environment, Hourly rounding (assess needs \T\ fall precautionary measures) done, Used ambulatory aids as needed (educated on \T\ assisted with). Abuse screen: Denies threats or abuse. Denies injuries from another. Nutritional screening: No deficits noted. Tuberculosis screening: No symptoms or risk factors identified. Assessment: 17:39 General: Appears in no apparent distress. Behavior is restless, uncooperative. Pain: ph Denies pain. Neuro: Level of Consciousness is awake, confused, Oriented to person, place. Cardiovascular: Capillary refill < 3 seconds in bilateral fingers Patient's skin is warm and dry. Respiratory: Airway is patent Respiratory effort is even, unlabored, Respiratory pattern is regular, symmetrical. GI: Abdomen is round non-distended. Derm: Skin is pink, warm \T\ dry. 19:10 General: Appears in no apparent distress. comfortable, Behavior is calm, cooperative. rg5 Pain: Denies pain. Neuro: Level of Consciousness is awake, alert, Oriented to person, place. Cardiovascular: Patient's skin is warm and dry. Cardiovascular: Rhythm is sinus tachycardia. Respiratory: Airway is patent Respiratory effort is even, unlabored, Respiratory pattern is regular, symmetrical. GI: Abdomen is round non-distended, Abd is soft and non tender. : No signs and/or symptoms were reported regarding the genitourinary system. EENT: No deficits noted. Derm: Skin is intact, Skin is dry, Skin is normal. Musculoskeletal: Circulation, motion, and sensation intact. Range of motion: intact in all extremities. 20:00 Reassessment: No changes from previously documented assessment. Patient and/or family rg5 updated on plan of care and expected duration. Pain level reassessed. 21:00 Reassessment: No changes from previously documented assessment. Patient and/or family rg5 updated on plan of care and expected duration. Pain level reassessed. 21:34 Reassessment: [phone](son), [phone](son). rg5 22:24 Reassessment: No changes from previously documented assessment. Patient and/or family rg5 updated on plan of care and expected duration. Pain level reassessed. Vital Signs: 16:50 BP 146 / 122; Pulse 120; Resp 18; Temp 98.8; Pulse Ox 95% ; Weight 72.57 kg; Height 5 db ft. 6 in. ; 18:44 BP 156 / 106; Pulse 108; Resp 18; Pulse Ox 97% on R/A; ph 19:13 BP 211 / 134; Pulse 112; Resp 18; Pulse Ox 95% on R/A; Pain 0/10; rg5 19:40 BP 128 / 60; Pulse 120; Resp 18; Pulse Ox 97% on R/A; Pain 0/10; rg5 20:00 BP 112 / 63; Pulse 122; Resp 18; Pulse Ox 95% on R/A; Pain 0/10; rg5 21:00 BP 107 / 61; Pulse 115; Resp 18; Pulse Ox 95% on R/A; Pain 0/10; rg5 22:00 BP 110 / 65; Pulse 112; Resp 18; Pulse Ox 97% on R/A; Pain 0/10; rg5 16:50 Body Mass Index 25.82 (72.57 kg, 167.64 cm) db 19:13 Pain Scale: Adult rg5 19:40 Pain Scale: Adult rg5 20:00 Pain Scale: Adult rg5 21:00 Pain Scale: Adult rg5 22:00 Pain Scale: Adult rg5 ED Course: 16:48 Patient arrived in ED. kb3 16:50 Jett Leiva MD is Attending Physician. rt 16:55 Attending Physician role handed off by Jett Leiva MD jr11 16:55 Erwin Graham MD is Attending Physician. jr11 16:59 Triage completed. db 17:00 Arm band placed on Patient placed in an exam room. db 17:35 Radha Kumar, RN is Primary Nurse. ph 17:38 Initial lab(s) drawn, by me, sent to lab. Urine collected: straight cath specimen, ph altagracia colored. Maintain EMS IV. Dressing intact. Good blood return noted. Site clean \T\ dry. Gauge \T\ site: 20 LAC. Flushed with 10 mL NS. 17:41 Patient has correct armband on for positive identification. Bed in low position. Call ph light in reach. Side rails up X 1. Pulse ox on. NIBP on. Door closed. Noise minimized. Warm blanket given. Pillow given. 17:43 CT Head Brain wo Cont In Process Unspecified. EDMS 17:58 Chest Single View XRAY In Process Unspecified. EDMS 19:05 Moy Kumar, RON is Primary Nurse. rg5 19:10 No provider procedures requiring assistance completed. rg5 19:52 Kennedy Velarde MD is Hospitalizing Provider. jr11 20:14 Primary Nurse role handed off by Radha Kumar RN rv1 21:27 intact, No redness/swelling at site. rg5 21:30 Provided Education on: need for admit. rg5 Administered Medications: 18:15 Drug: NS 0.9% IV 1000 ml IV at 1000 ml once; to be given as a bolus over 60 minutes ph Route: IV; Rate: 1000 ml; Site: left antecubital; 19:10 Follow up: IV Status: Completed infusion; IV Intake: 1000ml rg5 18:44 Drug: Rocephin IV 2 grams IV at calculated rate once; Given slow IV push per pharmacy ph instructions Route: IV; Rate: calculated rate; Site: left antecubital; 19:08 Follow up: Response: No adverse reaction; IV Status: Completed infusion ph 19:23 Drug: hydrALAZINE IVP 10 mg IVP once Route: IVP; Site: left antecubital; rg5 21:20 Follow up: Response: No adverse reaction; Blood sugar is lowered rg5 19:23 Drug: Potassium PO Effervescent Tablet 50 mEq PO once; dissolve in 4 ounces of water or rg5 juice Route: PO; 21:21 Follow up: Response: No adverse reaction rg5 Medication: 17:41 VIS not applicable for this client. ph Intake: 19:10 IV: 1000ml; Total: 1000ml. rg5 Outcome: 19:53 Decision to Hospitalize by Provider. jr11 21:27 Admitted to ER Hold. Please see [facility] for further documentation. rg5 21:27 Condition: stable 21:27 Instructed on the need for admit, 23:40 Patient left the ED. rg5 Signatures: Dispatcher [employer] EDMS Radha Kumar RN RN Erwin Graham MD MD jr11 Anna Contreras RN RN kb3 Mellissa Adam, RN RN Jett Kohler MD MD rt Colleen Lin rv1 Moy Kumar, RN RN rg5 Corrections: (The following items were deleted from the chart) 20:50 20:49 Moy Kumar RN is Primary Nurse. rg5 rg5 21:27 21:00 Reassessment: No changes from previously documented assessment. Patient and/or rg5 family updated on plan of care and expected duration. Pain level reassessed. Patient is alert, oriented x 3, equal unlabored respirations, skin warm/dry/pink. rg5
[2025-01-04] MEDS: NA CHLORIDE 0.9% 1,000 ML IV SCH (00:09)
[2025-01-04] MEDS: CEFTRIAXONE 1,000 MG in NA CHLORIDE 0.9% 50 ML IVPB ONE (00:11)
[2025-01-04 00:16] VITALS: BMI 29.7
[2025-01-04] MEDS: METOPROLOL TARTRATE 5 MG/5 ML INJ IV STA (05:08)
[2025-01-04 07:32] LABS: Absolute Lymphocytes (CBC) 0.7 K/uL (0.7-4.9); Absolute Monocytes 1.8 K/uL (0.1-1.3); Absolute Neutrophil 17.9 K/uL (1.8-8.0); Basophils % 0.1 % (0-1.3); Eosinophils % 0.1 % (0-4.4); Hematocrit 40.9 % (36.0-45.0); Hemoglobin 14.2 g/dL (12.0-15.0); Lymphocytes % 3.4 % (15.3-44.8); MCH 30.5 pg (27.0-35.0); MCHC 34.6 g/dL (32.0-36.0); MPV 7.9 fL (7.6-11.3); Neutrophils % 87.4 % (41.7-73.7); Nucleated Red Blood Cells % 0.1 % (0-0); Platelets 443 thou/uL (152-406); RBC Red Blood Cell Count 4.65 M/uL (3.86-4.86); Red Cell Distribution Width 13.1 % (12.1-15.2)
[2025-01-04 08:03] LABS: Albumin 3.8 g/dL (3.4-5.0); Albumin/Globulin Ratio 0.8 (1.1-1.8); Anion Gap 21.3 mEq/L (5.0-15.0); Bilirubin Total 0.9 mg/dL (0.2-1.0); Globulin 4.5 g/dL (2.3-3.5); Potassium 3.3 mEq/L (3.5-5.1); Protein, Total 8.3 g/dL (6.4-8.2)
[2025-01-04 08:36] LABS: Blood Morphology Comment NOT SEEN (NOT SEEN); Platelet Estimate ADEQ; White Blood Cell Scan OK (OK)
[2025-01-04] MEDS: CEFTRIAXONE 1,000 MG in NA CHLORIDE 0.9% 50 ML IVPB SCH (09:02)
[2025-01-04] MEDS: KCL 20 MEQ/100 mL IVPB 20 MEQ/100 ML BAG IV SCH (11:34)
--- NOTE | 2025-01-04 15:15 | P.PN ---
Subjective Date of Service: 01/04/25 Chief Complaint: AMS Patient is drowsy but easily arousable. She denies any new complaint. No recorded fever. No reported agitation. Physical Examination - Vital Signs Temperature: 98.6 F Blood Pressure: 147/69 Pulse: 103 Respirations: 18 Pulse Ox (%): 92 - Studies Laboratory Data (last 24 hrs) 01/03/25 01/03/25 01/03/25 17:30 17:30 17:30 WBC 12.70 H Hgb 13.1 Hct 36.7 Plt Count 419 H PT 11.5 INR 1.01 APTT 32.5 Sodium 121 L Potassium 3.0 L BUN 13 Creatinine 0.77 Glucose 100 Total Bilirubin 1.2 H AST 21 ALT 18 Alkaline Phosphatase 82 Assessment And Plan - Plan Physical examination General: Oriented x1, NAD, HEENT: Conjunctiva not pale, anicteric sclera Neck: Supple, no elevated JVD Heart: Heart sounds 1 and 2 normal, regular rhythm, normal rate, no pedal edema Lungs: Clear to auscultation bilaterally, adequate breath sounds bilaterally, no rhonchi or crackles. Abdomen: Soft, nondistended, nontender, normal bowel sounds. Extremities: No tenderness, no deformity Skin: Normal skin turgor, no rash, no nodules or ulcers. Neuro: No focal motor deficit. Normal speech. Psychiatry: Drowsy, no agitation. Diagnosis Acute metabolic encephalopathy Acute cystitis without hematuria Hyponatremia Hypokalemia Essential hypertension Plan Acute encephalopathy Likely secondary to UTI and hyponatremia. Hyponatremia is improving. Continue antibiotic Continue IV NS. Neurochecks Acute cystitis without hematuria Urine cultures growing gram-negative rods. Leukocytosis trended up Change IV Rocephin to IV cefepime. Follow cultures. Change antibiotic as per sensitivity. Hyponatremia Hypokalemia Probably secondary to dehydration Continue IV NS Monitor BMP Replace electrolytes as needed. Hypertension Continue home medications. Hypothyroidism Resume home dose Synthroid. Check TSH DVT prophylaxis: Lovenox Advanced directive: full code
[2025-01-04] MEDS: METOPROLOL TAR 25 MG TAB PO SCH (16:40)
[2025-01-04] MEDS: POTASSIUM CL SA 10 MEQ TAB PO ONE (17:38)
[2025-01-04] MEDS ORDERED: PRAVASTATIN SODIUM 20 MG PO SCH (21:00)
[2025-01-04] MEDS: ATORVASTATIN 10 MG TAB PO SCH (21:10)
[2025-01-04] MEDS: LABETALOL 20 MG/4ML SYRINGE IV ONE (21:18)
[2025-01-05] MEDS: HYDRALAZINE HCL 20 MG/ML VIAL IV PRN (01:35)
[2025-01-05] MEDS: LEVOTHYROXINE SOD 0.1 MG TAB PO SCH (06:11)
[2025-01-05 07:12] LABS: Anion Gap 16.2 mEq/L (5.0-15.0); Potassium 3.2 mEq/L (3.5-5.1)
[2025-01-05] MEDS: ASPIRIN 81 MG CHEWABLE TABLET PO SCH (08:21)
[2025-01-05] MEDS: ENOXAPARIN 40 MG/0.4 ML SQ SCH (08:21)
[2025-01-05] MEDS: VITAMIN D 1000 UNIT TAB PO SCH (08:21)
[2025-01-05] MEDS: CALCIUM CARBONATE 500 MG TAB PO SCH (08:21)
[2025-01-05] MEDS: AMLODIPINE 5 MG TAB PO SCH (08:21)
[2025-01-05] MEDS ORDERED: HOME MED 1 EA UNK (Calcium Carbonate [Calcium] 600 MG Tablet) PO SCH (09:00)
[2025-01-05 10:01] LABS: Absolute Eosinophils 0.1 K/uL (0-0.5); Absolute Lymphocytes (CBC) 0.7 K/uL (0.7-4.9); Absolute Monocytes 1.4 K/uL (0.1-1.3); Absolute Neutrophil 11.5 K/uL (1.8-8.0); Basophils % 0.3 % (0-1.3); Eosinophils % 0.7 % (0-4.4); Hematocrit 35.8 % (36.0-45.0); Hemoglobin 12.4 g/dL (12.0-15.0); Lymphocytes % 5.1 % (15.3-44.8); MCH 30.4 pg (27.0-35.0); MCHC 34.5 g/dL (32.0-36.0); MPV 7.9 fL (7.6-11.3); Monocytes % 10.1 % (3.3-12.3); Neutrophils % 83.8 % (41.7-73.7); Nucleated Red Blood Cells % 0.1 % (0-0); Platelets 372 thou/uL (152-406); RBC Red Blood Cell Count 4.07 M/uL (3.86-4.86)
[2025-01-05] MEDS: KCL 20 MEQ/100 mL IVPB 20 MEQ/100 ML BAG IV SCH (11:24)
--- NOTE | 2025-01-05 17:28 | P.PN ---
Subjective Date of Service: 01/05/25 Chief Complaint: AMS Patient remained drowsy. No recorded fever. No reported agitation. Sodium level improved from yesterday. Physical Examination - Vital Signs Temperature: 97.9 F Blood Pressure: 161/59 Pulse: 104 Respirations: 16 Pulse Ox (%): 97 Assessment And Plan - Plan Physical examination General: Oriented x1, NAD, Neck: Supple, no elevated JVD Heart: Heart sounds 1 and 2 normal, regular rhythm, normal rate, no pedal edema Lungs: Clear to auscultation bilaterally, adequate breath sounds bilaterally, no rhonchi or crackles. Abdomen: Soft, nondistended, nontender, normal bowel sounds. Extremities: No tenderness, no deformity Skin: Normal skin turgor, no rash, no nodules or ulcers. Neuro: No focal motor deficit. Normal speech. Psychiatry: Drowsy, no agitation. Diagnosis Acute metabolic encephalopathy Acute cystitis without hematuria Hyponatremia Hypokalemia Essential hypertension Plan Acute encephalopathy Likely secondary to UTI and hyponatremia. Hyponatremia is improving. Continue antibiotic Continue IV NS. Neurochecks Acute cystitis without hematuria Urine cultures growing gram-negative rods. Changed IV Rocephin to IV cefepime. Follow cultures. Change antibiotic as per sensitivity. Hyponatremia Hypokalemia Probably secondary to dehydration Continue IV NS Monitor BMP Hypertension Continue home medications. Hypothyroidism On home dose Synthroid. 01/05 Hyponatremia continue to improve. Sodium level is up to 127 Urine cultures growing gram-negative rods. Blood cultures: No growth to date Leukocytosis trended down. Continue IV Rocephin Follow cultures PT consult. Diet as tolerated. DVT prophylaxis: Lovenox Advanced directive: full code
[2025-01-06 05:49] LABS: Anion Gap 13.1 mEq/L (5.0-15.0); Potassium 3.1 mEq/L (3.5-5.1)
[2025-01-06 05:52] LABS: Absolute Eosinophils 0.2 K/uL (0-0.5); Absolute Lymphocytes (CBC) 0.8 K/uL (0.7-4.9); Absolute Monocytes 1.5 K/uL (0.1-1.3); Absolute Neutrophil 13.9 K/uL (1.8-8.0); Basophils % 0.1 % (0-1.3); Eosinophils % 0.9 % (0-4.4); Hematocrit 36.4 % (36.0-45.0); Hemoglobin 12.8 g/dL (12.0-15.0); Lymphocytes % 4.8 % (15.3-44.8); MCH 30.9 pg (27.0-35.0); MCHC 35.1 g/dL (32.0-36.0); MPV 8.3 fL (7.6-11.3); Monocytes % 9.3 % (3.3-12.3); Neutrophils % 84.9 % (41.7-73.7); Nucleated Red Blood Cells % 0.1 % (0-0); Platelets 388 thou/uL (152-406); RBC Red Blood Cell Count 4.13 M/uL (3.86-4.86); Red Cell Distribution Width 13.1 % (12.1-15.2)
[2025-01-06] MEDS: KCL 20 MEQ/100 mL IVPB 20 MEQ/100 ML BAG IV SCH (06:47)
--- NOTE | 2025-01-06 16:51 | P.PN ---
Subjective Date of Service: 01/06/25 Chief Complaint: AMS Patient is more awake and interactive today No recorded fever. No reported agitation. Physical Examination - Vital Signs Temperature: 97.9 F Blood Pressure: 197/87 Pulse: 89 Respirations: 18 Pulse Ox (%): 93 - Studies Microbiology Data (last 24 hrs): 01/03/25 17:20 Clean Catch Urine Warren Count - Final >100,000 CFU/ML. 01/03/25 17:20 Clean Catch Urine - Final Klebsiella Pneumoniae Assessment And Plan - Plan Physical examination General: Oriented x1, NAD, Neck: Supple, no elevated JVD Heart: Heart sounds 1 and 2 normal, regular rhythm, normal rate, no pedal edema Lungs: Clear to auscultation bilaterally, adequate breath sounds bilaterally, no rhonchi or crackles. Abdomen: Soft, nondistended, nontender, normal bowel sounds. Extremities: No tenderness, no deformity Skin: Normal skin turgor, no rash. Neuro: No focal motor deficit. Normal speech. Psychiatry: Awake and interactive, pleasant Diagnosis Acute metabolic encephalopathy Acute cystitis without hematuria Hyponatremia Hypokalemia Essential hypertension Plan Acute encephalopathy Likely secondary to UTI and hyponatremia. Hyponatremia is improving. Continue antibiotic Continue IV NS. Neurochecks Acute cystitis without hematuria Urine cultures growing gram-negative rods. Changed IV Rocephin to IV cefepime. Follow cultures. Change antibiotic as per sensitivity. Hyponatremia Hypokalemia Probably secondary to dehydration Continue IV NS Monitor BMP Hypertension Continue home medications. Hypothyroidism On home dose Synthroid. 01/05 Hyponatremia continue to improve. Sodium level is up to 127 Urine cultures growing gram-negative rods. Blood cultures: No growth to date Leukocytosis trended down. Continue IV Rocephin Follow cultures PT consult. Diet as tolerated. 01/06 Hyponatremia stable Blood cultures: No growth Urine culture growing Klebsiella pneumonia sensitive to cephalosporins and fluoroquinolones. Continue IV Rocephin. PT evaluated patient today and she ambulated 220 feet with a walker and contact- guard assist. Encourage oral intake. DVT prophylaxis: Lovenox Advanced directive: full code
[2025-01-06] MEDS: MELATONIN 5 MG TABLET PO PRN (23:27)
[2025-01-07] MEDS: POTASSIUM 25 MEQ EFFERV TAB PO ONE ×2 (08:43→14:39)
[2025-01-07 12:47] VITALS: O2SAT 94
[2025-01-07] MEDS: ACETAMINOPHEN 325 MG TABLET PO PRN (13:33)
--- NOTE | 2025-01-07 15:19 | P.DS ---
Admission Date: 01/03/25 Discharge Date: 01/07/25 Disposition: [facility] HEALTH CARE Discharge Condition: FAIR Reason for Admission: AMS Brief History of Present Illness: 79 yo female with past medical history of hypertension was brought to ER with generalized weakness and altered mental status. Her family found her at home speaking incoherently and not answering the phone. Patient could not provide any history. She lives alone in a longterm apartment. She also experiencing significant weakness, making it difficult for her to transfer independently. No fever or chills. No nausea vomiting or diarrhea. Patient was assessed in the ER was found to have CT which was negative for any acute stroke. UA suggested the presence of UTI. Patient was admitted for further management. Hospital Course: Diagnosis Acute metabolic encephalopathy Acute cystitis without hematuria Hyponatremia Hypokalemia Essential hypertension Patient admitted to the medical floor and the following medical problems addressed: Acute encephalopathy Likely secondary to UTI and hyponatremia. Hyponatremia improved with IV NS, UTI adequately treated with antibiotics. Mental status improved to baseline. Patient tolerated diet and was ambulatory with a walker Acute cystitis without hematuria Urine cultures grew Klebsiella pneumonia sensitive to cephalosporins and fluoroquinolones. Patient treated with IV Rocephin. Mental status improved to baseline Blood culture showed no growth. IV Rocephin transitioned to oral cefpodoxime on discharge. Hyponatremia Hypokalemia Probably secondary to dehydration Hyponatremia significantly improved with IV NS. Hypokalemia was replaced. Hypertension Continued home medications. Patient is currently normotensive. Hypothyroidism Managed with home dose Synthroid. Overall patient mental status has improved to baseline, she ambulated with therapy, about 250 feet with a walker, she is tolerating diet and vitals are stable. He is deemed stable for discharge. She is discharged to continue treatment for UTI with oral antibiotics. Home health for custodial and therapy are also recommended. Vital Signs/Physical Exam: Temp Pulse Resp BP Pulse Ox 97.7 F 86 18 126/79 94 01/07/25 13:33 01/07/25 12:00 01/07/25 12:00 01/07/25 12:00 01/07/25 12:00 General: Alert, In no apparent distress, Oriented x3 HEENT: Mucous membr. moist/pink Neck: Supple, JVD not distended Respiratory: Clear to auscultation bilaterally, Normal air movement Cardiovascular: No edema, Regular rate/rhythm, Normal S1 S2 Gastrointestinal: Soft and benign, Non-distended, No tenderness Musculoskeletal: No swelling Integumentary: No rashes, No cyanosis Neurological: Normal strength at 5/5 x4 extr Laboratory Data at Discharge: WBC 16.40 thou/uL (4.3-10.9) H 01/06/25 05:23 Hgb 12.8 g/dL (12.0-15.0) 01/06/25 05:23 Hct 36.4 % (36.0-45.0) 01/06/25 05:23 Plt Count 388 thou/uL (152-406) 01/06/25 05:23 PT 11.5 SECONDS (10-13.0) 01/03/25 17:30 INR 1.01 01/03/25 17:30 APTT 32.5 SECONDS (27.2-37.4) 01/03/25 17:30 Sodium 134 mEq/L (136-145) L D 01/07/25 05:57 Potassium 3.3 mEq/L (3.5-5.1) L 01/07/25 13:25 BUN 16 mg/dL (7-18) 01/07/25 05:57 Creatinine 0.60 mg/dL (0.55-1.02) 01/07/25 05:57 Glucose 109 mg/dL (74-106) H 01/07/25 05:57 Total Bilirubin 0.9 mg/dL (0.2-1.0) 01/04/25 07:23 AST 32 U/L (15-37) 01/04/25 07:23 ALT 20 U/L (13-56) 01/04/25 07:23 Alkaline Phosphatase 88 U/L (45-117) 01/04/25 07:23 Home Medications: Pravastatin Sodium [Pravachol] 1 tab PO BEDTIME 08/10/19 Ropinirole HCl [Requip*] 1 tab PO BEDTIME 08/10/19 Amlodipine [Norvasc*] 5 mg PO DAILY 07/09/20 Aspirin Chewable [Aspirin Chewable*] 81 mg PO DAILY 07/09/20 Albuterol Inhaler [Ventolin Inhaler*] 2 puff IH Q6H PRN 04/21/23 Calcium Carbonate [Calcium] 600 mg PO DAILY 04/21/23 Cholecalciferol (Vitamin D3) [Vitamin D 1000 Iu Tab*] 1,000 unit PO DAILY 04/21/23 Gabapentin [Neurontin*] 100 mg PO BID 04/21/23 Levothyroxine Sodium 100 mcg PO DAILY 04/21/23 Metoprolol Tartrate [Lopressor*] 25 mg PO DAILY 04/21/23 Alendronate Sodium 70 mg PO UD 01/04/25 Tirzepatide [Mounjaro] 2.5 mg SQ UD 01/04/25 Tramadol HCl [Ultram] 50 mg PO BIDP PRN 01/04/25 Cefpodoxime Proxetil [Vantin] 200 mg PO BID #6 tab 01/07/25 New Medications: Cefpodoxime Proxetil [Vantin] 200 mg PO BID #6 tab Physician Discharge Instructions: Patient presented with altered mental status and generalized weakness secondary to urinary tract infection, dehydration and hyponatremia. Patient was treated with IV antibiotics, bacteria causing the urinary tract infection was identified. Patient was treated with appropriate IV antibiotic. Her mental status improved to baseline, patient ambulated with a walker during physical therapy evaluation. Hyponatremia was treated with IV normal saline. Sodium level significantly improved. Patient had hypokalemia which was replaced. Overall patient mental status has improved to baseline, she ambulated with therapy, about 250 feet with a walker, she is tolerating diet and vitals are stable. He is deemed stable for discharge. She is discharged to continue treatment for UTI with oral antibiotics. Home health for custodial and therapy are also recommended. Patient advised to follow-up with her PCP within 1 to 2 weeks. New medications prescribed-oral Vantin 200 mg twice a day for 3 days. Fall precautions advised. Followup: NONE,NONE [Primary Care Provider] - Time spent managing pt's care (in minutes): 39
[2025-01-07 16:43] VITALS: BP 117/79; TEMP 97.8
--- NOTE | 2025-01-10 13:03 | EKG ---
Test Date: 2025-01-04 Test Time: 03:23:19 [employer]: [id number] MEASUREMENT RESULTS: Intervals: Rate: 134 SC: 156 QRSD: 88 QT: 286 QTc: 427 [place]: P: SC: 156 QRS: 100 T: 28 INTERPRETIVE STATEMENTS: Sinus tachycardia Rightward axis Septal infarct, age undetermined T wave abnormality, consider inferior ischemia Abnormal ECG Compared to ECG 01/03/2025 18:10:41 Right-axis deviation now present T-wave abnormality now present Possible ischemia now present Myocardial infarct finding still present Electronically Signed On 01-10-25 12:45:30 CDT by Mesfin Lama
--- NOTE | 2025-01-10 13:05 | EKG ---
Test Date: 2025-01-03 Test Time: 18:10:41 Case Management Specialist: J LUIS MEASUREMENT RESULTS: Intervals: Rate: 108 NH: 198 QRSD: 96 QT: 358 QTc: 479 [place]: P: 82 NH: 198 QRS: 77 T: 43 INTERPRETIVE STATEMENTS: Sinus tachycardia Cannot rule out Anterior infarct, age undetermined Abnormal ECG Compared to ECG 08/10/2019 12:25:59 Myocardial infarct finding now present Sinus rhythm no longer present ST (T wave) deviation no longer present Electronically Signed On 01-10-25 12:45:57 CDT by Mesfin Lama
== END 2025-01-07 19:14 | disposition home health service (06) | DRG 640 ==
LOC: ER 16:46 → ERHOLD 19:40 → 4TH 22:30
PROVIDERS: ADMIT Family Medicine; ATTEND Internal Medicine
PROC: 02HV33Z Insertion of Infusion Device into Superior Vena Cava, Percutaneous Approach (ICD-10-PCS; principal; 2025-01-04)
DX: E87.1 Hypo-osmolality and hyponatremia (principal); G93.41 Metabolic encephalopathy; N30.00 Acute cystitis without hematuria; E86.0 Dehydration; E87.6 Hypokalemia; I10 Essential (primary) hypertension; E03.9 Hypothyroidism, unspecified; B96.1 Klebsiella pneumoniae [K. pneumoniae] as the cause of diseases classified elsewhere; Z79.899 Other long term (current) drug therapy; Z79.82 Long term (current) use of aspirin; Z79.890 Hormone replacement therapy; Z87.891 Personal history of nicotine dependence
CPT/HCPCS: 36415; 70450; 71045; 80048; 80053; 81003; 82947; 83605; 84132; 84443; 85025; 85610; 85730; 87040; 87077; 87086; 87088; 87186; 93005; 96361; 96365; 96375; 97116; 97161; 99285; J0360; J0696; J1650; J3480; J7030